=== PATIENT | female | born 1950 | race American Indian/Alaskan Native ===

== ENCOUNTER 2020-03-13 10:04 | Outpatient (CLI) | payer OTHER ==
[2020-03-13] MEDS ORDERED: LIDOCAINE (4%) 40 MG/ML TOPICAL SOLN 50 ML BOTTLE TP ONE (10:05)
== END 2020-03-13 10:05 | disposition home or self-care (01) ==
LOC: WOUND 10:04
PROVIDERS: ATTEND Surgery
DX: I87.313 Chronic venous hypertension (idiopathic) with ulcer of bilateral lower extremity (principal); E11.622 Type 2 diabetes mellitus with other skin ulcer; L97.822 Non-pressure chronic ulcer of other part of left lower leg with fat layer exposed; L97.811 Non-pressure chronic ulcer of other part of right lower leg limited to breakdown of skin; I10 Essential (primary) hypertension; E78.5 Hyperlipidemia, unspecified; Z87.891 Personal history of nicotine dependence

== ENCOUNTER 2021-11-26 15:32 | Outpatient (CLI) | payer MEDICARE ==
[2021-11-26 16:01] LABS: Hematocrit 34.9 % (30.3-42.9); Hemoglobin 11.4 gm/dl (10.1-14.3); Mean Corpuscular HGB Conc 33 % (30-34); Mean Corpuscular Volume 93 fl (79-97); Platelet Count 455 K/mm3 (140-440); Red Blood Count 3.73 M/mm3 (3.65-5.03); Red Cell Distribution Width 16.5 % (13.2-15.2)
[2021-11-26 16:19] LABS: Calcium 9.4 mg/dL (8.4-10.2)
[2021-11-26 16:45] LABS: Anisocytosis 1+; Basophils % (Manual) 0 % (0.0-1.8); Eosinophils % (Manual) 0 % (0.0-4.3); Total Cells Counted 100
[2021-11-26 16:46] LABS: Platelet Estimate Consistent w Auto; Toxic Granulation 2+; Toxic Vacuolation 1+
== END 2021-11-26 15:33 | disposition home or self-care (01) ==
LOC: LAB 15:32
PROVIDERS: ATTEND Surgery
DX: I10 Essential (primary) hypertension (principal); E11.9 Type 2 diabetes mellitus without complications; E78.5 Hyperlipidemia, unspecified
CPT/HCPCS: 36415; 80053; 83036; 85007; 85025

== ENCOUNTER 2021-11-26 17:40 | Observation (INO) | payer MEDICARE ==
[2021-11-26 20:17] LABS: Hematocrit 34.8 % (30.3-42.9); Hemoglobin 11.3 gm/dl (10.1-14.3); Mean Corpuscular HGB Conc 33 % (30-34); Mean Corpuscular Volume 93 fl (79-97); Platelet Count 495 K/mm3 (140-440); Red Blood Count 3.74 M/mm3 (3.65-5.03); Red Cell Distribution Width 16.1 % (13.2-15.2)
[2021-11-26 20:36] LABS: Albumin 2.9 g/dL (3.9-5); Calcium 9.4 mg/dL (8.4-10.2)
[2021-11-26] MEDS ORDERED: CEFEPIME/NS 1 GM/100 ML 1 GM/100 ML BAG IV ONE (20:40)
[2021-11-26] MEDS ORDERED: ONDANSETRON 4 MG/2 ML INJ IV ONE (20:42)
[2021-11-26] MEDS ORDERED: fentaNYL 100 MCG/2 ML INJ IV ONE (20:42)
--- NOTE | 2021-11-26 20:51 | Emergency Department Report ---
HPI - General Chief Complaint: Recheck/Abnormal Lab/Rx Time Seen by Provider: 11/26/21 20:25 - HPI HPI: MSE 5 The patient is a 71-year-old female present with a chief complaint of lower extremity infection/leukocytosis. Patient has a history of chronic lower extremity ulcers secondary to diabetes and is followed by a surgeon Dr. Sterling. The patient had an appointment today for debridement and surgeon was concerned for infection and sent the patient to the hospital for labs. Labs were drawn revealed leukocytosis with a white count of 21.1. Dr. Sterling then called the patient at home and instructed her to come to the hospital. Patient admits to chronic clear drainage from the wound for over a year. Patient denies history of fever. Patient complains of chronic pain to the lower extremities since last year ED Past Medical Hx - Past Medical History Hx Diabetes: Yes Additional medical history: DIABETIC ULCERS/ HIGH CHLOESTROL - Surgical History Hx Breast Surgery: Yes (Lumpectomy) Additional Surgical History: Lower extremity chronic ulcer debridements - Family History Family history: no significant - Social History Smoking Status: Former Smoker (None x >15 years) Substance Use Type: Alcohol (Occasional) ED Review of Systems ROS: Stated complaint: BLOOD RESULTS Other details as noted in HPI Constitutional: denies: fever Eyes: denies: eye pain ENT: denies: throat pain Respiratory: no symptoms reported Cardiovascular: denies: chest pain Endocrine: no symptoms reported Gastrointestinal: denies: abdominal pain Genitourinary: denies: dysuria Musculoskeletal: denies: back pain Skin: lesions Neurological: denies: headache Physical Exam - Physical Exam Vital Signs: Vital Signs 11/26/21 18:50 Temperature 98.2 F Pulse Rate 112 H Respiratory 20 Rate Blood Pressure 147/80 O2 Sat by Pulse 99 Oximetry Physical Exam: GENERAL: The patient is well-developed well-nourished female sitting in wheelchair not appearing to be in acute distress HEENT: Normocephalic. Atraumatic. Extraocular motions are intact. Patient has moist mucous membranes. NECK: Supple. Trachea midline CHEST/LUNGS: Clear to auscultation. There is no respiratory distress noted. HEART/CARDIOVASCULAR: Regular. There is tachycardia. There is no gallop rub or murmur. ABDOMEN: Abdomen is soft, nontender. Patient has normal bowel sounds. There is no abdominal distention. SKIN: . There is no diaphoresis. Left lower extremity with circumferential ulceration status post debridement of healthy-appearing granulation tissue copious serous drainage present on dressing. Right lower extremity with denuded skin circumferentially. NEURO: The patient is awake, alert, and oriented. The patient is cooperative. The patient has no focal neurologic deficits. The patient has normal speech. GCS 15 MUSCULOSKELETAL: There is no evidence of acute injury. ED Course Vital Signs 11/26/21 18:50 Temperature 98.2 F Pulse Rate 112 H Respiratory 20 Rate Blood Pressure 147/80 O2 Sat by Pulse 99 Oximetry ED Medical Decision Making - Lab Data Result diagrams: 11/26/21 19:54 11/26/21 19:54 Laboratory Tests 11/26/21 11/26/21 11/26/21 19:54 19:54 19:54 WBC 21.5 H RBC 3.74 Hgb 11.3 Hct 34.8 MCV 93 MCH 30 MCHC 33 RDW 16.1 H Plt Count 495 H Sodium 130 L Potassium 5.6 H Chloride 92.7 L Carbon Dioxide 20 L Anion Gap 23 BUN 27 H Creatinine 1.8 H Estimated GFR 33 BUN/Creatinine Ratio 15 Glucose 137 H Lactic Acid 1.50 Calcium 9.4 Total Bilirubin 0.40 AST 47 H ALT 31 Alkaline Phosphatase 170 H Total Protein 7.7 Albumin 2.9 L Albumin/Globulin Ratio 0.6 - Differential Diagnosis Diabetic wound infection Critical care attestation.: If time is entered above; I have spent that time in minutes in the direct care of this critically ill patient, excluding procedure time. ED Disposition Clinical Impression: Wound infection, Leukocytosis, Renal insufficiency, Hyperkalemia Disposition: ADMITTED INPATIENT Is pt being admited?: Yes Does the pt Need Aspirin: No Condition: Fair Time of Disposition: 21:15 (Hospitalist called (Dr Aragon))
[2021-11-26] MEDS ORDERED: SODIUM POLYSTYRENE 15 GM/60 ML ORAL LIQD PO ONE (20:57)
[2021-11-26] MEDS ORDERED: CALCIUM GLUCONATE 1,000 MG in SODIUM CHLORIDE 0.9% 100 ML IV ONE (20:59)
[2021-11-26] MEDS ORDERED: ACETAMINOPHEN 325 MG TAB PO PRN (22:32)
[2021-11-26] MEDS ORDERED: ONDANSETRON 4 MG/2 ML INJ IV PRN (22:32)
[2021-11-26] MEDS ORDERED: MAGNESIUM HYDROXIDE (MOM) ORAL LIQD UDC PO PRN (22:32)
[2021-11-26] MEDS ORDERED: DEXTROSE 10% *Hypoglycemia IV PRN (22:41)
--- NOTE | 2021-11-26 22:42 | History and Physical Report ---
History of Present Illness Date of examination: 11/26/21 Date of admission: 11/26/2021 Chief complaint: Wound Infection History of present illness: 71-year-old female with known history of diabetes mellitus and chronic bilateral lower extremity ulcers presents to the emergency room today after being referred by her surgeon Dr. Sterling for further evaluation with concerns for possible infection. Patient was said to have had an appointment for debridement today per surgeon decided to send patient to the emergency room to have labs and to be further evaluated. Labs drawn reveals a leukocytosis of 21.1 Patient denies any fever or chills, no chest pain or shortness of breath, no nausea vomiting and no abdominal pain. She admits that wound has had clear drainage from the wound over the past 1 year. She has also been having chronic bilateral lower extremity pain. Further work-up today reveals hyponatremia 130 and hyperkalemia 5.6. Patient being admitted for possible infected lower extremity wound and hyperkalemia. She has been started on empiric IV antibiotics and has also had a dose of Kayexalate. Past History Past Medical History: diabetes Past Surgical History: Other (Lower extremity chronic ulcer debridements,Lumpectomy) Social history: smoking (Former Smoker (None x >15 years)), alcohol abuse (Alcohol (Occasional)) Family history: no significant family history Medications and Allergies Allergies Allergy/AdvReac Type Severity Reaction Status Date / Time No Known Allergies Allergy Verified 11/26/21 18:42 Active Meds: Active Medications CALC GLUCONATE 1GM/NS 100 ML (Calcium Gluonate/Ns 1,000mg/100ml) 1 gm in 100 mls @ 375 mls/hr IV ONCE ONE Stop: 11/26/21 22:45 Review of Systems Constitutional: no fever, no chills Ears, nose, mouth and throat: no nasal congestion, no sore throat Cardiovascular: no chest pain, no palpitations Respiratory: no cough, no shortness of breath Gastrointestinal: no abdominal pain, no nausea, no vomiting, no diarrhea Genitourinary Female: no pelvic pain, no flank pain, no dysuria, no hematuria Musculoskeletal: no neck pain, no low back pain Integumentary: no rash, no pruritis Neurological: no headaches, no confusion Psychiatric: no anxiety, no depression Endocrine: no polydipsia, no polyuria, no nocturia Exam - Constitutional Vitals: Temp Pulse Resp BP Pulse Ox 98.2 F 112 H 20 147/80 99 11/26/21 18:50 11/26/21 18:50 11/26/21 18:50 11/26/21 18:50 11/26/21 18:50 General appearance: Present: no acute distress, well-nourished - EENT Eyes: Present: PERRL, EOM intact. Absent: scleral icterus ENT: hearing intact, clear oral mucosa, dentition normal - Neck Neck: Present: supple, normal ROM - Respiratory Respiratory effort: normal Respiratory: bilateral: CTA - Cardiovascular Rhythm: regular Heart Sounds: Present: S1 & S2. Absent: gallop, systolic murmur, diastolic murmur, rub, click - Extremities Extremities: no ischemia, pulses intact, pulses symmetrical, No edema, normal temperature, normal color, Full ROM Extremity abnormal: ulceration (Open ulcers on both lower extremities,left leg ulcer more prominent than the right, no obvious bleeding.,tender)), tenderness Peripheral Pulses: within normal limits - Abdominal General gastrointestinal: Present: soft, non-tender, non-distended, normal bowel sounds. Absent: mass - Musculoskeletal Musculoskeletal: strength equal bilaterally - Psychiatric Psychiatric: appropriate mood/affect, intact judgment & insight, memory intact, cooperative - Neurologic Neurologic: CNII-XII intact, no focal deficits, moves all extremities Results - Labs CBC & Chem 7: 11/26/21 19:54 11/26/21 19:54 Labs: Abnormal lab results 11/26/21 11/26/21 Range/Units 19:54 19:54 WBC 21.5 H (4.5-11.0) K/mm3 RDW 16.1 H (13.2-15.2) % Plt Count 495 H (140-440) K/mm3 Sodium 130 L (137-145) mmol/L Potassium 5.6 H (3.6-5.0) mmol/L Chloride 92.7 L (98-107) mmol/L Carbon Dioxide 20 L (22-30) mmol/L BUN 27 H (7-17) mg/dL Creatinine 1.8 H (0.6-1.2) mg/dL Glucose 137 H (65-100) mg/dL AST 47 H (5-40) units/L Alkaline Phosphatase 170 H (35-129) units/L Albumin 2.9 L (3.9-5) g/dL Assessment and Plan - Patient Problems (1) Wound infection Current Visit: Yes Status: Acute Plan to address problem: Patient commenced on empiric IV antibiotics. Patient being followed by surgeon Dr. Sterling. We will also place consult to wound care team for evaluation. (2) Diabetes mellitus Current Visit: Yes Status: Acute Plan to address problem: Patient placed on sliding scale insulin. We will monitor Accu-Cheks closely. (3) Hyperkalemia Current Visit: Yes Status: Acute Plan to address problem: Patient has been given Kayexalate in the emergency room. We will monitor potassium levels. (4) Leukocytosis Current Visit: Yes Status: Acute Plan to address problem: Possibly secondary to underlying infection. We will continue on antibiotics and also monitor CBC. (5) Renal insufficiency Current Visit: Yes Status: Acute Plan to address problem: We will hydrate patient with IV fluid. We will request nephrology evaluation. (6) DVT prophylaxis Current Visit: Yes Status: Acute Plan to address problem: We will place patient on subcutaneous heparin. (7) Full code status Current Visit: Yes Status: Acute Plan to address problem: Patient is full code.
[2021-11-26] MEDS: CALC GLUCONATE 1GM/NS 100 ML 1 GM/100 ML BAG IV ONE (22:50)
[2021-11-26] MEDS: HYDROmorphone 1 MG/1 ML INJ IV PRN (22:55)
[2021-11-26] MEDS: VANCOMYCIN/NS 1 GM/250 ML 1 GM/250 ML BAG IV ONE (22:57)
[2021-11-27 00:41] LABS: Total Cells Counted 100
[2021-11-27 00:42] LABS: Basophils % (Manual) 0 % (0.0-1.8); Eosinophils % (Manual) 0 % (0.0-4.3)
[2021-11-27 00:44] LABS: Anisocytosis 1+; Platelet Estimate Consistent w Auto
[2021-11-27] MEDS ORDERED: VANCOMYCIN PHARMACY TO DOSE IV SCH (01:00)
[2021-11-27] MEDS ORDERED: PIPERACIL/TAZOBACTA 4.5/NS 100 4.5 GM/100 ML VIAL IV SCH (01:00)
[2021-11-27] MEDS: SODIUM CHLORIDE 0.9% 1000 ML 1,000 ML IV SCH ×2 (01:00→12:59)
[2021-11-27] MEDS: HYDROmorphone 1 MG/1 ML INJ IV PRN ×4 (02:32→16:20)
[2021-11-27] MEDS: PIPERACIL-TAZO 2.25 GM/50 ML 2.25 GM/50 ML BAG IV SCH ×2 (05:31→12:59)
[2021-11-27] MEDS: HEPARIN 5,000 UNIT/1 ML VIAL SUB-Q SCH ×3 (05:32→22:02)
[2021-11-27 06:52] LABS: Calcium 8.1 mg/dL (8.4-10.2)
--- NOTE | 2021-11-27 08:05 | Progress Note ---
Assessment and Plan Assessment and plan: #Sepsis #Bilateral chronic venous stasis with ulceration -General Surgery evaluated patient and is okay with discharge and outpatient follow up if clinically improved -continue vancomycin, zosyn discontinued and rocephin started -will be discharged with doxycycline 100mg BID with 7 day total course -patient encouraged to keep legs elevated whenever possible -qday wound dressing changes per Surgeon recommendations -ID following, assistance appreciated #Acute kidney injury -Cr 1.4 -likely secondary to vasomotor nephropathy 2/2 to volume depletion -noted improvement with IVF, will continue #Volume depletion -continue IVFs #Advance care planning -Disease education, care plan, diagnosis, prognosis discussed with next of kin and patient. They understand and acknowledges current plan. -Patient will be discharged with home health services and will follow up with Dr. Sterling outpatient -Time: +30 minutes History Interval history: No acute events overnight. Dressing changes this morning. Patient currently without pain. No complaints at this time. Hospitalist Physical - Physical exam Narrative exam: GENERAL: Well-developed well-nourished. In no acute distress. HEENT: Normocephalic. Atraumatic. NECK: Supple. CHEST/LUNGS: CTAB on room air HEART/CARDIOVASCULAR: RRR. No murmur, rubs or gallops appreciated. ABDOMEN: +BS. NT/ND. NEURO: No focal motor deficit. Follows all commands. MUSCULOSKELETAL: No joint effusion EXTREMITIES: BLE dressing intact PSYCH: Cooperative. - Constitutional Vitals: Temp Pulse Resp BP Pulse Ox 97.8 F 92 H 16 126/70 99 11/27/21 04:20 11/27/21 04:20 11/27/21 04:20 11/27/21 04:20 11/27/21 04:20 General appearance: Present: no acute distress, well-nourished HEART Score - HEART Score Troponin: WBC 21.5 K/mm3 (4.5-11.0) H 11/26/21 19:54 RBC 3.74 M/mm3 (3.65-5.03) 11/26/21 19:54 Hgb 11.3 gm/dl (10.1-14.3) 11/26/21 19:54 Hct 34.8 % (30.3-42.9) 11/26/21 19:54 MCV 93 fl (79-97) 11/26/21 19:54 MCH 30 pg (28-32) 11/26/21 19:54 MCHC 33 % (30-34) 11/26/21 19:54 RDW 16.1 % (13.2-15.2) H 11/26/21 19:54 Plt Count 495 K/mm3 (140-440) H 11/26/21 19:54 Add Manual Diff Complete 11/26/21 19:54 Total Counted 100 11/26/21 19:54 Seg Neuts % (Manual) 87.0 % (40.0-70.0) H 11/26/21 19:54 Band Neutrophils % 0 % 11/26/21 19:54 Lymphocytes % (Manual) 12.0 % (13.4-35.0) L 11/26/21 19:54 Reactive Lymphs % (Man) 0 % 11/26/21 19:54 Monocytes % (Manual) 1.0 % (0.0-7.3) 11/26/21 19:54 Eosinophils % (Manual) 0 % (0.0-4.3) 11/26/21 19:54 Basophils % (Manual) 0 % (0.0-1.8) 11/26/21 19:54 Metamyelocytes % 0 % 11/26/21 19:54 Myelocytes % 0 % 11/26/21 19:54 Promyelocytes % 0 % 11/26/21 19:54 Blast Cells % 0 % 11/26/21 19:54 Nucleated RBC % Not Reportable 11/26/21 19:54 Seg Neutrophils # Man 18.7 K/mm3 (1.8-7.7) H 11/26/21 19:54 Band Neutrophils # 0.0 K/mm3 11/26/21 19:54 Lymphocytes # (Manual) 2.6 K/mm3 (1.2-5.4) 11/26/21 19:54 Abs React Lymphs (Man) 0.0 K/mm3 11/26/21 19:54 Monocytes # (Manual) 0.2 K/mm3 (0.0-0.8) 11/26/21 19:54 Eosinophils # (Manual) 0.0 K/mm3 (0.0-0.4) 11/26/21 19:54 Basophils # (Manual) 0.0 K/mm3 (0.0-0.1) 11/26/21 19:54 Metamyelocytes # 0.0 K/mm3 11/26/21 19:54 Myelocytes # 0.0 K/mm3 11/26/21 19:54 Promyelocytes # 0.0 K/mm3 11/26/21 19:54 Blast Cells # 0.0 K/mm3 11/26/21 19:54 WBC Morphology Not Reportable 11/26/21 19:54 Hypersegmented Neuts Not Reportable 11/26/21 19:54 Hyposegmented Neuts Not Reportable 11/26/21 19:54 Hypogranular Neuts Not Reportable 11/26/21 19:54 Smudge Cells Not Reportable 11/26/21 19:54 Toxic Granulation Not Reportable 11/26/21 19:54 Toxic Vacuolation Not Reportable 11/26/21 19:54 Dohle Bodies Not Reportable 11/26/21 19:54 Pelger-Huet Anomaly Not Reportable 11/26/21 19:54 Gerardo Rods Not Reportable 11/26/21 19:54 Platelet Estimate Consistent w auto 11/26/21 19:54 Clumped Platelets Not Reportable 11/26/21 19:54 Plt Clumps, EDTA Not Reportable 11/26/21 19:54 Large Platelets Not Reportable 11/26/21 19:54 Giant Platelets Not Reportable 11/26/21 19:54 Platelet Satelliting Not Reportable 11/26/21 19:54 Plt Morphology Comment Not Reportable 11/26/21 19:54 RBC Morphology Not Reportable 11/26/21 19:54 Dimorphic RBCs Not Reportable 11/26/21 19:54 Polychromasia Not Reportable 11/26/21 19:54 Hypochromasia Not Reportable 11/26/21 19:54 Poikilocytosis Not Reportable 11/26/21 19:54 Anisocytosis 1+ 11/26/21 19:54 Microcytosis Not Reportable 11/26/21 19:54 Macrocytosis Not Reportable 11/26/21 19:54 Spherocytes Not Reportable 11/26/21 19:54 Pappenheimer Bodies Not Reportable 11/26/21 19:54 Sickle Cells Not Reportable 11/26/21 19:54 Target Cells Not Reportable 11/26/21 19:54 Tear Drop Cells Not Reportable 11/26/21 19:54 Ovalocytes Not Reportable 11/26/21 19:54 Helmet Cells Not Reportable 11/26/21 19:54 Silverio-[place]urnee Bodies Not Reportable 11/26/21 19:54 [place] Rings Not Reportable 11/26/21 19:54 Sweetie Cells Not Reportable 11/26/21 19:54 Bite Cells Not Reportable 11/26/21 19:54 Crenated Cell Not Reportable 11/26/21 19:54 Elliptocytes Not Reportable 11/26/21 19:54 Acanthocytes (Spur) Not Reportable 11/26/21 19:54 Rouleaux Not Reportable 11/26/21 19:54 Hemoglobin C Crystals Not Reportable 11/26/21 19:54 Schistocytes Not Reportable 11/26/21 19:54 Malaria parasites Not Reportable 11/26/21 19:54 Filipe Bodies Not Reportable 11/26/21 19:54 Hem Pathologist Commnt No 11/26/21 19:54 Sodium 132 mmol/L (137-145) L 11/27/21 06:16 Potassium 4.0 mmol/L (3.6-5.0) D 11/27/21 06:16 Chloride 97.4 mmol/L (98-107) L 11/27/21 06:16 Carbon Dioxide 21 mmol/L (22-30) L 11/27/21 06:16 Anion Gap 18 mmol/L 11/27/21 06:16 BUN 24 mg/dL (7-17) H 11/27/21 06:16 Creatinine 1.4 mg/dL (0.6-1.2) H 11/27/21 06:16 Estimated GFR 45 ml/min 11/27/21 06:16 BUN/Creatinine Ratio 17 % 11/27/21 06:16 Glucose 201 mg/dL (65-100) H 11/27/21 06:16 POC Glucose 157 mg/dL (70-105) H 11/27/21 00:33 Lactic Acid 1.50 mmol/L (0.7-2.0) 11/26/21 19:54 Calcium 8.1 mg/dL (8.4-10.2) L 11/27/21 06:16 Total Bilirubin 0.40 mg/dL (0.1-1.2) 11/26/21 19:54 AST 47 units/L (5-40) H 11/26/21 19:54 ALT 31 units/L (7-56) 11/26/21 19:54 Alkaline Phosphatase 170 units/L (35-129) H 11/26/21 19:54 Total Protein 7.7 g/dL (6.3-8.2) 11/26/21 19:54 Albumin 2.9 g/dL (3.9-5) L 11/26/21 19:54 Albumin/Globulin Ratio 0.6 % 11/26/21 19:54 Results - Labs CBC & Chem 7: 11/28/21 04:52 11/28/21 04:52 Labs: Laboratory Last Values WBC 21.5 K/mm3 (4.5-11.0) H 11/26/21 19:54 RBC 3.74 M/mm3 (3.65-5.03) 11/26/21 19:54 Hgb 11.3 gm/dl (10.1-14.3) 11/26/21 19:54 Hct 34.8 % (30.3-42.9) 11/26/21 19:54 MCV 93 fl (79-97) 11/26/21 19:54 MCH 30 pg (28-32) 11/26/21 19:54 MCHC 33 % (30-34) 11/26/21 19:54 RDW 16.1 % (13.2-15.2) H 11/26/21 19:54 Plt Count 495 K/mm3 (140-440) H 11/26/21 19:54 Add Manual Diff Complete 11/26/21 19:54 Total Counted 100 11/26/21 19:54 Seg Neuts % (Manual) 87.0 % (40.0-70.0) H 11/26/21 19:54 Band Neutrophils % 0 % 11/26/21 19:54 Lymphocytes % (Manual) 12.0 % (13.4-35.0) L 11/26/21 19:54 Reactive Lymphs % (Man) 0 % 11/26/21 19:54 Monocytes % (Manual) 1.0 % (0.0-7.3) 11/26/21 19:54 Eosinophils % (Manual) 0 % (0.0-4.3) 11/26/21 19:54 Basophils % (Manual) 0 % (0.0-1.8) 11/26/21 19:54 Metamyelocytes % 0 % 11/26/21 19:54 Myelocytes % 0 % 11/26/21 19:54 Promyelocytes % 0 % 11/26/21 19:54 Blast Cells % 0 % 11/26/21 19:54 Nucleated RBC % Not Reportable 11/26/21 19:54 Seg Neutrophils # Man 18.7 K/mm3 (1.8-7.7) H 11/26/21 19:54 Band Neutrophils # 0.0 K/mm3 11/26/21 19:54 Lymphocytes # (Manual) 2.6 K/mm3 (1.2-5.4) 11/26/21 19:54 Abs React Lymphs (Man) 0.0 K/mm3 11/26/21 19:54 Monocytes # (Manual) 0.2 K/mm3 (0.0-0.8) 11/26/21 19:54 Eosinophils # (Manual) 0.0 K/mm3 (0.0-0.4) 11/26/21 19:54 Basophils # (Manual) 0.0 K/mm3 (0.0-0.1) 11/26/21 19:54 Metamyelocytes # 0.0 K/mm3 11/26/21 19:54 Myelocytes # 0.0 K/mm3 11/26/21 19:54 Promyelocytes # 0.0 K/mm3 11/26/21 19:54 Blast Cells # 0.0 K/mm3 11/26/21 19:54 WBC Morphology Not Reportable 11/26/21 19:54 Hypersegmented Neuts Not Reportable 11/26/21 19:54 Hyposegmented Neuts Not Reportable 11/26/21 19:54 Hypogranular Neuts Not Reportable 11/26/21 19:54 Smudge Cells Not Reportable 11/26/21 19:54 Toxic Granulation Not Reportable 11/26/21 19:54 Toxic Vacuolation Not Reportable 11/26/21 19:54 Dohle Bodies Not Reportable 11/26/21 19:54 Pelger-Huet Anomaly Not Reportable 11/26/21 19:54 Gerardo Rods Not Reportable 11/26/21 19:54 Platelet Estimate Consistent w auto 11/26/21 19:54 Clumped Platelets Not Reportable 11/26/21 19:54 Plt Clumps, EDTA Not Reportable 11/26/21 19:54 Large Platelets Not Reportable 11/26/21 19:54 Giant Platelets Not Reportable 11/26/21 19:54 Platelet Satelliting Not Reportable 11/26/21 19:54 Plt Morphology Comment Not Reportable 11/26/21 19:54 RBC Morphology Not Reportable 11/26/21 19:54 Dimorphic RBCs Not Reportable 11/26/21 19:54 Polychromasia Not Reportable 11/26/21 19:54 Hypochromasia Not Reportable 11/26/21 19:54 Poikilocytosis Not Reportable 11/26/21 19:54 Anisocytosis 1+ 11/26/21 19:54 Microcytosis Not Reportable 11/26/21 19:54 Macrocytosis Not Reportable 11/26/21 19:54 Spherocytes Not Reportable 11/26/21 19:54 Pappenheimer Bodies Not Reportable 11/26/21 19:54 Sickle Cells Not Reportable 11/26/21 19:54 Target Cells Not Reportable 11/26/21 19:54 Tear Drop Cells Not Reportable 11/26/21 19:54 Ovalocytes Not Reportable 11/26/21 19:54 Helmet Cells Not Reportable 11/26/21 19:54 Silverio-Gurnee Bodies Not Reportable 11/26/21 19:54 [place] Rings Not Reportable 11/26/21 19:54 [place] Cells Not Reportable 11/26/21 19:54 Bite Cells Not Reportable 11/26/21 19:54 Crenated Cell Not Reportable 11/26/21 19:54 Elliptocytes Not Reportable 11/26/21 19:54 Acanthocytes (Spur) Not Reportable 11/26/21 19:54 Rouleaux Not Reportable 11/26/21 19:54 Hemoglobin C Crystals Not Reportable 11/26/21 19:54 Schistocytes Not Reportable 11/26/21 19:54 Malaria parasites Not Reportable 11/26/21 19:54 Filipe Bodies Not Reportable 11/26/21 19:54 Hem Pathologist Commnt No 11/26/21 19:54 Sodium 132 mmol/L (137-145) L 11/27/21 06:16 Potassium 4.0 mmol/L (3.6-5.0) D 11/27/21 06:16 Chloride 97.4 mmol/L (98-107) L 11/27/21 06:16 Carbon Dioxide 21 mmol/L (22-30) L 11/27/21 06:16 Anion Gap 18 mmol/L 11/27/21 06:16 BUN 24 mg/dL (7-17) H 11/27/21 06:16 Creatinine 1.4 mg/dL (0.6-1.2) H 11/27/21 06:16 Estimated GFR 45 ml/min 11/27/21 06:16 BUN/Creatinine Ratio 17 % 11/27/21 06:16 Glucose 201 mg/dL (65-100) H 11/27/21 06:16 POC Glucose 157 mg/dL (70-105) H 11/27/21 00:33 Lactic Acid 1.50 mmol/L (0.7-2.0) 11/26/21 19:54 Calcium 8.1 mg/dL (8.4-10.2) L 11/27/21 06:16 Total Bilirubin 0.40 mg/dL (0.1-1.2) 11/26/21 19:54 AST 47 units/L (5-40) H 11/26/21 19:54 ALT 31 units/L (7-56) 11/26/21 19:54 Alkaline Phosphatase 170 units/L (35-129) H 11/26/21 19:54 Total Protein 7.7 g/dL (6.3-8.2) 11/26/21 19:54 Albumin 2.9 g/dL (3.9-5) L 11/26/21 19:54 Albumin/Globulin Ratio 0.6 % 11/26/21 19:54 Microbiology: Microbiology 11/26/21 20:05 Peripheral/Venous Blood Culture - Preliminary Culture in Progress 11/26/21 19:54 Peripheral/Venous Blood Culture - Preliminary Culture in Progress Active Medications - Current Medications Current Medications: Generic Name Dose Route Start Last Admin Trade Name Freq PRN Reason Stop Dose Admin Acetaminophen 650 mg 11/26/21 22:32 Acetaminophen 325 Mg Tab PO Q4H PRN Pain MILD(1-3)/Fever >100.5/GREY Dextrose 0 ml 11/26/21 22:41 Dextrose 10% *Hypoglycemia IV DIRECT PRN Hypoglycemia Protocol Heparin Sodium (Porcine) 5,000 unit 11/27/21 06:00 11/27/21 05:32 Heparin 5,000 Unit/1 Ml Vial SUB-Q 5,000 unit Q8HR OLIVIA Administration Hydromorphone HCl 1 mg 11/26/21 22:32 11/26/21 22:55 Hydromorphone 1 Mg/1 Ml Inj IV 1 mg Q3H PRN Administration Pain, Moderate (4-6) Hydromorphone HCl 2 mg 11/26/21 22:32 11/27/21 02:32 Hydromorphone 1 Mg/1 Ml Inj IV 2 mg Q3H PRN Administration Pain , Severe (7-10) Sodium Chloride 1,000 mls @ 125 mls/hr 11/26/21 22:45 11/27/21 01:00 Nacl 0.9% 1000 Ml IV 125 mls/hr DIRECT OLIVIA Administration Piperacillin Sod/Tazobactam Sod 2.25 gm in 50 mls @ 100 mls/hr 11/27/21 06:00 11/27/21 05:31 Zosyn/Ns 2.25 Gm/50ml IV 100 mls/hr Q6HR OLIVIA Administration Vancomycin HCl 1 gm in 250 mls @ 250 mls/hr 11/27/21 23:00 Vancomycin/Ns 1 Gm/250 Ml IV Q24H [facility] Insulin Human Lispro 0 unit 11/27/21 07:30 Insulin Lispro 100 Unit/Ml SUB-Q ACHS [facility] Protocol Magnesium Hydroxide 30 ml 11/26/21 22:32 Magnesium Hydroxide (Mom) Oral Liqd Udc PO Q4H PRN Constipation Ondansetron HCl 4 mg 11/26/21 22:32 Ondansetron 4 Mg/2 Ml Inj IV Q8H PRN Nausea And Vomiting Sodium Chloride 10 ml 11/27/21 10:00 Sodium Chloride 0.9% 10 Ml Flush Syringe IV BID OLIVIA Sodium Chloride 10 ml 11/26/21 22:32 Sodium Chloride 0.9% 10 Ml Flush Syringe IV PRN PRN LINE FLUSH
[2021-11-27] MEDS: INSULIN LISPRO 100 UNIT/ML SUB-Q SCH ×4 (09:44→21:42)
--- NOTE | 2021-11-27 10:42 | Consultation ---
History of Present Illness Consult date: 11/27/21 - History of present illness History of present illness: 71 yo diabetic female with chronic, infected venous stasis ulcerations of her left leg. She has been managed in my office. She presented to my office yesterday for wound debridement and c/o new cramps in her hands which precluded her from doing her daily wound care. She had not changed her leg dressings in a week prior to yesterday. She admits that she needs help at home. She is not willing to consider NHP at the present. Past History Past Medical History: diabetes, hypertension, hyperlipidemia Past Surgical History: Other (Lower extremity chronic ulcer debridements,Lumpectomy) Social history: smoking (Former Smoker (None x >15 years)), alcohol abuse (Alcohol (Occasional)) Family history: no significant family history Medications and Allergies Allergies Allergy/AdvReac Type Severity Reaction Status Date / Time No Known Allergies Allergy Verified 11/26/21 18:42 Active Meds: Active Medications Acetaminophen (Acetaminophen 325 Mg Tab) 650 mg PO Q4H PRN PRN Reason: Pain MILD(1-3)/Fever >100.5/GREY Dextrose (Dextrose 10% *Hypoglycemia) 0 ml IV DIRECT PRN; Protocol PRN Reason: Hypoglycemia Heparin Sodium (Porcine) (Heparin 5,000 Unit/1 Ml Vial) 5,000 unit SUB-Q Q8HR [facility] Last Admin: 11/27/21 05:32 Dose: 5,000 unit Hydromorphone HCl (Hydromorphone 1 Mg/1 Ml Inj) 1 mg IV Q3H PRN PRN Reason: Pain, Moderate (4-6) Last Admin: 11/26/21 22:55 Dose: 1 mg Hydromorphone HCl (Hydromorphone 1 Mg/1 Ml Inj) 2 mg IV Q3H PRN PRN Reason: Pain , Severe (7-10) Last Admin: 11/27/21 09:44 Dose: 2 mg Sodium Chloride (Nacl 0.9% 1000 Ml) 1,000 mls @ 125 mls/hr IV DIRECT [facility] Last Admin: 11/27/21 01:00 Dose: 125 mls/hr Piperacillin Sod/Tazobactam Sod (Zosyn/Ns 2.25 Gm/50ml) 2.25 gm in 50 mls @ 100 mls/hr IV Q6HR [facility] Last Admin: 11/27/21 05:31 Dose: 100 mls/hr Vancomycin HCl (Vancomycin/Ns 1 Gm/250 Ml) 1 gm in 250 mls @ 250 mls/hr IV Q24H [facility] Insulin Human Lispro (Insulin Lispro 100 Unit/Ml) 0 unit SUB-Q ACHS [facility]; Protocol Last Admin: 11/27/21 09:44 Dose: 3 unit Magnesium Hydroxide (Magnesium Hydroxide (Mom) Oral Liqd Udc) 30 ml PO Q4H PRN PRN Reason: Constipation Ondansetron HCl (Ondansetron 4 Mg/2 Ml Inj) 4 mg IV Q8H PRN PRN Reason: Nausea And Vomiting Sodium Chloride (Sodium Chloride 0.9% 10 Ml Flush Syringe) 10 ml IV BID [facility] Last Admin: 11/27/21 09:46 Dose: 10 ml Sodium Chloride (Sodium Chloride 0.9% 10 Ml Flush Syringe) 10 ml IV PRN PRN PRN Reason: LINE FLUSH Sodium Hypochlorite (Sodium Hypochlorite, Dakin's Full Strength (0.5%) 473 Ml Topical Soln) 1 applic TP Q12H PRN PRN Reason: Wound Care Review of Systems All systems: negative (none.) Exam Vital Signs Temp Pulse Resp BP Pulse Ox 98.2 F 112 H 20 147/80 99 11/26/21 18:50 11/26/21 18:50 11/26/21 18:50 11/26/21 18:50 11/26/21 18:50 - General physical appearance Positive: well developed, well nourished, no distress - Eyes Positive: PERRL, normal occular movement - ENT Positive: normal pinna, normal nares, normal mucosa, no hearing loss, no congestion - Neck Positive: no masses, no bruits, trachea midline, no venous distension - Respiratory Positive: normal expansion, normal respiratory effort, clear to auscultation - Cardiovascular Rhythm: regular Heart Sounds: Present: S1 & S2. Absent: rub, click - Extremities Extremities: no ischemia, pulses symmetrical Extremity abnormal: other (3+ edema of the LLE. 1+ edema of the RLE.) - Breasts Breasts: normal, no mass, no skin changes - Abdomen Abdomen: Present: soft, bowel sounds normal. Absent: tender, distended Hernia: none - Genitourinary Male Genitourinary: normal Female Genitourinary: normal - Integumentary no rash, no growths, no abnormal pigmentation, other (Partial thickness wounds of the lateral right leg and deep SQ circumferential wounds of the left leg. See photos. BLE wounds were debrided yesterday in my office.) - Neurologic Neurologic: alert and oriented to time, place and person, motor strength and sensation are grossly intact - Musculoskeletal normal gait, normal posture - Psychiatric Psychiatric: appropriate mood/affect, intact judgment & insight Results - Labs 11/26/21 19:54 11/27/21 06:16 Abnormal lab results 11/26/21 11/26/21 11/27/21 Range/Units 19:54 19:54 00:33 WBC 21.5 H (4.5-11.0) K/mm3 RDW 16.1 H (13.2-15.2) % Plt Count 495 H (140-440) K/mm3 Seg Neuts % (Manual) 87.0 H (40.0-70.0) % Lymphocytes % (Manual) 12.0 L (13.4-35.0) % Seg Neutrophils # Man 18.7 H (1.8-7.7) K/mm3 Sodium 130 L (137-145) mmol/L Potassium 5.6 H (3.6-5.0) mmol/L Chloride 92.7 L (98-107) mmol/L Carbon Dioxide 20 L (22-30) mmol/L BUN 27 H (7-17) mg/dL Creatinine 1.8 H (0.6-1.2) mg/dL Glucose 137 H (65-100) mg/dL POC Glucose 157 H (70-105) mg/dL Calcium (8.4-10.2) mg/dL AST 47 H (5-40) units/L Alkaline Phosphatase 170 H (35-129) units/L Albumin 2.9 L (3.9-5) g/dL 11/27/21 11/27/21 Range/Units 06:16 09:04 WBC (4.5-11.0) K/mm3 RDW (13.2-15.2) % Plt Count (140-440) K/mm3 Seg Neuts % (Manual) (40.0-70.0) % Lymphocytes % (Manual) (13.4-35.0) % Seg Neutrophils # Man (1.8-7.7) K/mm3 Sodium 132 L (137-145) mmol/L Potassium (3.6-5.0) mmol/L Chloride 97.4 L (98-107) mmol/L Carbon Dioxide 21 L (22-30) mmol/L BUN 24 H (7-17) mg/dL Creatinine 1.4 H (0.6-1.2) mg/dL Glucose 201 H (65-100) mg/dL POC Glucose 213 H (70-105) mg/dL Calcium 8.1 L (8.4-10.2) mg/dL AST (5-40) units/L Alkaline Phosphatase (35-129) units/L Albumin (3.9-5) g/dL Diabetes panel 11/26/21 11/27/21 Range/Units 19:54 06:16 Sodium 130 L 132 L (137-145) mmol/L Potassium 5.6 H 4.0 D (3.6-5.0) mmol/L Chloride 92.7 L 97.4 L (98-107) mmol/L Carbon Dioxide 20 L 21 L (22-30) mmol/L BUN 27 H 24 H (7-17) mg/dL Creatinine 1.8 H 1.4 H (0.6-1.2) mg/dL Glucose 137 H 201 H (65-100) mg/dL Calcium 9.4 8.1 L (8.4-10.2) mg/dL AST 47 H (5-40) units/L ALT 31 (7-56) units/L Alkaline Phosphatase 170 H (35-129) units/L Total Protein 7.7 (6.3-8.2) g/dL Albumin 2.9 L (3.9-5) g/dL Calcium panel 11/26/21 11/27/21 Range/Units 19:54 06:16 Calcium 9.4 8.1 L (8.4-10.2) mg/dL Albumin 2.9 L (3.9-5) g/dL Pituitary panel 11/26/21 11/27/21 Range/Units 19:54 06:16 Sodium 130 L 132 L (137-145) mmol/L Potassium 5.6 H 4.0 D (3.6-5.0) mmol/L Chloride 92.7 L 97.4 L (98-107) mmol/L Carbon Dioxide 20 L 21 L (22-30) mmol/L BUN 27 H 24 H (7-17) mg/dL Creatinine 1.8 H 1.4 H (0.6-1.2) mg/dL Glucose 137 H 201 H (65-100) mg/dL Calcium 9.4 8.1 L (8.4-10.2) mg/dL Adrenal panel 11/26/21 11/27/21 Range/Units 19:54 06:16 Sodium 130 L 132 L (137-145) mmol/L Potassium 5.6 H 4.0 D (3.6-5.0) mmol/L Chloride 92.7 L 97.4 L (98-107) mmol/L Carbon Dioxide 20 L 21 L (22-30) mmol/L BUN 27 H 24 H (7-17) mg/dL Creatinine 1.8 H 1.4 H (0.6-1.2) mg/dL Glucose 137 H 201 H (65-100) mg/dL Calcium 9.4 8.1 L (8.4-10.2) mg/dL Total Bilirubin 0.40 (0.1-1.2) mg/dL AST 47 H (5-40) units/L ALT 31 (7-56) units/L Alkaline Phosphatase 170 H (35-129) units/L Total Protein 7.7 (6.3-8.2) g/dL Albumin 2.9 L (3.9-5) g/dL Assessment and Plan - Patient Problems (1) Wound infection Current Visit: Yes Status: Acute Plan to address problem: 1) Consider CXR, UA & CT abdomen and pelvis if leukocytosis does not respond appropriately to Zosyn/Vancocin. 2) Pt to keep her legs elevated at all times. 3) I have ordered wound care, in house and home health nursing wound care after discharge. 4) Repeat CBC 5) Pt can f/u in my office after discharge. [facility] does not participate in her insurance.
[2021-11-27] MEDS ORDERED: SODIUM HYPOCHLORITE, DAKIN'S FULL STRENGTH (0.5%) 473 ML TOPICAL SOLN TP PRN (11:00)
[2021-11-27 11:33] LABS: Basophils # (Auto) 0.1 K/mm3 (0.0-0.1); Basophils % (Auto) 0.6 % (0.0-1.8); Hemoglobin 9.2 gm/dl (10.1-14.3); Lymphocytes # (Auto) 1.2 K/mm3 (1.2-5.4); Lymphocytes % (Auto) 8.3 % (13.4-35.0); Mean Corpuscular HGB Conc 32 % (30-34); Mean Corpuscular Volume 95 fl (79-97); Monocytes # (Auto) 1.3 K/mm3 (0.0-0.8); Monocytes % (Auto) 8.6 % (0.0-7.3); Platelet Count 369 K/mm3 (140-440); Red Blood Count 3.06 M/mm3 (3.65-5.03); Red Cell Distribution Width 16.4 % (13.2-15.2)
[2021-11-27] MEDS ORDERED: ALPRAZolam 0.25 MG TAB PO PRN (11:55)
[2021-11-27] MEDS ORDERED: traMADol 50 MG TAB PO PRN (11:55)
[2021-11-27] MEDS ORDERED: FUROSEMIDE 20 MG TAB PO SCH (12:00)
[2021-11-27] MEDS: METOPROLOL SUCCINATE XL 50 MG TAB PO SCH (12:59)
--- NOTE | 2021-11-27 13:44 | Consultation ---
History of Present Illness - Reason for Consult Consult date: 11/27/21 - History of Present Illness 71-year-old female past medical history diabetes, chronic bilateral lower extremity ulcers presented to hospital due to concerns of possible infection. She has been seen by Dr. Sterling as an outpatient who recommended she present to the hospital. She was supposed to have a debridement as an outpatient. She is found to have leukocytosis and outpatient to 21. She otherwise denies any compl aints. Afebrile since admission with a white count 21.5 which is improved to 14.7. Currently on vancomycin and Zosyn. Blood cultures no growth so far. Review of Systems: Bold if positive, otherwise negative General: fevers, chills, rigors HEENT: visual disturbance, diplopia, eye pain Respiratory: cough, sputum, hemoptysis, shortness of breath Cardiovascular: chest pain, syncope Gastrointestinal: nausea, vomiting, diarrhea, abdominal pain Genitourinary: dysuria, hematuria, flank pain Musculoskeletal: neck pain, back pain, joint pain, edema Neurologic: headaches, seizures Hematologic: easy bruising or bleeding Endocrine: night sweats, acute weight loss Skin: rash, jaundice, redness Psychiatric: suicidal, homicidal ideation Past History Past Medical History: diabetes, hypertension, hyperlipidemia Past Surgical History: Other (Lower extremity chronic ulcer debridements,Lumpectomy) Social history: smoking (Former Smoker (None x >15 years)), alcohol abuse (Alcohol (Occasional)) Family history: no significant family history Medications and Allergies Allergies Allergy/AdvReac Type Severity Reaction Status Date / Time No Known Allergies Allergy Verified 11/26/21 18:42 Home Medications Medication Instructions Recorded Confirmed Last Taken Type ALPRAZolam [Xanax TAB] 0.25 mg PO Q6H PRN 11/27/21 11/27/21 Unknown History AtorvaSTATin [Lipitor] 40 mg PO QHS 11/27/21 11/27/21 Unknown History Furosemide [Lasix] 20 mg PO QDAY 11/27/21 11/27/21 Unknown History Losartan [Cozaar] 100 mg PO QDAY 11/27/21 11/27/21 Unknown History Metformin HCl [metFORMIN] 1,000 mg PO BID 11/27/21 11/27/21 Unknown History Metoprolol Xl [Metoprolol 50 mg PO QDAY 11/27/21 11/27/21 Unknown History SUCCINATE ER TAB] Pentoxifylline 400 mg PO TID 11/27/21 11/27/21 Unknown History Potassium Chloride [K-Dur] 20 meq PO QDAY 11/27/21 11/27/21 Unknown History traMADoL [Ultram] 50 mg PO TID PRN 11/27/21 11/27/21 Unknown History Active Meds: Active Medications Acetaminophen (Acetaminophen 325 Mg Tab) 650 mg PO Q4H PRN PRN Reason: Pain MILD(1-3)/Fever >100.5/GREY Alprazolam (Alprazolam 0.25 Mg Tab) 0.25 mg PO Q6H PRN PRN Reason: Anxiety Dextrose (Dextrose 10% *Hypoglycemia) 0 ml IV DIRECT PRN; Protocol PRN Reason: Hypoglycemia Furosemide (Furosemide 20 Mg Tab) 20 mg PO QDAY [facility] Last Admin: 11/27/21 12:59 Dose: 20 mg Heparin Sodium (Porcine) (Heparin 5,000 Unit/1 Ml Vial) 5,000 unit SUB-Q Q8HR [facility] Last Admin: 11/27/21 12:59 Dose: 5,000 unit Hydromorphone HCl (Hydromorphone 1 Mg/1 Ml Inj) 1 mg IV Q3H PRN PRN Reason: Pain, Moderate (4-6) Last Admin: 11/27/21 12:59 Dose: 1 mg Hydromorphone HCl (Hydromorphone 1 Mg/1 Ml Inj) 2 mg IV Q3H PRN PRN Reason: Pain , Severe (7-10) Last Admin: 11/27/21 09:44 Dose: 2 mg Sodium Chloride (Nacl 0.9% 1000 Ml) 1,000 mls @ 125 mls/hr IV DIRECT [facility] Last Admin: 11/27/21 12:59 Dose: 125 mls/hr Piperacillin Sod/Tazobactam Sod (Zosyn/Ns 2.25 Gm/50ml) 2.25 gm in 50 mls @ 100 mls/hr IV Q6HR [facility] Last Admin: 11/27/21 12:59 Dose: 100 mls/hr Vancomycin HCl (Vancomycin/Ns 1 Gm/250 Ml) 1 gm in 250 mls @ 250 mls/hr IV Q24H [facility] Insulin Human Lispro (Insulin Lispro 100 Unit/Ml) 0 unit SUB-Q ACHS [facility]; Protocol Last Admin: 11/27/21 12:59 Dose: 3 unit Losartan Potassium (Losartan 50 Mg Tab) 100 mg PO QDAY [facility] Magnesium Hydroxide (Magnesium Hydroxide (Mom) Oral Liqd Udc) 30 ml PO Q4H PRN PRN Reason: Constipation Metoprolol Succinate (Metoprolol Succinate Xl 50 Mg Tab) 50 mg PO QDAY [facility] Last Admin: 11/27/21 12:59 Dose: 50 mg Ondansetron HCl (Ondansetron 4 Mg/2 Ml Inj) 4 mg IV Q8H PRN PRN Reason: Nausea And Vomiting Pentoxifylline (Pentoxifylline Er 400 Mg Tab) 400 mg PO TID [facility] Sodium Chloride (Sodium Chloride 0.9% 10 Ml Flush Syringe) 10 ml IV BID [facility] Last Admin: 11/27/21 09:46 Dose: 10 ml Sodium Chloride (Sodium Chloride 0.9% 10 Ml Flush Syringe) 10 ml IV PRN PRN PRN Reason: LINE FLUSH Sodium Hypochlorite (Sodium Hypochlorite, Dakin's Full Strength (0.5%) 473 Ml Topical Soln) 1 applic TP Q12H PRN PRN Reason: Wound Care Tramadol HCl (Tramadol 50 Mg Tab) 50 mg PO TID PRN PRN Reason: pain Physical Examination - Physical Exam Narrative exam: Physical Exam: Constitutional: Alert, cooperative. No acute distress Head, Ears, Nose: Normocephalic, atraumatic. External ears, nose normal Eyes: Conjunctivae/corneas clear. No icterus. No ptosis. Neck: Supple, no meningeal signs Oral: dentition fair, no thrush Cardiovascular: S1, S2 normal. Respiratory: Good air entry, clear to auscultation bilaterally GI: Soft, non-tender; bowel sounds normal. No peritoneal signs. Musculoskeletal: Bilateral lower extremity wounds, left greater than right, circumferential Skin: No rash or abscess Hem/Lymphatic: No palpable cervical or supraclavicular nodes. No lymphangitis Psych: Mood ok. Affect normal Neurological: Awake, alert, oriented. No gross abnormality - Constitutional Vitals: Vital Signs Temp Pulse Resp BP Pulse Ox 97.8 F 92 H 16 126/70 98 11/27/21 04:20 11/27/21 04:20 11/27/21 04:20 11/27/21 04:20 11/27/21 08:54 Temperature -Last 24 Hours Temperature 97.8 F Temperature 97.5 F Temperature 98.2 F Results - Labs CBC & Chem 7: 11/27/21 10:43 11/27/21 06:16 Labs: Abnormal lab results 11/26/21 11/26/21 11/27/21 Range/Units 19:54 19:54 00:33 WBC 21.5 H (4.5-11.0) K/mm3 RBC (3.65-5.03) M/mm3 Hgb (10.1-14.3) gm/dl Hct (30.3-42.9) % RDW 16.1 H (13.2-15.2) % Plt Count 495 H (140-440) K/mm3 Lymph % (Auto) (13.4-35.0) % Hood % (Auto) (0.0-7.3) % Hood # (Auto) (0.0-0.8) K/mm3 Seg Neutrophils % (40.0-70.0) % Seg Neuts % (Manual) 87.0 H (40.0-70.0) % Lymphocytes % (Manual) 12.0 L (13.4-35.0) % Seg Neutrophils # (1.8-7.7) K/mm3 Seg Neutrophils # Man 18.7 H (1.8-7.7) K/mm3 Sodium 130 L (137-145) mmol/L Potassium 5.6 H (3.6-5.0) mmol/L Chloride 92.7 L (98-107) mmol/L Carbon Dioxide 20 L (22-30) mmol/L BUN 27 H (7-17) mg/dL Creatinine 1.8 H (0.6-1.2) mg/dL Glucose 137 H (65-100) mg/dL POC Glucose 157 H (70-105) mg/dL Calcium (8.4-10.2) mg/dL AST 47 H (5-40) units/L Alkaline Phosphatase 170 H (35-129) units/L Albumin 2.9 L (3.9-5) g/dL 11/27/21 11/27/21 11/27/21 Range/Units 06:16 09:04 10:43 WBC 14.7 H (4.5-11.0) K/mm3 RBC 3.06 L (3.65-5.03) M/mm3 Hgb 9.2 L (10.1-14.3) gm/dl Hct 29.0 L (30.3-42.9) % RDW 16.4 H (13.2-15.2) % Plt Count (140-440) K/mm3 Lymph % (Auto) 8.3 L (13.4-35.0) % Hood % (Auto) 8.6 H (0.0-7.3) % Hood # (Auto) 1.3 H (0.0-0.8) K/mm3 Seg Neutrophils % 82.5 H (40.0-70.0) % Seg Neuts % (Manual) (40.0-70.0) % Lymphocytes % (Manual) (13.4-35.0) % Seg Neutrophils # 12.2 H (1.8-7.7) K/mm3 Seg Neutrophils # Man (1.8-7.7) K/mm3 Sodium 132 L (137-145) mmol/L Potassium (3.6-5.0) mmol/L Chloride 97.4 L (98-107) mmol/L Carbon Dioxide 21 L (22-30) mmol/L BUN 24 H (7-17) mg/dL Creatinine 1.4 H (0.6-1.2) mg/dL Glucose 201 H (65-100) mg/dL POC Glucose 213 H (70-105) mg/dL Calcium 8.1 L (8.4-10.2) mg/dL AST (5-40) units/L Alkaline Phosphatase (35-129) units/L Albumin (3.9-5) g/dL /01/15 Range/Units 11:18 WBC (4.5-11.0) K/mm3 RBC (3.65-5.03) M/mm3 Hgb (10.1-14.3) gm/dl Hct (30.3-42.9) % RDW (13.2-15.2) % Plt Count (140-440) K/mm3 Lymph % (Auto) (13.4-35.0) % Hood % (Auto) (0.0-7.3) % Hood # (Auto) (0.0-0.8) K/mm3 Seg Neutrophils % (40.0-70.0) % Seg Neuts % (Manual) (40.0-70.0) % Lymphocytes % (Manual) (13.4-35.0) % Seg Neutrophils # (1.8-7.7) K/mm3 Seg Neutrophils # Man (1.8-7.7) K/mm3 Sodium (137-145) mmol/L Potassium (3.6-5.0) mmol/L Chloride (98-107) mmol/L Carbon Dioxide (22-30) mmol/L BUN (7-17) mg/dL Creatinine (0.6-1.2) mg/dL Glucose (65-100) mg/dL POC Glucose 214 H (70-105) mg/dL Calcium (8.4-10.2) mg/dL AST (5-40) units/L Alkaline Phosphatase (35-129) units/L Albumin (3.9-5) g/dL Assessment and Plan Cultures: Blood culture no growth so far A/P: 71-year-old female past medical history diabetes, hypertension, hyperlipidemia now with: #SIRS versus sepsis: With tachycardia and leukocytosis. She appears to have some level of hemoconcentration given drops in white count, hemoglobin, platelets after being rehydrated. Given deep level of ulceration and venous stasis dermatitis, difficult to tell if infection is present or not. She remains afebrile. #Left lower extremity venous stasis dermatitis, ulceration with possible super added cellulitis. #SYLVIA: Renally dose medications #Volume depletion: Has had relative drops in all blood markers since admission, has hyponatremia. Recs: -Stop Zosyn -Start ceftriaxone -Continue vancomycin -If continued improvement over the weekend, okay to discharge with doxycycline 100 mg every 12 hours to complete 7 days. Thank you for the consult, we will continue to follow. Ganesh Zepeda MD [facility] O: [phone] F: [phone]
[2021-11-27] MEDS ORDERED: cefTRIAXone/NS 2 GM/100 ML 2 GM/100 ML BAG IV SCH (14:00)
--- NOTE | 2021-11-27 17:17 | Consultation ---
History of Present Illness - Reason for Consult Consult date: 11/27/21 acute renal failure, hyponatremia Requesting physician: FLORES MOREL - History of Present Illness 71-year-old female with known history of diabetes mellitus and chronic bilateral lower extremity ulcers presents to the emergency room today after being referred by her surgeon Dr. Sterling for further evaluation with concerns for possible infection. Patient was said to have had an appointment for debridement today per surgeon decided to send patient to the emergency room to have labs and to be further evaluated. Labs drawn reveals a leukocytosis of 21.1 Patient denies any fever or chills, no chest pain or shortness of breath, no nausea vomiting and no abdominal pain. She admits that wound has had clear drainage from the wound over the past 1 year. She has also been having chronic bilateral lower extremity pain. Further work-up today reveals hyponatremia 130 and hyperkalemia 5.6. Patient being admitted for possible infected lower extremity wound and hyperkalemia. She has been started on empiric IV antibiotics and has also had a dose of Kayexalate. Past History Past Medical History: diabetes Past Surgical History: Other (Lower extremity chronic ulcer debridements,Lumpectomy) Social history: smoking (Former Smoker (None x >15 years)), alcohol abuse (Alcohol (Occasional)) Family history: no significant family history Review of Systems Constitutional: no fever, no chills Ears, nose, mouth and throat: no nasal congestion, no sore throat Cardiovascular: no chest pain, no palpitations Respiratory: no cough, no shortness of breath Gastrointestinal: no abdominal pain, no nausea, no vomiting, no diarrhea Genitourinary Female: no pelvic pain, no flank pain, no dysuria, no hematuria Musculoskeletal: no neck pain, no low back pain Integumentary: no rash, no pruritis Neurological: no headaches, no confusion Psychiatric: no anxiety, no depression Endocrine: no polydipsia, no polyuria, no nocturia Past History Past Medical History: diabetes, hypertension, hyperlipidemia Past Surgical History: Other (Lower extremity chronic ulcer debridements,Lumpectomy) Social history: smoking (Former Smoker (None x >15 years)), alcohol abuse (Alcohol (Occasional)) Family history: no significant family history Medications and Allergies Allergies Allergy/AdvReac Type Severity Reaction Status Date / Time No Known Allergies Allergy Verified 11/26/21 18:42 Home Medications Medication Instructions Recorded Confirmed Last Taken Type ALPRAZolam [Xanax TAB] 0.25 mg PO Q6H PRN 11/27/21 11/27/21 Unknown History AtorvaSTATin [Lipitor] 40 mg PO QHS 11/27/21 11/27/21 Unknown History Furosemide [Lasix] 20 mg PO QDAY 11/27/21 11/27/21 Unknown History Losartan [Cozaar] 100 mg PO QDAY 11/27/21 11/27/21 Unknown History Metformin HCl [metFORMIN] 1,000 mg PO BID 11/27/21 11/27/21 Unknown History Metoprolol Xl [Metoprolol 50 mg PO QDAY 11/27/21 11/27/21 Unknown History SUCCINATE ER TAB] Pentoxifylline 400 mg PO TID 11/27/21 11/27/21 Unknown History Potassium Chloride [K-Dur] 20 meq PO QDAY 11/27/21 11/27/21 Unknown History traMADoL [Ultram] 50 mg PO TID PRN 11/27/21 11/27/21 Unknown History Active Meds: Active Medications Acetaminophen (Acetaminophen 325 Mg Tab) 650 mg PO Q4H PRN PRN Reason: Pain MILD(1-3)/Fever >100.5/GREY Alprazolam (Alprazolam 0.25 Mg Tab) 0.25 mg PO Q6H PRN PRN Reason: Anxiety Dextrose (Dextrose 10% *Hypoglycemia) 0 ml IV DIRECT PRN; Protocol PRN Reason: Hypoglycemia Furosemide (Furosemide 20 Mg Tab) 20 mg PO QDAY [facility] Last Admin: 11/27/21 12:59 Dose: 20 mg Heparin Sodium (Porcine) (Heparin 5,000 Unit/1 Ml Vial) 5,000 unit SUB-Q Q8HR [facility] Last Admin: 11/27/21 12:59 Dose: 5,000 unit Hydromorphone HCl (Hydromorphone 1 Mg/1 Ml Inj) 1 mg IV Q3H PRN PRN Reason: Pain, Moderate (4-6) Last Admin: 11/27/21 12:59 Dose: 1 mg Hydromorphone HCl (Hydromorphone 1 Mg/1 Ml Inj) 2 mg IV Q3H PRN PRN Reason: Pain , Severe (7-10) Last Admin: 11/27/21 16:20 Dose: 2 mg Sodium Chloride (Nacl 0.9% 1000 Ml) 1,000 mls @ 125 mls/hr IV DIRECT [facility] Last Admin: 11/27/21 12:59 Dose: 125 mls/hr Vancomycin HCl (Vancomycin/Ns 1 Gm/250 Ml) 1 gm in 250 mls @ 250 mls/hr IV Q24H OLIVIA Ceftriaxone Sodium (Rocephin/Ns 2 Gm/100 Ml) 2 gm in 100 mls @ 200 mls/hr IV Q24H [facility]; Protocol Last Admin: 11/27/21 16:20 Dose: 200 mls/hr Insulin Human Lispro (Insulin Lispro 100 Unit/Ml) 0 unit SUB-Q ACHS [facility]; Protocol Last Admin: 11/27/21 12:59 Dose: 3 unit Losartan Potassium (Losartan 50 Mg Tab) 100 mg PO QDAY [facility] Magnesium Hydroxide (Magnesium Hydroxide (Mom) Oral Liqd Udc) 30 ml PO Q4H PRN PRN Reason: Constipation Metoprolol Succinate (Metoprolol Succinate Xl 50 Mg Tab) 50 mg PO QDAY [facility] Last Admin: 11/27/21 12:59 Dose: 50 mg Ondansetron HCl (Ondansetron 4 Mg/2 Ml Inj) 4 mg IV Q8H PRN PRN Reason: Nausea And Vomiting Pentoxifylline (Pentoxifylline Er 400 Mg Tab) 400 mg PO TID [facility] Sodium Chloride (Sodium Chloride 0.9% 10 Ml Flush Syringe) 10 ml IV BID [facility] Last Admin: 11/27/21 09:46 Dose: 10 ml Sodium Chloride (Sodium Chloride 0.9% 10 Ml Flush Syringe) 10 ml IV PRN PRN PRN Reason: LINE FLUSH Sodium Hypochlorite (Sodium Hypochlorite, Dakin's Full Strength (0.5%) 473 Ml Topical Soln) 1 applic TP Q12H PRN PRN Reason: Wound Care Last Admin: 11/27/21 16:24 Dose: 1 applicatio Tramadol HCl (Tramadol 50 Mg Tab) 50 mg PO TID PRN PRN Reason: pain Exam - Vital Signs Vital signs: Vital Signs Temp Pulse Resp BP Pulse Ox 98.2 F 112 H 20 147/80 99 11/26/21 18:50 11/26/21 18:50 11/26/21 18:50 11/26/21 18:50 11/26/21 18:50 - Physical Exam Narrative exam: General appearance: Present: no acute distress, well-nourished - EENT Eyes: Present: PERRL, EOM intact. Absent: scleral icterus ENT: hearing intact, clear oral mucosa, dentition normal - Neck Neck: Present: supple, normal ROM - Respiratory Respiratory effort: normal Respiratory: bilateral: CTA - Cardiovascular Rhythm: regular Heart Sounds: Present: S1 & S2. Absent: gallop, systolic murmur, diastolic murmur, rub, click - Extremities Extremities: no ischemia, pulses intact, pulses symmetrical, No edema, normal temperature, normal color, Full ROM Extremity abnormal: ulceration (Open ulcers on both lower extremities,left leg ulcer more prominent than the right, no obvious bleeding.,tender)), tenderness Peripheral Pulses: within normal limits - Abdominal General gastrointestinal: Present: soft, non-tender, non-distended, normal bowel sounds. Absent: mass - Musculoskeletal Musculoskeletal: strength equal bilaterally - Psychiatric Psychiatric: appropriate mood/affect, intact judgment & insight, memory intact, cooperative - Neurologic Neurologic: CNII-XII intact, no focal deficits, moves all extremities Results - Lab Results 11/27/21 10:43 11/27/21 06:16 Most recent lab results Calcium 8.1 mg/dL (8.4-10.2) L 11/27/21 06:16 Assessment and Plan Impression: * SYLVIA * hyponatremia * cellulitis * type 2 DM * Hyperkalemia * volume depletion * wound infection Plan: * gentle ivfs * k and Na better today * hold lasix * iv abx per primary team * surgery input noted * rec hold arb if k becomes refractory, s/p kayexalate * daily lytes and strict i/os
[2021-11-27] MEDS: amLODIPine 10 MG TAB PO SCH (18:06)
[2021-11-27] MEDS: PENTOXIFYLLINE ER 400 MG TAB PO SCH ×2 (18:07→22:01)
[2021-11-27] MEDS: VANCOMYCIN/NS 1 GM/250 ML 1 GM/250 ML BAG IV ONE (19:55)
[2021-11-27] MEDS: CALC GLUCONATE 1GM/NS 100 ML 1 GM/100 ML BAG IV ONE (19:56)
[2021-11-27] MEDS ORDERED: VANCOMYCIN/NS 1 GM/250 ML 1 GM/250 ML BAG IV SCH (23:00)
[2021-11-28 05:34] LABS: Basophils % (Auto) 0.2 % (0.0-1.8); Eosinophils % (Auto) 0.2 % (0.0-4.3); Hematocrit 28.2 % (30.3-42.9); Hemoglobin 9.4 gm/dl (10.1-14.3); Lymphocytes % (Auto) 15.8 % (13.4-35.0); Mean Corpuscular HGB Conc 33 % (30-34); Mean Corpuscular Volume 93 fl (79-97); Monocytes # (Auto) 0.8 K/mm3 (0.0-0.8); Platelet Count 373 K/mm3 (140-440); Red Blood Count 3.03 M/mm3 (3.65-5.03)
[2021-11-28 05:52] LABS: BUN/Creatinine Ratio 17; Blood Urea Nitrogen 15 mg/dL (7-17); Calcium 8.4 mg/dL (8.4-10.2); Hemolysis Index 0
[2021-11-28] MEDS: HEPARIN 5,000 UNIT/1 ML VIAL SUB-Q SCH (06:07)
[2021-11-28] MEDS: INSULIN LISPRO 100 UNIT/ML SUB-Q SCH (07:48)
[2021-11-28] MEDS: SODIUM CHLORIDE 0.9% 1000 ML 1,000 ML IV SCH (07:51)
[2021-11-28] MEDS: PENTOXIFYLLINE ER 400 MG TAB PO SCH (07:52)
[2021-11-28] MEDS ORDERED: POTASSIUM CHLORIDE ER 20 MEQ TAB PO ONE (08:06)
--- NOTE | 2021-11-28 08:17 | Discharge Summary ---
Providers - Providers Date of Admission: 11/26/21 22:32 Attending physician: JASON DIAZ MD 11/26/21 22:32 Consult to Dietitian/Nutrition [CONS] Routine Physician Instructions: Reason For Exam: Reason for Consult: Diet education 11/27/21 01:08 Consult to Physician [CONS] Routine Comment: Consulting Provider: EDDI BARRAGAN Physician Instructions: Reason For Exam: Renal insufficiency 11/27/21 08:04 Consult to Physician [CONS] Routine Comment: Consulting Provider: SHIN STERLING Physician Instructions: Reason For Exam: debridement 11/27/21 10:32 Consult to Physician [CONS] Routine Comment: Consulting Provider: SYDNEY TREADWELL Physician Instructions: Reason For Exam: ID abx recommendations 11/27/21 10:33 Consult to Case Management [CONS] Routine Services Needed at Discharge: Home Health Services Notified:: cm Additional Physician Instructions: Consult home health to continue dressing changes at home after discharge. 11/27/21 13:21 Physical Therapy Evaluation and Treat [CONS] Stat Comment: Reason For Exam: eval and treat Primary care physician: KALYANI SPARKS Hospitalization Condition: Fair Exam - Constitutional Vitals: Temp Pulse Resp BP Pulse Ox 98.1 F 85 18 130/59 99 11/28/21 04:50 11/28/21 04:50 11/28/21 04:50 11/28/21 04:50 11/28/21 04:50 Plan Care Plan Goals: Please follow up with your primary care provider. Resume home medications. We have prescribed an antibiotic for you called doxycycline, please take as instructed. We have arranged for home health to help you with wound care. Your dressings are supposed to be changed daily. Continue to dress your wounds as you have been in the past. Keep your legs elevated whenever you are able to. Please follow-up with Dr. Sterling in clinic next week. Follow up with: KALYANI SPARKS MD [Primary Care Provider] - 7 Days Prescriptions: Sodium Hypochlorite [Dakin's Full Strength] 1 applic TP Q12H PRN 30 Days #2 bottle PRN Reason: Wound Care Doxycycline Hyclate [Doxycycline Hyclate TAB] 100 mg PO Q12HR 6 Days #12 tab
[2021-11-28] MEDS: METOPROLOL SUCCINATE XL 50 MG TAB PO SCH (09:35)
[2021-11-28] MEDS: amLODIPine 10 MG TAB PO SCH (09:36)
[2021-11-28] MEDS ORDERED: LOSARTAN 50 MG TAB PO SCH (10:00)
--- NOTE | 2021-11-28 11:13 | Progress Note ---
Assessment and Plan Impression: * SYLVIA * hyponatremia * cellulitis * type 2 DM * Hyperkalemia * volume depletion * wound infection * hypokalemia Plan: * gentle ivfs * replete k and mag prn * hold lasix * abx per primary team * surgery input noted * continue arb at discharge * daily lytes and strict i/os * ok to dc after k and mag given Subjective Date of service: 11/28/21 Principal diagnosis: sylvia Interval history: labs and chart reviewed Objective - Exam Narrative Exam: General appearance: Present: no acute distress, well-nourished - EENT Eyes: Present: PERRL, EOM intact. Absent: scleral icterus ENT: hearing intact, clear oral mucosa, dentition normal - Neck Neck: Present: supple, normal ROM - Respiratory Respiratory effort: normal Respiratory: bilateral: CTA - Cardiovascular Rhythm: regular Heart Sounds: Present: S1 & S2. Absent: gallop, systolic murmur, diastolic murmur, rub, click - Extremities Extremities: no ischemia, pulses intact, pulses symmetrical, No edema, normal temperature, normal color, Full ROM Extremity abnormal: ulceration (Open ulcers on both lower extremities,left leg ulcer more prominent than the right, no obvious bleeding.,tender)), tenderness Peripheral Pulses: within normal limits - Abdominal General gastrointestinal: Present: soft, non-tender, non-distended, normal bowel sounds. Absent: mass - Musculoskeletal Musculoskeletal: strength equal bilaterally - Psychiatric Psychiatric: appropriate mood/affect, intact judgment & insight, memory intact, cooperative - Neurologic Neurologic: CNII-XII intact, no focal deficits, moves all extremities - Vital Signs Vital signs: Vital Signs - 12hr 11/28/21 11/28/21 11/28/21 04:50 09:35 10:10 Temperature 98.1 F Pulse Rate 85 85 Respiratory 18 20 20 Rate Blood Pressure 130/59 129/58 O2 Sat by Pulse 99 98 99 Oximetry - Lab 11/28/21 04:52 11/28/21 04:52 Most recent lab results Calcium 8.4 mg/dL (8.4-10.2) 11/28/21 04:52 Medications & Allergies - Medications Allergies/Adverse Reactions: Allergies No Known Allergies Allergy (Verified 11/26/21 18:42) Home Medications: Home Medications Medication Instructions Recorded Confirmed Last Taken Type ALPRAZolam [Xanax TAB] 0.25 mg PO Q6H PRN 11/27/21 11/27/21 Unknown History AtorvaSTATin [Lipitor] 40 mg PO QHS 11/27/21 11/27/21 Unknown History Furosemide [Lasix TAB] 20 mg PO QDAY 11/27/21 11/27/21 Unknown History Losartan [Cozaar] 100 mg PO QDAY 11/27/21 11/27/21 Unknown History Metformin HCl [metFORMIN] 1,000 mg PO BID 11/27/21 11/27/21 Unknown History Metoprolol Xl [Metoprolol 50 mg PO QDAY 11/27/21 11/27/21 Unknown History SUCCINATE ER TAB] Pentoxifylline 400 mg PO TID 11/27/21 11/27/21 Unknown History Potassium Chloride [K-Dur] 20 meq PO QDAY 11/27/21 11/27/21 Unknown History traMADoL [Ultram 50 MG tab] 50 mg PO TID PRN 11/27/21 11/27/21 Unknown History Doxycycline Hyclate [Doxycycline 100 mg PO Q12HR 6 Days #12 tab 11/28/21 Unknown Rx Hyclate TAB] Sodium Hypochlorite [Dakin's Full 1 applic TP Q12H PRN 30 Days #2 11/28/21 Unknown Rx Strength] bottle Active Medications: Generic Name Dose Route Start Last Admin Trade Name Freq PRN Reason Stop Dose Admin Acetaminophen 650 mg 11/26/21 22:32 Acetaminophen 325 Mg Tab PO Q4H PRN Pain MILD(1-3)/Fever >100.5/GREY Alprazolam 0.25 mg 11/27/21 11:55 Alprazolam 0.25 Mg Tab PO Q6H PRN Anxiety Amlodipine Besylate 10 mg 11/27/21 18:00 11/28/21 09:36 Amlodipine 10 Mg Tab PO 10 mg QDAY OLIVIA Administration Dextrose 0 ml 11/26/21 22:41 Dextrose 10% *Hypoglycemia IV DIRECT PRN Hypoglycemia Protocol Heparin Sodium (Porcine) 5,000 unit 11/27/21 06:00 11/28/21 06:07 Heparin 5,000 Unit/1 Ml Vial SUB-Q 5,000 unit Q8HR OLIVIA Administration Hydromorphone HCl 1 mg 11/26/21 22:32 11/27/21 12:59 Hydromorphone 1 Mg/1 Ml Inj IV 1 mg Q3H PRN Administration Pain, Moderate (4-6) Hydromorphone HCl 2 mg 11/26/21 22:32 11/27/21 16:20 Hydromorphone 1 Mg/1 Ml Inj IV 2 mg Q3H PRN Administration Pain , Severe (7-10) Sodium Chloride 1,000 mls @ 125 mls/hr 11/26/21 22:45 11/28/21 07:51 Nacl 0.9% 1000 Ml IV 125 mls/hr DIRECT OLIVIA Administration Vancomycin HCl 1 gm in 250 mls @ 250 mls/hr 11/27/21 23:00 11/27/21 22:01 Vancomycin/Ns 1 Gm/250 Ml IV 250 mls/hr Q24H OLIVIA Administration Ceftriaxone Sodium 2 gm in 100 mls @ 200 mls/hr 11/27/21 14:00 11/27/21 16:20 Rocephin/Ns 2 Gm/100 Ml IV 200 mls/hr Q24H OLIVIA Administration Protocol Insulin Human Lispro 0 unit 11/27/21 07:30 11/28/21 07:48 Insulin Lispro 100 Unit/Ml SUB-Q Not Given ACHS OLIVIA Protocol Metoprolol Succinate 50 mg 11/27/21 12:00 11/28/21 09:35 Metoprolol Succinate Xl 50 Mg Tab PO 50 mg QDAY OLIVIA Administration Ondansetron HCl 4 mg 11/26/21 22:32 Ondansetron 4 Mg/2 Ml Inj IV Q8H PRN Nausea And Vomiting Pentoxifylline 400 mg 11/27/21 14:00 11/28/21 07:52 Pentoxifylline Er 400 Mg Tab PO 400 mg TID OLIVIA Administration Sodium Chloride 10 ml 11/27/21 10:00 11/28/21 09:36 Sodium Chloride 0.9% 10 Ml Flush Syringe IV 10 ml BID OLIVIA Administration Sodium Chloride 10 ml 11/26/21 22:32 Sodium Chloride 0.9% 10 Ml Flush Syringe IV PRN PRN LINE FLUSH Sodium Hypochlorite 1 applic 11/27/21 11:00 11/27/21 16:24 Sodium Hypochlorite, Dakin's Full Strength (0.5%) 473 Ml Topical Soln TP 1 applicatio Q12H PRN Administration Wound Care Tramadol HCl 50 mg 03/04/22 11:55 Tramadol 50 Mg Tab PO TID PRN pain
[2021-11-28] MEDS ORDERED: MAGNESIUM SULFATE 2 GM/50 ML BAG IV ONE (11:15)
[2021-11-28 12:04] VITALS: BP 124/55
== END 2021-11-28 12:47 | disposition home or self-care (01) ==
LOC: ED 17:40 → 3A 22:32 → INTOOBSV 22:32
PROVIDERS: ADMIT Internal Medicine Geriatric Medicine; ATTEND Student in an Organized Health Care Education/Training Program
DX: I83.009 Varicose veins of unspecified lower extremity with ulcer of unspecified site (principal); A41.9 Sepsis, unspecified organism; L97.929 Non-pressure chronic ulcer of unspecified part of left lower leg with unspecified severity; E86.9 Volume depletion, unspecified; E11.9 Type 2 diabetes mellitus without complications; E87.5 Hyperkalemia; E87.1 Hypo-osmolality and hyponatremia; D72.829 Elevated white blood cell count, unspecified; T81.49XA Infection following a procedure, other surgical site, initial encounter; N17.9 Acute kidney failure, unspecified; E78.5 Hyperlipidemia, unspecified; N28.9 Disorder of kidney and ureter, unspecified; Z87.891 Personal history of nicotine dependence; Z79.899 Other long term (current) drug therapy; Z98.890 Other specified postprocedural states
CPT/HCPCS: 36415; 80048; 80053; 82140; 82962; 83735; 85025; 85027; 87040; 96361; 96365; 96366; 96367; 96368; 96372; 96375; 96376; 99284; G0378; J0610; J0692; J0696; J1170; J1644; J2405; J2543; J3010; J3370; J7030; 85007; Q0162; Q9967; J1815

== ENCOUNTER 2022-06-18 16:16 | Inpatient (IN) | payer MEDICARE ==
--- NOTE | 2022-06-18 17:43 | Emergency Department Report ---
ED Altered Mental Status HPI - General Chief Complaint: Hypoglycemia Stated Complaint: HYPOGLYCEMIA Time Seen by Provider: 06/18/22 17:22 Source: patient, EMS Mode of arrival: Stretcher Limitations: No Limitations - History of Present Illness Initial Comments: 72-year-old female with history of diabetes and hypertension presents to the ED (via EMS) for hypoglycemia prior to arrival. Patient was found altered by her family, who called EMS. Patient was given D50 and juice, and her mental status improved. Second blood glucose by EMS was 115. Patient is alert and oriented x4, and states that she just passed out, but denies any prodromal symptoms. Patient states that she has had the same episode before secondary to hypoglycemia. Patient cannot remember the last time she ate, but did take her diabetes medications this morning. Patient states that she takes insulin and oral medications for diabetes. Patient denies illness in the last few days. Denies pain, cough, fever, chills or any other symptoms. Aggravating factors does report feeling better after she drank juice. Patient does not want to eat anymore, now. Patient was recently admitted to an outside hospital and was discharged home 2 weeks ago for diabetic leg wounds. Patient is complaining of moderate bilateral lower extremity pain. - Related Data Home Medications Medication Instructions Recorded Confirmed Last Taken ALPRAZolam [Xanax TAB] 0.25 mg PO Q6H PRN 11/27/21 11/27/21 Unknown AtorvaSTATin [Lipitor] 40 mg PO QHS 11/27/21 11/27/21 Unknown Furosemide [Lasix TAB] 20 mg PO QDAY 11/27/21 11/27/21 Unknown Losartan [Cozaar] 100 mg PO QDAY 11/27/21 11/27/21 Unknown Metformin HCl [metFORMIN] 1,000 mg PO BID 11/27/21 11/27/21 Unknown Metoprolol Xl [Metoprolol 50 mg PO QDAY 11/27/21 11/27/21 Unknown SUCCINATE ER TAB] Pentoxifylline 400 mg PO TID 11/27/21 11/27/21 Unknown Potassium Chloride [K-Dur] 20 meq PO QDAY 11/27/21 11/27/21 Unknown traMADoL [Ultram 50 MG tab] 50 mg PO TID PRN 11/27/21 11/27/21 Unknown Previous Rx's Medication Instructions Recorded Last Taken Type Doxycycline Hyclate [Doxycycline 100 mg PO Q12HR 6 Days #12 tab 11/28/21 Unknown Rx Hyclate TAB] Sodium Hypochlorite [Dakin's Full 1 applic TP Q12H PRN 30 Days #2 11/28/21 Unknown Rx Strength] bottle Allergies Allergy/AdvReac Type Severity Reaction Status Date / Time No Known Allergies Allergy Verified 11/26/21 18:42 ED Review of Systems ROS: Stated complaint: HYPOGLYCEMIA Other details as noted in HPI Comment: All other systems reviewed and negative Constitutional: denies: chills, fever, weakness Eyes: denies: eye pain, eye discharge, vision change ENT: denies: ear pain, throat pain Respiratory: denies: cough, shortness of breath, wheezing Cardiovascular: denies: chest pain, palpitations Endocrine: no symptoms reported Gastrointestinal: denies: abdominal pain, nausea, diarrhea Genitourinary: denies: urgency, dysuria, discharge Musculoskeletal: denies: back pain, joint swelling, arthralgia Skin: denies: rash, lesions Neurological: other (altered mental status). denies: headache, weakness, pa resthesias Psychiatric: denies: anxiety, depression Hematological/Lymphatic: denies: easy bleeding, easy bruising ED Past Medical Hx - Past Medical History Hx Diabetes: Yes Hx HIV: Yes Additional medical history: DIABETIC ULCERS/ HIGH CHLOESTROL - Surgical History Hx Breast Surgery: Yes (Lumpectomy) Additional Surgical History: Lower extremity chronic ulcer debridements - Social History Smoking Status: Former Smoker - Medications Home Medications: Home Medications Medication Instructions Recorded Confirmed Last Taken Type ALPRAZolam [Xanax TAB] 0.25 mg PO Q6H PRN 11/27/21 11/27/21 Unknown History AtorvaSTATin [Lipitor] 40 mg PO QHS 11/27/21 11/27/21 Unknown History Furosemide [Lasix TAB] 20 mg PO QDAY 11/27/21 11/27/21 Unknown History Losartan [Cozaar] 100 mg PO QDAY 11/27/21 11/27/21 Unknown History Metformin HCl [metFORMIN] 1,000 mg PO BID 11/27/21 11/27/21 Unknown History Metoprolol Xl [Metoprolol 50 mg PO QDAY 11/27/21 11/27/21 Unknown History SUCCINATE ER TAB] Pentoxifylline 400 mg PO TID 11/27/21 11/27/21 Unknown History Potassium Chloride [K-Dur] 20 meq PO QDAY 11/27/21 11/27/21 Unknown History traMADoL [Ultram 50 MG tab] 50 mg PO TID PRN 11/27/21 11/27/21 Unknown History Doxycycline Hyclate [Doxycycline 100 mg PO Q12HR 6 Days #12 tab 11/28/21 Unknown Rx Hyclate TAB] Sodium Hypochlorite [Dakin's Full 1 applic TP Q12H PRN 30 Days #2 11/28/21 Unknown Rx Strength] bottle ED Physical Exam - General Limitations: No Limitations General appearance: alert, in no apparent distress - Head Head exam: Present: atraumatic, normocephalic - Eye Eye exam: Present: normal appearance, PERRL, EOMI - ENT ENT exam: Present: mucous membranes moist - Neck Neck exam: Present: normal inspection - Respiratory Respiratory exam: Present: normal lung sounds bilaterally. Absent: respiratory distress, wheezes - Cardiovascular Cardiovascular Exam: Present: regular rate, normal rhythm. Absent: systolic murmur, diastolic murmur, rubs, gallop - GI/Abdominal GI/Abdominal exam: Present: soft, normal bowel sounds. Absent: distended, tenderness - Extremities Exam Extremities exam: Present: normal inspection, tenderness (Bilateral lower extremity tenderness) - Back Exam Back exam: Present: normal inspection - Neurological Exam Neurological exam: Present: alert, oriented X3 - Psychiatric Psychiatric exam: Present: normal affect, normal mood - Skin Skin exam: Present: warm, dry, intact, normal color. Absent: rash ED Course Vital Signs 06/18/22 06/18/22 16:53 18:11 Temperature 98.4 F 97.8 F Pulse Rate 86 68 Respiratory 18 20 Rate Blood Pressure 120/52 Blood Pressure 154/86 135/55 [Left] O2 Sat by Pulse 98 95 Oximetry - Lab Data Result diagrams: 06/18/22 18:58 06/18/22 18:58 Lab Results 06/18/22 06/18/22 Range/Units 18:58 18:58 WBC 12.5 H (4.5-11.0) K/mm3 RBC 4.20 (3.65-5.03) M/mm3 Hgb 11.2 (10.1-14.3) gm/dl Hct 35.9 (30.3-42.9) % MCV 85 (79-97) fl MCH 27 L (28-32) pg MCHC 31 (30-34) % RDW 14.3 (13.2-15.2) % Plt Count 272 (140-440) K/mm3 Lymph % (Auto) 11.3 L (13.4-35.0) % [place] % (Auto) 3.9 (0.0-7.3) % Eos % (Auto) 0.0 (0.0-4.3) % Baso % (Auto) 0.2 (0.0-1.8) % Lymph # (Auto) 1.4 (1.2-5.4) K/mm3 [place] # (Auto) 0.5 (0.0-0.8) K/mm3 Eos # (Auto) 0.0 (0.0-0.4) K/mm3 Baso # (Auto) 0.0 (0.0-0.1) K/mm3 Seg Neutrophils % 84.6 H (40.0-70.0) % Seg Neutrophils # 10.6 H (1.8-7.7) K/mm3 Sodium 142 (137-145) mmol/L Chloride 109.4 H (98-107) mmol/L Carbon Dioxide 12 L (22-30) mmol/L Anion Gap 24 mmol/L BUN 42 H (7-17) mg/dL Creatinine 2.8 H (0.6-1.2) mg/dL Estimated GFR 20 ml/min BUN/Creatinine Ratio 15 % Glucose 86 (65-100) mg/dL Calcium 8.7 (8.4-10.2) mg/dL Total Bilirubin < 0.20 (0.1-1.2) mg/dL AST 29 (5-40) units/L ALT 9 (7-56) units/L Alkaline Phosphatase 92 (35-129) units/L Troponin T 0.070 H (0.00-0.029) ng/mL Total Protein 6.5 (6.3-8.2) g/dL Albumin 3.8 L (3.9-5) g/dL Albumin/Globulin Ratio 1.4 % Triglycerides 80 (2-149) mg/dL Cholesterol 151 (50-199) mg/dL LDL Cholesterol Direct 66 (50-130) mg/dL HDL Cholesterol 73 H (40-59) mg/dL Cholesterol/HDL Ratio 2.06 % - Medical Decision Making 72-year-old female brought in by EMS for hypoglycemia and altered mental status. Initial vital signs are unremarkable. Physical exam remarkable. Patient is alert and fully oriented, upon initial evaluation. Blood work was concerning for renal insufficiency (BUN 42, creatinine 2.8) and a troponin that is elevated at 0.070. BUN and creatinine were within normal limits in November 2021. With that, and the elevated troponin, patient will be admitted to the hospital. Patient verbalizes understanding diagnosis and disposition, and is amenable to it. - Differential Diagnosis Infection, noncompliance with medication, myocardial infarction Critical care attestation.: If time is entered above; I have spent that time in minutes in the direct care of this critically ill patient, excluding procedure time. ED Disposition Clinical Impression: Hypoglycemia, Acute renal insufficiency, Elevated troponin Disposition: ADMITTED INPATIENT Is pt being admited?: Yes Does the pt Need Aspirin: No Condition: Stable Instructions: Hypoglycemia
[2022-06-18 19:51] LABS: Basophils % (Auto) 0.2 % (0.0-1.8); Hematocrit 35.9 % (30.3-42.9); Hemoglobin 11.2 gm/dl (10.1-14.3); Lymphocytes # (Auto) 1.4 K/mm3 (1.2-5.4); Lymphocytes % (Auto) 11.3 % (13.4-35.0); Mean Corpuscular HGB Conc 31 % (30-34); Mean Corpuscular Volume 85 fl (79-97); Monocytes # (Auto) 0.5 K/mm3 (0.0-0.8); Monocytes % (Auto) 3.9 % (0.0-7.3); Platelet Count 272 K/mm3 (140-440); Red Cell Distribution Width 14.3 % (13.2-15.2)
[2022-06-18 20:06] LABS: Alanine Aminotransferase 9 units/L (7-56); Albumin 3.8 g/dL (3.9-5); BUN/Creatinine Ratio 15; Blood Urea Nitrogen 42 mg/dL (7-17); Calcium 8.7 mg/dL (8.4-10.2); Hemolysis Index 10
[2022-06-18] MEDS ORDERED: traMADol 50 MG TAB PO ONE (20:10)
[2022-06-18 20:24] LABS: Chol/HDL Ratio 2.06 %; HDL Cholesterol 73 mg/dL (40-59); LDL Cholesterol,Direct 66 mg/dL (50-130)
--- NOTE | 2022-06-18 20:53 | XRay Report ---
CHEST 1 VIEW INDICATION: elevated troponin. COMPARISON: None FINDINGS: SUPPORT DEVICES: None. HEART: Within normal limits. LUNGS/PLEURA: No acute air space or interstitial disease. ADDITIONAL FINDINGS: None. IMPRESSION: 1. No acute findings. Signer Name: Peewee Castañeda MD Signed: 06/18/2022 8:49 PM Workstation Name: [id number]
[2022-06-18] MEDS ORDERED: SODIUM BICARB 8.4% 50 MEQ/50 ML SYRINGE IV ONE (21:00)
[2022-06-18 22:00] LABS: Calcium 8.5 mg/dL (8.4-10.2)
[2022-06-18] MEDS ORDERED: ACETAMINOPHEN 325 MG TAB PO PRN (22:34)
[2022-06-18] MEDS ORDERED: MORPHINE 4 MG/1 ML INJ IV PRN (22:34)
[2022-06-18] MEDS ORDERED: NITROGLYCERIN 0.4 MG TAB SUBL SL PRN (22:34)
[2022-06-18] MEDS ORDERED: ALPRAZolam 0.25 MG TAB PO PRN (22:38)
--- NOTE | 2022-06-18 22:47 | History and Physical Report ---
History of Present Illness Date of examination: 06/18/22 Date of admission: 06/18/22 Chief complaint: Hypoglycemia History of present illness: 72-year-old female with history of diabetes and hypertension presents to the ED (via EMS) for hypoglycemia prior to arrival. Patient was found altered by her family, who called EMS. Patient was given D50 and juice, and her mental status improved. Second blood glucose by EMS was 115. Patient is alert and oriented x4, and states that she just passed out, but denies any prodromal symptoms. Patient states that she has had the same episode before secondary to hypoglycemia. Patient cannot remember the last time she ate, but did take her diabetes medications this morning. Patient states that she takes insulin and oral medications for diabetes. Patient denies illness in the last few days. Denies pain, cough, fever, chills or any other symptoms. Aggravating factors does report feeling better after she drank juice. Patient does not want to eat anymore, now. Patient was recently admitted to an outside hospital and was discharged home 2 weeks ago for diabetic leg wounds. Patient is complaining of moderate bilateral lower extremity pain. In the ER patient is found to have potassium of 6.2, glucose of 86, BUN of 42 and creatinine 2.8 also troponin is 0.070. So we will put the patient on IV fluid hypoglycemia protocol, will give patient sodium bicarb. Will consult cardiology and nephrology for evaluation Past History Past Medical History: diabetes, HIV/AIDS, other (DIABETIC ULCERS/ HIGH CHLOESTROL) Past Surgical History: Other (Lower extremity chronic ulcer debridements. Lumpectomy) Social history: other (Former smoker) Family history: hypertension Medications and Allergies Allergies Allergy/AdvReac Type Severity Reaction Status Date / Time No Known Allergies Allergy Verified 11/26/21 18:42 Home Medications Medication Instructions Recorded Confirmed Last Taken Type ALPRAZolam [Xanax TAB] 0.25 mg PO Q6H PRN 11/27/21 11/27/21 Unknown History AtorvaSTATin [Lipitor] 40 mg PO QHS 11/27/21 11/27/21 Unknown History Furosemide [Lasix TAB] 20 mg PO QDAY 11/27/21 11/27/21 Unknown History Losartan [Cozaar] 100 mg PO QDAY 11/27/21 11/27/21 Unknown History Metformin HCl [metFORMIN] 1,000 mg PO BID 11/27/21 11/27/21 Unknown History Metoprolol Xl [Metoprolol 50 mg PO QDAY 11/27/21 11/27/21 Unknown History SUCCINATE ER TAB] Pentoxifylline 400 mg PO TID 11/27/21 11/27/21 Unknown History Potassium Chloride [K-Dur] 20 meq PO QDAY 11/27/21 11/27/21 Unknown History traMADoL [Ultram 50 MG tab] 50 mg PO TID PRN 11/27/21 11/27/21 Unknown History Doxycycline Hyclate [Doxycycline 100 mg PO Q12HR 6 Days #12 tab 11/28/21 Unknown Rx Hyclate TAB] Sodium Hypochlorite [Dakin's Full 1 applic TP Q12H PRN 30 Days #2 11/28/21 Unknown Rx Strength] bottle Active Meds: Active Medications Acetaminophen (Acetaminophen 325 Mg Tab) 650 mg PO Q6H PRN PRN Reason: Pain, Mild (1-3) Alprazolam (Alprazolam 0.25 Mg Tab) 0.25 mg PO Q6H PRN PRN Reason: Anxiety Aspirin (Aspirin Ec 325 Mg Tab) 325 mg PO QDAY [facility] Atorvastatin Calcium (Atorvastatin 40 Mg Tab) 40 mg PO QHS [facility] Dextrose (Dextrose 50% In Water (25gm) 50 Ml Syringe) 50 ml IV Q30MIN PRN; Protocol PRN Reason: Hypoglycemia Furosemide (Furosemide 20 Mg Tab) 20 mg PO QDAY [facility] Heparin Sodium (Porcine) (Heparin 5,000 Unit/1 Ml Vial) 5,000 unit SUB-Q Q8HR [facility] Insulin Human Lispro (Insulin Lispro 100 Unit/Ml) 0 unit SUB-Q Q6HR [facility]; Protocol Metoprolol Succinate (Metoprolol Succinate Xl 50 Mg Tab) 50 mg PO QDAY [facility] Morphine Sulfate (Morphine 4 Mg/1 Ml Inj) 2 mg IV Q5MIN PRN PRN Reason: Chest Pain unrelieved by NTG Nitroglycerin (Nitroglycerin 0.4 Mg Tab Subl) 0.4 mg SL Q5M PRN PRN Reason: Chest Pain Pantoprazole Sodium (Pantoprazole 40 Mg Tab) 40 mg PO QDAY [facility] Pentoxifylline (Pentoxifylline Er 400 Mg Tab) 400 mg PO TID [facility] Sodium Chloride (Sodium Chloride 0.9% 10 Ml Flush Syringe) 10 ml IV PRN PRN PRN Reason: LINE FLUSH Tramadol HCl (Tramadol 50 Mg Tab) 50 mg PO Q6H PRN PRN Reason: Pain, Moderate (4-6) Review of Systems All systems: negative Constitutional: fatigue, weakness, other (Hypoglycemia) Exam - Constitutional Vitals: Temp Pulse Resp BP Pulse Ox 98.8 F 74 18 120/41 100 06/18/22 20:35 06/18/22 20:35 06/18/22 20:38 06/18/22 20:35 06/18/22 20:35 General appearance: Present: no acute distress, well-nourished - EENT Eyes: Present: PERRL ENT: hearing intact, clear oral mucosa - Neck Neck: Present: supple, normal ROM - Respiratory Respiratory effort: normal Respiratory: bilateral: CTA - Cardiovascular Heart Sounds: Present: S1 & S2. Absent: rub, click - Extremities Extremities: pulses symmetrical, No edema Peripheral Pulses: within normal limits - Abdominal General gastrointestinal: Present: soft, non-tender, non-distended, normal bowel sounds Female genitourinary: Present: normal - Integumentary Integumentary: Present: clear, warm, dry - Musculoskeletal Musculoskeletal: gait normal, strength equal bilaterally - Psychiatric Psychiatric: appropriate mood/affect, intact judgment & insight - Neurologic Neurologic: CNII-XII intact, moves all extremities HEART Score - HEART Score Troponin: Troponin T 0.070 ng/mL (0.00-0.029) H 06/18/22 18:58 Results - Labs CBC & Chem 7: 06/18/22 18:58 06/18/22 21:06 Labs: Laboratory Last Values WBC 12.5 K/mm3 (4.5-11.0) H 06/18/22 18:58 RBC 4.20 M/mm3 (3.65-5.03) 06/18/22 18:58 Hgb 11.2 gm/dl (10.1-14.3) 06/18/22 18:58 Hct 35.9 % (30.3-42.9) 06/18/22 18:58 MCV 85 fl (79-97) 06/18/22 18:58 MCH 27 pg (28-32) L 06/18/22 18:58 MCHC 31 % (30-34) 06/18/22 18:58 RDW 14.3 % (13.2-15.2) 06/18/22 18:58 Plt Count 272 K/mm3 (140-440) 06/18/22 18:58 Lymph % (Auto) 11.3 % (13.4-35.0) L 06/18/22 18:58 [place] % (Auto) 3.9 % (0.0-7.3) 06/18/22 18:58 Eos % (Auto) 0.0 % (0.0-4.3) 06/18/22 18:58 Baso % (Auto) 0.2 % (0.0-1.8) 06/18/22 18:58 Lymph # (Auto) 1.4 K/mm3 (1.2-5.4) 06/18/22 18:58 [place] # (Auto) 0.5 K/mm3 (0.0-0.8) 06/18/22 18:58 Eos # (Auto) 0.0 K/mm3 (0.0-0.4) 06/18/22 18:58 Baso # (Auto) 0.0 K/mm3 (0.0-0.1) 06/18/22 18:58 Seg Neutrophils % 84.6 % (40.0-70.0) H 06/18/22 18:58 Seg Neutrophils # 10.6 K/mm3 (1.8-7.7) H 06/18/22 18:58 Sodium 138 mmol/L (137-145) 06/18/22 21:06 Potassium 5.7 mmol/L (3.6-5.0) H 06/18/22 21:06 Chloride 108.3 mmol/L (98-107) H 06/18/22 21:06 Carbon Dioxide 15 mmol/L (22-30) L 06/18/22 21:06 Anion Gap 20 mmol/L 06/18/22 21:06 BUN 39 mg/dL (7-17) H 06/18/22 21:06 Creatinine 2.5 mg/dL (0.6-1.2) H 06/18/22 21:06 Estimated GFR 23 ml/min 06/18/22 21:06 BUN/Creatinine Ratio 16 % 06/18/22 21:06 Glucose 54 mg/dL (65-100) L 06/18/22 21:06 POC Glucose 84 mg/dL (70-105) 06/18/22 18:04 Calcium 8.5 mg/dL (8.4-10.2) 06/18/22 21:06 Total Bilirubin < 0.20 mg/dL (0.1-1.2) 06/18/22 18:58 AST 29 units/L (5-40) 06/18/22 18:58 ALT 9 units/L (7-56) 06/18/22 18:58 Alkaline Phosphatase 92 units/L (35-129) 06/18/22 18:58 Troponin T 0.070 ng/mL (0.00-0.029) H 06/18/22 18:58 Total Protein 6.5 g/dL (6.3-8.2) 06/18/22 18:58 Albumin 3.8 g/dL (3.9-5) L 06/18/22 18:58 Albumin/Globulin Ratio 1.4 % 06/18/22 18:58 Triglycerides 80 mg/dL (2-149) 06/18/22 18:58 Cholesterol 151 mg/dL (50-199) 06/18/22 18:58 LDL Cholesterol Direct 66 mg/dL (50-130) 06/18/22 18:58 HDL Cholesterol 73 mg/dL (40-59) H 06/18/22 18:58 Cholesterol/HDL Ratio 2.06 % 06/18/22 18:58 - Imaging and Cardiology Chest x-ray: report reviewed Assessment and Plan VTE prophylaxis?: Chemical Plan of care discussed with patient/family: Yes - Patient Problems (1) SYLVIA (acute kidney injury) Status: Acute Plan to address problem: Admit the patient to the medical telemetry. D5 half-normal saline at the rate of 100 cc/h. Avoid nephrotoxic drug. Renally dose medication. Nephrology evaluation. Recheck BMP in the morning (2) Elevated troponin Status: Acute Plan to address problem: Aspirin 325 mg p.o. daily. Lipitor 40 mg p.o. daily. Serial cardiac enzymes. Echocardiogram. Cardiology evaluation (3) Hyperkalemia Status: Acute Plan to address problem: Patient already get D50, sodium bicarb and calcium gluconate. Repeat potassium is 5.7. Kayexalate 30 g p.o. x1 dose. We will monitor the patient closely. Recheck BMP in the morning. Nephrology evaluation (4) Hypoglycemia Status: Acute Plan to address problem: D5 half-normal saline at the rate of 100 cc/h. We will monitor the glucose closely. Recheck BMP in the morning. Diabetic education (5) Wound infection Status: Acute Plan to address problem: Stable. Continue wound care and home medication (6) DVT prophylaxis Status: Acute Plan to address problem: Heparin 5000 units subcu every 8 hours for DVT prophylaxis. Pepcid 20 mg IV every 12 hours for GI prophylaxis. Patient is a full code
[2022-06-18] MEDS ORDERED: SODIUM POLYSTYRENE 15 GM/60 ML ORAL LIQD PO ONE (22:49)
[2022-06-19] MEDS ORDERED: DEXTROSE 50% IN WATER (25GM) 50 ML SYRINGE IV ONE (01:45)
[2022-06-19] MEDS: D5W/0.45% NACL 1,000 ML IV SCH ×2 (01:50→15:43)
[2022-06-19] MEDS: INSULIN LISPRO 100 UNIT/ML SUB-Q SCH ×3 (01:56→12:35)
[2022-06-19 05:01] LABS: Hematocrit 33.9 % (30.3-42.9); Hemoglobin 10.9 gm/dl (10.1-14.3); Mean Corpuscular HGB Conc 32 % (30-34); Mean Corpuscular Volume 84 fl (79-97); Platelet Count 289 K/mm3 (140-440); Red Blood Count 4.03 M/mm3 (3.65-5.03); Red Cell Distribution Width 14.4 % (13.2-15.2)
[2022-06-19 05:07] LABS: Basophils % (Auto) 0.2 % (0.0-1.8); Eosinophils % (Auto) 0.1 % (0.0-4.3); Lymphocytes # (Auto) 1.7 K/mm3 (1.2-5.4); Lymphocytes % (Auto) 16.1 % (13.4-35.0); Monocytes # (Auto) 0.7 K/mm3 (0.0-0.8); Monocytes % (Auto) 6.2 % (0.0-7.3)
[2022-06-19 05:12] LABS: Calcium 8.9 mg/dL (8.4-10.2)
[2022-06-19] MEDS ORDERED: HEPARIN 5,000 UNIT/1 ML VIAL SUB-Q SCH (06:00)
--- NOTE | 2022-06-19 08:17 | Consultation ---
History of Present Illness Consult date: 06/19/22 Requesting physician: LARRY SCHMITT History of present illness: Pt is a 72-year-old female who presented with complaints of generalized weakness after falling at home. She states she stood up out of bed and subsequently fell. She claims she could not get up off the floor because she was too weak. Her brother found her and brought her to [facility] for further evaluation. She was hypoglycemic prior to arrival per ER documentation. Pt denies syncope or LOC. No dizziness, lightheadedness, or palpitations. Of note, pt reports decreased PO intake at home for 3 weeks or more. She has a documented hx of major depressive disorder and some concern for failure to thrive per outpatient Psych records. Cardiology has been consulted for elevated troponins (0.070 -> 0.080). Pt denies chest pain or SOB. She is previously unknown to our practice and states she has never been seen by a [facility]. Past History Past Medical History: diabetes, hypertension, other (PAD, chronic BLE ulcers, RLE DVT) Past Surgical History: Other (BLE wound debridements). denies: valve replacement, CABG, PTCA Social history: smoking (former ~ 15 yrs ago). denies: alcohol abuse Family history: cancer Medications and Allergies Allergies Allergy/AdvReac Type Severity Reaction Status Date / Time No Known Allergies Allergy Verified 11/26/21 18:42 Home Medications Medication Instructions Recorded Confirmed Last Taken Type ALPRAZolam [Xanax TAB] 0.25 mg PO Q6H PRN 11/27/21 11/27/21 Unknown History AtorvaSTATin [Lipitor] 40 mg PO QHS 11/27/21 11/27/21 Unknown History Furosemide [Lasix TAB] 20 mg PO QDAY 11/27/21 11/27/21 Unknown History Losartan [Cozaar] 100 mg PO QDAY 11/27/21 11/27/21 Unknown History Metformin HCl [metFORMIN] 1,000 mg PO BID 11/27/21 11/27/21 Unknown History Metoprolol Xl [Metoprolol 50 mg PO QDAY 11/27/21 11/27/21 Unknown History SUCCINATE ER TAB] Pentoxifylline 400 mg PO TID 11/27/21 11/27/21 Unknown History Potassium Chloride [K-Dur] 20 meq PO QDAY 11/27/21 11/27/21 Unknown History traMADoL [Ultram 50 MG tab] 50 mg PO TID PRN 11/27/21 11/27/21 Unknown History Doxycycline Hyclate [Doxycycline 100 mg PO Q12HR 6 Days #12 tab 11/28/21 Unknown Rx Hyclate TAB] Sodium Hypochlorite [Dakin's Full 1 applic TP Q12H PRN 30 Days #2 11/28/21 Unknown Rx Strength] bottle Active Meds: Active Medications Acetaminophen (Acetaminophen 325 Mg Tab) 650 mg PO Q6H PRN PRN Reason: Pain, Mild (1-3) Alprazolam (Alprazolam 0.25 Mg Tab) 0.25 mg PO Q6H PRN PRN Reason: Anxiety Aspirin (Aspirin Ec 325 Mg Tab) 325 mg PO QDAY [facility] Atorvastatin Calcium (Atorvastatin 40 Mg Tab) 40 mg PO QHS [facility] Dextrose (Dextrose 50% In Water (25gm) 50 Ml Syringe) 50 ml IV Q30MIN PRN; Protocol PRN Reason: Hypoglycemia Furosemide (Furosemide 20 Mg Tab) 20 mg PO QDAY [facility] Heparin Sodium (Porcine) (Heparin 5,000 Unit/1 Ml Vial) 5,000 unit SUB-Q Q8HR [facility] Dextrose/Sodium Chloride (D5/0.45ns) 1,000 mls @ 100 mls/hr IV DIRECT [facility] Last Admin: 06/19/22 01:50 Dose: 100 mls/hr Insulin Human Lispro (Insulin Lispro 100 Unit/Ml) 0 unit SUB-Q Q6HR [facility]; Protocol Last Admin: 06/19/22 01:56 Dose: Not Given Metoprolol Succinate (Metoprolol Succinate Xl 50 Mg Tab) 50 mg PO QDAY [facility] Morphine Sulfate (Morphine 4 Mg/1 Ml Inj) 2 mg IV Q5MIN PRN PRN Reason: Chest Pain unrelieved by NTG Nitroglycerin (Nitroglycerin 0.4 Mg Tab Subl) 0.4 mg SL Q5M PRN PRN Reason: Chest Pain Pantoprazole Sodium (Pantoprazole 40 Mg Tab) 40 mg PO QDAY [facility] Pentoxifylline (Pentoxifylline Er 400 Mg Tab) 400 mg PO TID [facility] Sodium Chloride (Sodium Chloride 0.9% 10 Ml Flush Syringe) 10 ml IV PRN PRN PRN Reason: LINE FLUSH Tramadol HCl (Tramadol 50 Mg Tab) 50 mg PO Q6H PRN PRN Reason: Pain, Moderate (4-6) Review of Systems Constitutional: no fever, no chills Ears, nose, mouth and throat: no nasal congestion, no sore throat Cardiovascular: no chest pain, no palpitations, no edema, no syncope, no lightheadedness, no shortness of breath Respiratory: no cough, no shortness of breath Gastrointestinal: no abdominal pain, no nausea, no vomiting Genitourinary Female: no dysuria Musculoskeletal: other (BLE pain) Integumentary: wounds (chronic BLE), no rash Neurological: weakness, no numbness, no tingling, no seizures, no syncope, no vertigo, no headaches Endocrine: no cold intolerance, no heat intolerance Hematologic/Lymphatic: no easy bruising, no easy bleeding Allergic/Immunologic: no anaphylaxis Physical Examination Vital Signs Temp Pulse Resp BP Pulse Ox 98.4 F 86 18 154/86 98 06/18/22 16:53 06/18/22 16:53 06/18/22 16:53 06/18/22 16:53 06/18/22 16:53 General appearance: no acute distress HEENT: Positive: EOMI, Normocephaly Neck: Negative: JVD/HJR Cardiac: Positive: Reg Rate and Rhythm, S1/S2. Negative: Audible Murmur Lungs: Positive: clear to auscultation Neuro: Positive: Grossly Intact Abdomen: Positive: Soft. Negative: Tender Skin: Positive: Wound (chronic BLE (dressings in situ)). Negative: Rash Extremities: Present: upper extr. pulses, warm Results 06/19/22 04:20 06/19/22 04:20 Cardiac Enzymes 06/18/22 Range/Units 18:58 AST 29 (5-40) units/L Lipids 06/18/22 Range/Units 18:58 Triglycerides 80 (2-149) mg/dL Cholesterol 151 (50-199) mg/dL HDL Cholesterol 73 H (40-59) mg/dL Cholesterol/HDL Ratio 2.06 % CBC 06/18/22 06/19/22 Range/Units 18:58 04:20 WBC 12.5 H 11.0 (4.5-11.0) K/mm3 RBC 4.20 4.03 (3.65-5.03) M/mm3 Hgb 11.2 10.9 (10.1-14.3) gm/dl Hct 35.9 33.9 (30.3-42.9) % Plt Count 272 289 (140-440) K/mm3 Lymph # (Auto) 1.4 1.7 (1.2-5.4) K/mm3 [place] # (Auto) 0.5 0.7 (0.0-0.8) K/mm3 Eos # (Auto) 0.0 0.0 (0.0-0.4) K/mm3 Baso # (Auto) 0.0 0.0 (0.0-0.1) K/mm3 Comprehensive Metabolic Panel 06/18/22 06/18/22 06/19/22 Range/Units 18:58 21:06 04:20 Sodium 142 138 143 (137-145) mmol/L Potassium 6.2 H* 5.7 H 5.3 H (3.6-5.0) mmol/L Chloride 109.4 H 108.3 H 108.8 H (98-107) mmol/L Carbon Dioxide 12 L 15 L 15 L (22-30) mmol/L BUN 42 H 39 H 34 H (7-17) mg/dL Creatinine 2.8 H 2.5 H 2.3 H (0.6-1.2) mg/dL Glucose 86 54 L 109 H (65-100) mg/dL Calcium 8.7 8.5 8.9 (8.4-10.2) mg/dL AST 29 (5-40) units/L ALT 9 (7-56) units/L Alkaline Phosphatase 92 (35-129) units/L Total Protein 6.5 (6.3-8.2) g/dL Albumin 3.8 L (3.9-5) g/dL - Imaging and Cardiology Echo: pending EKG: report reviewed, image reviewed EKG interpretations - Telemetry EKG Rhythm: Sinus Rhythm - EKG Sinus rhythms and dysrhythmias: sinus rhythm AV and intraventricular conduction: left anterior fascicular Assessment and Plan Mild tn elevation noted in the setting of SYLVIA. Pt denies chest pain. No acute ischemic changes on ECG. Echo pending. Agree with IV fluids. Hold Lasix and Losartan in light of SYLVIA. Pt seen in conjunction with Dr. Macias, who agrees with the assessment and plan of care. - Patient Problems (1) Elevated troponin Current Visit: Yes Status: Acute (2) Status post fall Current Visit: Yes Status: Acute (3) SYLVIA (acute kidney injury) Current Visit: Yes Status: Acute (4) Hyperkalemia Current Visit: Yes Status: Acute (5) HTN (hypertension) Current Visit: Yes Status: Chronic Qualifiers: Hypertension type: primary hypertension Qualified Code(s): I10 - Essential (primary) hypertension (6) DM2 (diabetes mellitus, type 2) Current Visit: Yes Status: Chronic (7) PAD (peripheral artery disease) Current Visit: Yes Status: Chronic (8) Chronic ulcer of lower extremity Current Visit: Yes Status: Chronic (9) Hx of deep venous thrombosis Current Visit: Yes Status: Chronic (10) Depression Current Visit: Yes Status: Chronic Qualifiers: Depression Type: major depressive disorder
--- NOTE | 2022-06-19 08:54 | Progress Note ---
Assessment and Plan Assessment and plan: -- SYLVIA (acute kidney injury) vasomotor nephropathy/POA Gentle hydration , monitor renal function , avoid nephrotoxin Nephrology consulted .renal ultrasound if needed -- Elevated troponin Aspirin 325 mg p.o. daily. Lipitor 40 mg p.o. daily. Serial cardiac enzymes. Echocardiogram. Cardiology evaluation --Hyperkalemia Significantly improved potassium today 5.3 Closely monitor electrolytes, low-dose Kayexalatex 1 --Hypoglycemia D5 half-normal saline at the rate of 100 cc/h. We will monitor the glucose closely. Recheck BMP in the morning. Diabetic education -- Type 2 diabetes mellitus Patient is on metformin, will hold Closely monitor blood sugars, check A1c Avoid hypoglycemic -- Chronic venous stasis ulcers Wound care, antibiotics if needed Patient follows with surgeon Dr. Sterling in the wound clinic Consult if needed -- DVT prophylaxis- Heparin 5000 units subcu every 12 hours[renal dose] for DVT prophylaxis. Pepcid 20 mg IV every 12 hours for GI prophylaxis. Patient is a full code -full CODE STATUS We will closely monitor the patient and adjust the management as needed Follow consultants evaluation and recommendation Plan of care reviewed with the patient and her nurse History Interval history: I Have seen and examined the patient at the bedside Patient's chart and medications reviewed Patient feels better, no new complaints Vital signs noted Hospitalist Physical - Constitutional Vitals: Temp Pulse Resp BP Pulse Ox 98.8 F 92 H 17 121/67 100 06/18/22 20:35 06/19/22 06:16 06/19/22 06:16 06/19/22 06:16 06/19/22 06:16 General appearance: Present: no acute distress, well-nourished - EENT Eyes: Present: PERRL, EOM intact - Neck Neck: Present: supple, normal ROM - Respiratory Respiratory effort: normal Respiratory: bilateral: diminished, negative: rales, rhonchi, wheezing - Cardiovascular Heart Sounds: Present: S1 & S2. Absent: gallop - Extremities Extremities: no ischemia, No edema - Abdominal General gastrointestinal: soft, non-tender, non-distended, normal bowel sounds - Integumentary Integumentary: Present: clear, warm - Psychiatric Psychiatric: appropriate mood/affect, cooperative - Neurologic Neurologic: moves all extremities HEART Score - HEART Score Troponin: Troponin T 0.080 ng/mL (0.00-0.029) H 06/19/22 04:20 Results - Labs CBC & Chem 7: 06/21/22 23:53 06/22/22 09:48 Labs: Laboratory Last Values WBC 11.0 K/mm3 (4.5-11.0) 06/19/22 04:20 RBC 4.03 M/mm3 (3.65-5.03) 06/19/22 04:20 Hgb 10.9 gm/dl (10.1-14.3) 06/19/22 04:20 Hct 33.9 % (30.3-42.9) 06/19/22 04:20 MCV 84 fl (79-97) 06/19/22 04:20 MCH 27 pg (28-32) L 06/19/22 04:20 MCHC 32 % (30-34) 06/19/22 04:20 RDW 14.4 % (13.2-15.2) 06/19/22 04:20 Plt Count 289 K/mm3 (140-440) 06/19/22 04:20 Lymph % (Auto) 16.1 % (13.4-35.0) 06/19/22 04:20 [place] % (Auto) 6.2 % (0.0-7.3) 06/19/22 04:20 Eos % (Auto) 0.1 % (0.0-4.3) 06/19/22 04:20 Baso % (Auto) 0.2 % (0.0-1.8) 06/19/22 04:20 Lymph # (Auto) 1.7 K/mm3 (1.2-5.4) 06/19/22 04:20 [place] # (Auto) 0.7 K/mm3 (0.0-0.8) 06/19/22 04:20 Eos # (Auto) 0.0 K/mm3 (0.0-0.4) 06/19/22 04:20 Baso # (Auto) 0.0 K/mm3 (0.0-0.1) 06/19/22 04:20 Seg Neutrophils % 77.4 % (40.0-70.0) H 06/19/22 04:20 Seg Neutrophils # 8.4 K/mm3 (1.8-7.7) H 06/19/22 04:20 Sodium 143 mmol/L (137-145) 06/19/22 04:20 Potassium 5.3 mmol/L (3.6-5.0) H 06/19/22 04:20 Chloride 108.8 mmol/L (98-107) H 06/19/22 04:20 Carbon Dioxide 15 mmol/L (22-30) L 06/19/22 04:20 Anion Gap 25 mmol/L 06/19/22 04:20 BUN 34 mg/dL (7-17) H 06/19/22 04:20 Creatinine 2.3 mg/dL (0.6-1.2) H 06/19/22 04:20 Estimated GFR 25 ml/min 06/19/22 04:20 BUN/Creatinine Ratio 15 % 06/19/22 04:20 Glucose 109 mg/dL (65-100) H 06/19/22 04:20 POC Glucose 192 mg/dL (70-105) H 06/19/22 03:05 Calcium 8.9 mg/dL (8.4-10.2) 06/19/22 04:20 Total Bilirubin < 0.20 mg/dL (0.1-1.2) 06/18/22 18:58 AST 29 units/L (5-40) 06/18/22 18:58 ALT 9 units/L (7-56) 06/18/22 18:58 Alkaline Phosphatase 92 units/L (35-129) 06/18/22 18:58 Troponin T 0.080 ng/mL (0.00-0.029) H 06/19/22 04:20 Total Protein 6.5 g/dL (6.3-8.2) 06/18/22 18:58 Albumin 3.8 g/dL (3.9-5) L 06/18/22 18:58 Albumin/Globulin Ratio 1.4 % 06/18/22 18:58 Triglycerides 80 mg/dL (2-149) 06/18/22 18:58 Cholesterol 151 mg/dL (50-199) 06/18/22 18:58 LDL Cholesterol Direct 66 mg/dL (50-130) 06/18/22 18:58 HDL Cholesterol 73 mg/dL (40-59) H 06/18/22 18:58 Cholesterol/HDL Ratio 2.06 % 06/18/22 18:58 Active Medications - Current Medications Current Medications: Generic Name Dose Route Start Last Admin Trade Name Freq PRN Reason Stop Dose Admin Acetaminophen 650 mg 06/18/22 22:34 Acetaminophen 325 Mg Tab PO Q6H PRN Pain, Mild (1-3) Alprazolam 0.25 mg 06/18/22 22:38 Alprazolam 0.25 Mg Tab PO Q6H PRN Anxiety Aspirin 325 mg 06/19/22 10:00 Aspirin Ec 325 Mg Tab PO QDAY [facility] Atorvastatin Calcium 40 mg 06/19/22 22:00 Atorvastatin 40 Mg Tab PO QHS [facility] Dextrose 50 ml 06/18/22 22:34 Dextrose 50% In Water (25gm) 50 Ml Syringe IV Q30MIN PRN Hypoglycemia Protocol Furosemide 20 mg 06/19/22 10:00 Furosemide 20 Mg Tab PO QDAY [facility] Heparin Sodium (Porcine) 5,000 unit 06/19/22 06:00 Heparin 5,000 Unit/1 Ml Vial SUB-Q Q8HR [facility] Dextrose/Sodium Chloride 1,000 mls @ 100 mls/hr 06/18/22 23:00 06/19/22 01:50 D5/0.45ns IV 100 mls/hr DIRECT [facility] Administration Insulin Human Lispro 0 unit 06/19/22 00:00 06/19/22 01:56 Insulin Lispro 100 Unit/Ml SUB-Q Not Given Q6HR [facility] Protocol Metoprolol Succinate 50 mg 06/19/22 10:00 Metoprolol Succinate Xl 50 Mg Tab PO QDAY [facility] Morphine Sulfate 2 mg 06/18/22 22:34 Morphine 4 Mg/1 Ml Inj IV Q5MIN PRN Chest Pain unrelieved by NTG Nitroglycerin 0.4 mg 06/18/22 22:34 Nitroglycerin 0.4 Mg Tab Subl SL Q5M PRN Chest Pain Pantoprazole Sodium 40 mg 06/19/22 10:00 Pantoprazole 40 Mg Tab PO QDAY [facility] Pentoxifylline 400 mg 06/19/22 08:00 Pentoxifylline Er 400 Mg Tab PO TID [facility] Sodium Chloride 10 ml 06/18/22 22:34 Sodium Chloride 0.9% 10 Ml Flush Syringe IV PRN PRN LINE FLUSH Tramadol HCl 50 mg 06/18/22 22:34 Tramadol 50 Mg Tab PO Q6H PRN Pain, Moderate (4-6)
[2022-06-19] MEDS ORDERED: FUROSEMIDE 20 MG TAB PO SCH (10:00)
[2022-06-19] MEDS ORDERED: SODIUM POLYSTYRENE 15 GM/60 ML ORAL LIQD PO SCH (10:00)
[2022-06-19] MEDS: PENTOXIFYLLINE ER 400 MG TAB PO SCH ×3 (10:53→20:30)
[2022-06-19] MEDS: ASPIRIN EC 325 MG TAB PO SCH (10:53)
[2022-06-19] MEDS: HEPARIN 5,000 UNIT/1 ML VIAL SUB-Q SCH ×2 (10:53→22:18)
[2022-06-19] MEDS: METOPROLOL SUCCINATE XL 50 MG TAB PO SCH (10:54)
[2022-06-19] MEDS: PANTOPRAZOLE 40 MG TAB PO SCH (10:54)
[2022-06-19] MEDS: traMADol 50 MG TAB PO PRN ×2 (11:05→23:33)
--- NOTE | 2022-06-19 11:52 | Electrocardiograph Report ---
[facility] Test Date: 2022-06-18 Test Time: 20:53:14 Pat Name: SAMIA FINCH Department: Room: A483 1 Gender: F Workshop Manager: ILENE : 1950 Requested By: MCKAYLA DEE Order Number: [id number] Reading MD: David Macias Measurements Intervals [place] Rate: 57 P: 59 IA: 133 QRS: -50 QRSD: 76 T: 35 QT: 412 QTc: 400 Interpretive Statements Sinus bradycardia Left anterior fascicular block No previous ECG available for comparison Electronically Signed On 06-19-2022 11:52:40 EDT by David Macias
[2022-06-19] MEDS ORDERED: ONDANSETRON 4 MG/2 ML INJ ONE (12:38)
--- NOTE | 2022-06-19 15:04 | Consultation ---
History of Present Illness - Reason for Consult Consult date: 06/19/22 acute renal failure - History of Present Illness 72-year-old woman with history of diabetes and hypertension presents to the ED (via EMS) for hypoglycemia. Patient states that her appetite has been poor for some time, and is on medication to help with appetite. Per patient, she passed out due to poor sugar and appetite, was on ground for few minutes and called for her brother to help. Patient denies known history of kidney disease, but states she was supposed to see a custom home installer after last hospitalization. Of note, Dr. Sanchez saw patient on consult in November 2021 for similar presentation. Patient denies any other issues, just states that she cannot eat. Numerous family members present with patient. Past History Past Medical History: diabetes, hypertension, other (PAD, chronic BLE ulcers, RLE DVT) Past Surgical History: Other (BLE wound debridements). denies: valve replacement, CABG, PTCA Social history: smoking (former ~ 15 yrs ago). denies: alcohol abuse Family history: cancer Medications and Allergies Allergies Allergy/AdvReac Type Severity Reaction Status Date / Time No Known Allergies Allergy Verified 11/26/21 18:42 Home Medications Medication Instructions Recorded Confirmed Last Taken Type ALPRAZolam [Xanax TAB] 0.25 mg PO Q6H PRN 11/27/21 06/19/22 Unknown History AtorvaSTATin [Lipitor] 40 mg PO QHS 11/27/21 06/19/22 Unknown History Furosemide [Lasix TAB] 20 mg PO QDAY 11/27/21 06/19/22 Unknown History Losartan [Cozaar] 100 mg PO QDAY 11/27/21 06/19/22 Unknown History Metformin HCl [metFORMIN] 1,000 mg PO BID 11/27/21 06/19/22 Unknown History Metoprolol Xl [Metoprolol 50 mg PO QDAY 11/27/21 06/19/22 Unknown History SUCCINATE ER TAB] Pentoxifylline 400 mg PO TID 11/27/21 06/19/22 Unknown History Potassium Chloride [K-Dur] 20 meq PO QDAY 11/27/21 06/19/22 Unknown History traMADoL [Ultram 50 MG tab] 50 mg PO TID PRN 11/27/21 06/19/22 Unknown History Doxycycline Hyclate [Doxycycline 100 mg PO Q12HR 6 Days #12 tab 11/28/21 06/19/22 Unknown Rx Hyclate TAB] Sodium Hypochlorite [Dakin's Full 1 applic TP Q12H PRN 30 Days #2 11/28/21 06/19/22 Unknown Rx Strength] bottle Active Meds: Active Medications Acetaminophen (Acetaminophen 325 Mg Tab) 650 mg PO Q6H PRN PRN Reason: Pain, Mild (1-3) Alprazolam (Alprazolam 0.25 Mg Tab) 0.25 mg PO Q6H PRN PRN Reason: Anxiety Last Admin: 06/19/22 12:39 Dose: 0.25 mg Aspirin (Aspirin Ec 325 Mg Tab) 325 mg PO QDAY [facility] Last Admin: 06/19/22 10:53 Dose: 325 mg Atorvastatin Calcium (Atorvastatin 40 Mg Tab) 40 mg PO QHS [facility] Dextrose (Dextrose 50% In Water (25gm) 50 Ml Syringe) 50 ml IV Q30MIN PRN; Protocol PRN Reason: Hypoglycemia Heparin Sodium (Porcine) (Heparin 5,000 Unit/1 Ml Vial) 5,000 unit SUB-Q Q12H [facility] Last Admin: 06/19/22 10:53 Dose: 5,000 unit Dextrose/Sodium Chloride (D5/0.45ns) 1,000 mls @ 100 mls/hr IV DIRECT [facility] Last Admin: 06/19/22 01:50 Dose: 100 mls/hr Insulin Human Lispro (Insulin Lispro 100 Unit/Ml) 0 unit SUB-Q Q6HR [facility]; Protocol Last Admin: 06/19/22 12:35 Dose: Not Given Metoprolol Succinate (Metoprolol Succinate Xl 50 Mg Tab) 50 mg PO QDAY [facility] Last Admin: 06/19/22 10:54 Dose: 50 mg Morphine Sulfate (Morphine 4 Mg/1 Ml Inj) 2 mg IV Q5MIN PRN PRN Reason: Chest Pain unrelieved by NTG Nitroglycerin (Nitroglycerin 0.4 Mg Tab Subl) 0.4 mg SL Q5M PRN PRN Reason: Chest Pain Pantoprazole Sodium (Pantoprazole 40 Mg Tab) 40 mg PO QDAY [facility] Last Admin: 06/19/22 10:54 Dose: 40 mg Pentoxifylline (Pentoxifylline Er 400 Mg Tab) 400 mg PO TID [facility] Last Admin: 06/19/22 10:53 Dose: 400 mg Sodium Chloride (Sodium Chloride 0.9% 10 Ml Flush Syringe) 10 ml IV PRN PRN PRN Reason: LINE FLUSH Sodium Polystyrene Sulfonate (Sodium Polystyrene 15 Gm/60 Ml Oral Liqd) 15 gm PO QDAY OLIVIA Last Admin: 06/19/22 10:52 Dose: 15 gm Tramadol HCl (Tramadol 50 Mg Tab) 50 mg PO Q6H PRN PRN Reason: Pain, Moderate (4-6) Last Admin: 06/19/22 11:05 Dose: 50 mg Review of Systems All systems: negative (as per HPI) Exam - Vital Signs Vital signs: Vital Signs Temp Pulse Resp BP Pulse Ox 98.4 F 86 18 154/86 98 06/18/22 16:53 06/18/22 16:53 06/18/22 16:53 06/18/22 16:53 06/18/22 16:53 - General Appearance General appearance: well-developed, well-nourished EENT: ATNC Neck: Present: neck supple Respiratory: Clear to Ascultation Heart: normal heart rate, S1S2 Gastrointestinal: Present: normoactive bowel sounds Integumentary: no rash, warm and dry Neurologic: no focal deficit, no asterixis, alert and oriented x3 Psychiatric: mood/affect appropriate Results - Lab Results 06/19/22 04:20 06/19/22 04:20 Most recent lab results Calcium 8.9 mg/dL (8.4-10.2) 06/19/22 04:20 Assessment and Plan # GERA: suspect Gera in setting of pre-renal injury given history of poor nutrition and on diuretic/ACEI for BP. - defer GERA workup given history and prior presentation- will check imaging, urine, etc if not improving - agree with holding Lasix, lisinopril - check CK as may have mild rhabdo given history of fall - continue IVF as tolerated - avoid nephrotoxins - renally dose medications - no indication for kidney biopsy, dialysis # Tropinemia: appreciate cardiology # Hyperkalemia: note mild K 5.3, hold JORDON-I # HTN: note BP soft # Hypoglycemia: per primary, note history of DM, A1c pending # Malnutrition: may benefit from appetite stimulant, agricultural technical officer?
[2022-06-19] MEDS: DEXTROSE 50% IN WATER (25GM) 50 ML SYRINGE IV PRN (17:00)
[2022-06-19] MEDS: SODIUM BICARBONATE 650 MG TAB PO SCH (22:18)
[2022-06-20] MEDS: INSULIN LISPRO 100 UNIT/ML SUB-Q SCH ×5 (00:05→17:13)
[2022-06-20] MEDS: D5W/0.45% NACL 1,000 ML IV SCH ×2 (05:14→17:59)
[2022-06-20] MEDS: PENTOXIFYLLINE ER 400 MG TAB PO SCH ×3 (08:19→20:45)
[2022-06-20] MEDS: ASPIRIN EC 325 MG TAB PO SCH (09:42)
[2022-06-20] MEDS: METOPROLOL SUCCINATE XL 50 MG TAB PO SCH (09:42)
[2022-06-20] MEDS: SODIUM BICARBONATE 650 MG TAB PO SCH ×2 (09:42→22:12)
[2022-06-20] MEDS: PANTOPRAZOLE 40 MG TAB PO SCH (09:42)
[2022-06-20] MEDS: HEPARIN 5,000 UNIT/1 ML VIAL SUB-Q SCH ×2 (09:47→22:12)
[2022-06-20] MEDS: traMADol 50 MG TAB PO PRN ×3 (09:55→23:30)
--- NOTE | 2022-06-20 10:36 | Progress Note ---
Assessment and Plan Echo reviewed - LVEF 65-70%, mild diastolic dysfxn, normal RVSF, trace TR, mild AR. Plan for Lexiscan stress MPI in AM. Continue Toprol XL 50mg daily. Lasix and Losartan held in light of SYLVIA. Continue IV fluids. Nephro following. Records in Care Everywhere reveal pt was apparently on Eliquis for a chronic RLE DVT (as of 03/18/2022). Doppler results below. Consider resuming Eliquis as such if no contraindications. Pt follows with Wound Care regularly for venous stasis ulcers. BLE Doppers 02/17/2022 - 1. No evidence of acute deep vein thrombosis in either lower extremity. 2. Chronic appearing thrombus noted within the proximal right femoral vein, which is nonocclusive. 3. Superficial venous thrombosis noted within the left greater and lesser saphenous veins. Pt seen in conjunction with Dr. Macias, who agrees with the assessment and plan of care. - Patient Problems (1) Chest pain Current Visit: Yes Status: Acute (2) Elevated troponin Current Visit: Yes Status: Acute (3) Status post fall Current Visit: Yes Status: Acute (4) SYLVIA (acute kidney injury) Current Visit: Yes Status: Acute (5) Hyperkalemia Current Visit: Yes Status: Acute (6) HTN (hypertension) Current Visit: Yes Status: Chronic Qualifiers: Hypertension type: primary hypertension Qualified Code(s): I10 - Essential (primary) hypertension (7) DM2 (diabetes mellitus, type 2) Current Visit: Yes Status: Chronic (8) PAD (peripheral artery disease) Current Visit: Yes Status: Chronic (9) Chronic ulcer of lower extremity Current Visit: Yes Status: Chronic (10) Hx of deep venous thrombosis Current Visit: Yes Status: Chronic (11) Depression Current Visit: Yes Status: Chronic Qualifiers: Depression Type: major depressive disorder (12) Failure to thrive Current Visit: Yes Status: Suspected Subjective Date of service: 06/20/22 Principal diagnosis: Elevated Troponin Interval history: C/o pain in her legs. Also reports an episode of chest pain "chest thump" this AM. Unable to characterize. Objective Vital Signs Temp Pulse Pulse Resp BP Pulse Ox 06/20/22 08:27 97.5 F L 64 18 127/51 99 06/20/22 06:00 80 09/25/22 04:33 98.1 F 71 18 139/79 100 06/20/22 03:25 97 06/19/22 22:00 80 06/19/22 21:12 98.8 F 75 18 118/62 100 06/19/22 16:30 75 20 98 06/19/22 16:00 98.3 F 78 120/64 99 06/19/22 14:59 68 06/19/22 13:34 102/52 06/19/22 11:00 75 20 98 06/19/22 10:54 128/70 06/19/22 10:40 98.3 F 66 123/52 100 - Physical Examination General: No Apparent Distress HEENT: Positive: EOMI, Normocephaly Neck: Positive: neck supple. Negative: JVD/HJR Cardiac: Positive: Reg Rate and Rhythm, S1/S2 Lungs: Positive: clear to auscultation Neuro: Positive: Grossly Intact Abdomen: Positive: Soft. Negative: Tender Skin: Positive: Wound (chronic BLE). Negative: Rash Musculoskeletal: Normal Range of Motion Extremities: Present: upper extr. pulses, edema (non-pitting), warm, Other (BLE dressings in situ) - Imaging and Cardiology EKG: report reviewed, image reviewed Pharmacologic stress test: pending Echo: report reviewed - Telemetry EKG Rhythm: Sinus Rhythm - EKG Sinus rhythms and dysrhythmias: sinus rhythm AV and intraventricular conduction: left anterior fascicular
--- NOTE | 2022-06-20 11:00 | Electrocardiograph Report ---
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
--- NOTE | 2022-06-20 12:17 | Progress Note ---
Assessment and Plan Assessment and plan: -- SYLVIA (acute kidney injury) vasomotor nephropathy/POA Gentle hydration , monitor renal function , avoid nephrotoxin Nephrology consulted .renal ultrasound if needed -- Elevated troponin Aspirin 325 mg p.o. daily. Lipitor 40 mg p.o. daily. Serial cardiac enzymes. Echocardiogram. Cardiology evaluation --Hyperkalemia Significantly improved potassium today 5.3 Closely monitor electrolytes, low-dose Kayexalatex 1 --Hypoglycemia D5 half-normal saline at the rate of 100 cc/h. We will monitor the glucose closely. Recheck BMP in the morning. Diabetic education -- Type 2 diabetes mellitus Patient is on metformin, will hold Closely monitor blood sugars, check A1c Avoid hypoglycemic -- Chronic venous stasis ulcers Wound care, antibiotics if needed Patient follows with surgeon Dr. Sterling in the wound clinic Consult if needed -- DVT prophylaxis- Heparin 5000 units subcu every 12 hours[renal dose] for DVT prophylaxis. Pepcid 20 mg IV every 12 hours for GI prophylaxis. Patient is a full code -full CODE STATUS We will closely monitor the patient and adjust the management as needed Follow consultants evaluation and recommendation History Interval history: I have seen and examined the patient at the bedside Patient's chart and medications reviewed No new events reported peripheral Vital signs noted Hospitalist Physical - Constitutional Vitals: Temp Pulse Resp BP Pulse Ox 97.5 F L 64 18 127/51 99 06/20/22 08:27 06/20/22 08:27 06/20/22 08:27 06/20/22 08:27 06/20/22 08:27 General appearance: Present: no acute distress, well-nourished - EENT Eyes: Present: PERRL, EOM intact - Neck Neck: Present: supple, normal ROM - Respiratory Respiratory effort: normal Respiratory: bilateral: diminished, negative: rales, rhonchi, wheezing - Cardiovascular Rhythm: regular Heart Sounds: Present: S1 & S2 - Extremities Extremities: no ischemia, No edema - Abdominal General gastrointestinal: soft, non-tender, non-distended, normal bowel sounds - Integumentary Integumentary: Present: clear, warm - Psychiatric Psychiatric: appropriate mood/affect, cooperative - Neurologic Neurologic: moves all extremities HEART Score - HEART Score Troponin: Troponin T 0.080 ng/mL (0.00-0.029) H 06/19/22 04:20 Results - Labs CBC & Chem 7: 06/19/22 04:20 06/19/22 04:20 Labs: Laboratory Last Values WBC 11.0 K/mm3 (4.5-11.0) 06/19/22 04:20 RBC 4.03 M/mm3 (3.65-5.03) 06/19/22 04:20 Hgb 10.9 gm/dl (10.1-14.3) 06/19/22 04:20 Hct 33.9 % (30.3-42.9) 06/19/22 04:20 MCV 84 fl (79-97) 06/19/22 04:20 MCH 27 pg (28-32) L 06/19/22 04:20 MCHC 32 % (30-34) 06/19/22 04:20 RDW 14.4 % (13.2-15.2) 06/19/22 04:20 Plt Count 289 K/mm3 (140-440) 06/19/22 04:20 Lymph % (Auto) 16.1 % (13.4-35.0) 06/19/22 04:20 [place] % (Auto) 6.2 % (0.0-7.3) 06/19/22 04:20 Eos % (Auto) 0.1 % (0.0-4.3) 06/19/22 04:20 Baso % (Auto) 0.2 % (0.0-1.8) 06/19/22 04:20 Lymph # (Auto) 1.7 K/mm3 (1.2-5.4) 06/19/22 04:20 [place] # (Auto) 0.7 K/mm3 (0.0-0.8) 06/19/22 04:20 Eos # (Auto) 0.0 K/mm3 (0.0-0.4) 06/19/22 04:20 Baso # (Auto) 0.0 K/mm3 (0.0-0.1) 06/19/22 04:20 Seg Neutrophils % 77.4 % (40.0-70.0) H 06/19/22 04:20 Seg Neutrophils # 8.4 K/mm3 (1.8-7.7) H 06/19/22 04:20 Sodium 143 mmol/L (137-145) 06/19/22 04:20 Potassium 5.3 mmol/L (3.6-5.0) H 06/19/22 04:20 Chloride 108.8 mmol/L (98-107) H 06/19/22 04:20 Carbon Dioxide 15 mmol/L (22-30) L 06/19/22 04:20 Anion Gap 25 mmol/L 06/19/22 04:20 BUN 34 mg/dL (7-17) H 06/19/22 04:20 Creatinine 2.3 mg/dL (0.6-1.2) H 06/19/22 04:20 Estimated GFR 25 ml/min 06/19/22 04:20 BUN/Creatinine Ratio 15 % 06/19/22 04:20 Glucose 109 mg/dL (65-100) H 06/19/22 04:20 POC Glucose 145 mg/dL (70-105) H 06/19/22 20:40 Calcium 8.9 mg/dL (8.4-10.2) 06/19/22 04:20 Total Bilirubin < 0.20 mg/dL (0.1-1.2) 06/18/22 18:58 AST 29 units/L (5-40) 06/18/22 18:58 ALT 9 units/L (7-56) 06/18/22 18:58 Alkaline Phosphatase 92 units/L (35-129) 06/18/22 18:58 Troponin T 0.080 ng/mL (0.00-0.029) H 06/19/22 04:20 Total Protein 6.5 g/dL (6.3-8.2) 06/18/22 18:58 Albumin 3.8 g/dL (3.9-5) L 06/18/22 18:58 Albumin/Globulin Ratio 1.4 % 06/18/22 18:58 Triglycerides 80 mg/dL (2-149) 06/18/22 18:58 Cholesterol 151 mg/dL (50-199) 06/18/22 18:58 LDL Cholesterol Direct 66 mg/dL (50-130) 06/18/22 18:58 HDL Cholesterol 73 mg/dL (40-59) H 06/18/22 18:58 Cholesterol/HDL Ratio 2.06 % 06/18/22 18:58 Andrews/IV: Voiding Method External Female Catheter Active Medications - Current Medications Current Medications: Generic Name Dose Route Start Last Admin Trade Name Freq PRN Reason Stop Dose Admin Acetaminophen 650 mg 06/18/22 22:34 Acetaminophen 325 Mg Tab PO Q6H PRN Pain, Mild (1-3) Alprazolam 0.25 mg 06/18/22 22:38 06/19/22 12:39 Alprazolam 0.25 Mg Tab PO 0.25 mg Q6H PRN Administration Anxiety Aspirin 325 mg 06/19/22 10:00 06/20/22 09:42 Aspirin Ec 325 Mg Tab PO 325 mg QDAY OLIVIA Administration Atorvastatin Calcium 40 mg 06/19/22 22:00 06/19/22 22:18 Atorvastatin 40 Mg Tab PO 40 mg QHS OLIVIA Administration Dextrose 50 ml 06/18/22 22:34 06/19/22 17:00 Dextrose 50% In Water (25gm) 50 Ml Syringe IV 15 ml Q30MIN PRN Administration Hypoglycemia Protocol Heparin Sodium (Porcine) 5,000 unit 06/19/22 10:00 06/20/22 09:47 Heparin 5,000 Unit/1 Ml Vial SUB-Q 5,000 unit Q12H OLIVIA Administration Dextrose/Sodium Chloride 1,000 mls @ 100 mls/hr 06/18/22 23:00 06/20/22 05:14 D5/0.45ns IV 100 mls/hr DIRECT OLIVIA Administration Insulin Human Lispro 0 unit 06/19/22 00:00 06/20/22 05:56 Insulin Lispro 100 Unit/Ml SUB-Q Not Given Q6HR OLIVIA Protocol Metoprolol Succinate 50 mg 06/19/22 10:00 06/20/22 09:42 Metoprolol Succinate Xl 50 Mg Tab PO 50 mg QDAY OLIVIA Administration Morphine Sulfate 2 mg 06/18/22 22:34 Morphine 4 Mg/1 Ml Inj IV Q5MIN PRN Chest Pain unrelieved by NTG Nitroglycerin 0.4 mg 06/18/22 22:34 Nitroglycerin 0.4 Mg Tab Subl SL Q5M PRN Chest Pain Pantoprazole Sodium 40 mg 06/19/22 10:00 06/20/22 09:42 Pantoprazole 40 Mg Tab PO 40 mg QDAY OLIVIA Administration Pentoxifylline 400 mg 06/19/22 08:00 06/20/22 08:19 Pentoxifylline Er 400 Mg Tab PO 400 mg TID OLIVIA Administration Sodium Bicarbonate 650 mg 06/19/22 22:00 06/20/22 09:42 Sodium Bicarbonate 650 Mg Tab PO 650 mg BID OLIVIA Administration Sodium Chloride 10 ml 06/18/22 22:34 Sodium Chloride 0.9% 10 Ml Flush Syringe IV PRN PRN LINE FLUSH Tramadol HCl 50 mg 06/18/22 22:34 06/20/22 09:55 Tramadol 50 Mg Tab PO 50 mg Q6H PRN Administration Pain, Moderate (4-6) Nutrition/Malnutrition Assess - Dietary Evaluation Nutrition/Malnutrition Findings: Nutrition Notes Start: 06/19/22 14:42 Freq: Status: Active Protocol: Document 06/19/22 14:42 LUANN (Rec: 06/19/22 14:55 LUANN [id number]) Nutrition Notes Need for Assessment generated from: MD Order,Education Initial or Follow up Brief Note Current Diagnosis Acute Kidney Injury,Diabetes, Hypertension,Hyperlipidemia Other Pertinent Diagnosis Hyperkalemia, Wound Infection, Elevated Troponin, HIV/AIDS, s/p Hypoglycemi Current Diet Cardiac Diet Height 5 ft 5 in Weight 53.52 kg [place] Body Weight (kg) 56.81 BMI 19.6 Intake Prior to Admission Good Weight change and time frame 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 Weight Status Appropriate Subjective/Other Information RD consult for nutrition education assessment. No reports available on Pt's PO intake of meals at the time , will assess at F/U. Pt is on Room Air, O2 saturation @ 98%, according to Physical Assessment History notes. Pt has missing teeth, according to Physical Assessment History notes. Pt presents incontinence and diarrhea, according to Physical Assessment History notes. Pt shows Bilateral-Calfs vascular infected wounds as signs of concern for skin risk at the time, according to Physical Assessment History notes. Pt still in critical condition , not a candidate for Nutrition Education at the time, will assess feasibility on F/U. Percent of energy/protein needs met: Prescribed Cardiac Diet provides for energy/protein needs (2,230 Kcal/85 g) during LOS. Skin Integrity/Comment Bilateral-Calfs vascular wounds Nutrition Intervention Follow-Up By: 06/25/22 Additional Comments Nutrition education will be provided at F/U, if feasible. Continue monitoring food tolerance, %PO intake of meals , and BM.
--- NOTE | 2022-06-20 15:41 | Event Note ---
Not seen on renal rounds, no labs reviewed
[2022-06-20] MEDS: DEXTROSE 50% IN WATER (25GM) 50 ML SYRINGE IV PRN (17:13)
[2022-06-21] MEDS: INSULIN LISPRO 100 UNIT/ML SUB-Q SCH ×4 (06:37→17:00)
[2022-06-21] MEDS: PENTOXIFYLLINE ER 400 MG TAB PO SCH ×3 (08:00→22:39)
[2022-06-21 08:43] LABS: Basophils # (Auto) 0.1 K/mm3 (0.0-0.1); Basophils % (Auto) 0.9 % (0.0-1.8); Eosinophils % (Auto) 0.7 % (0.0-4.3); Hematocrit 31.9 % (30.3-42.9); Hemoglobin 9.9 gm/dl (10.1-14.3); Lymphocytes # (Auto) 2.7 K/mm3 (1.2-5.4); Mean Corpuscular HGB Conc 31 % (30-34); Mean Corpuscular Volume 85 fl (79-97); Monocytes # (Auto) 0.4 K/mm3 (0.0-0.8); Monocytes % (Auto) 5.8 % (0.0-7.3); Platelet Count 253 K/mm3 (140-440); Red Blood Count 3.74 M/mm3 (3.65-5.03); Red Cell Distribution Width 14.1 % (13.2-15.2)
[2022-06-21 08:55] LABS: Calcium 6.8 mg/dL (8.4-10.2)
[2022-06-21] MEDS ORDERED: DOBUTamine 100 MG in DEXTROSE 5% IN WATER 92 ML IV ONE (10:00)
--- NOTE | 2022-06-21 10:12 | Progress Note ---
Assessment and Plan Impression * Acute kidney injury secondary to prerenal azotemia due to volume depletion in setting of ACEi and diuretic * Hypoglycemia * Hyperkalemia * Hypetension Plan: * SYLVIA resolved with conservative management, IVF * Continue to hold diuretics, ACEi for now * Note plans for MPI this AM * Dose medications for renal function * Avoid potential nephrotoxins * Glycemic control per primary team Subjective Date of service: 06/21/22 Principal diagnosis: Elevated Troponin Interval history: Patient is off the floor at time of visit Chart, vitals, labs reviewed. Objective - Exam Narrative Exam: Physical exam deferred as patient is off the floor at time of visit - Vital Signs Vital signs: Vital Signs - 12hr 06/20/22 06/21/22 06/21/22 23:48 04:00 06:00 Temperature 97.6 F Pulse Rate 55 L 55 L Pulse Rate [ 55 L From Monitor] Respiratory 20 18 Rate Blood Pressure 127/56 O2 Sat by Pulse 100 97 Oximetry - Lab 06/21/22 07:56 06/21/22 06:00 Most recent lab results Calcium 6.8 mg/dL (8.4-10.2) L D 06/21/22 06:00 Medications & Allergies - Medications Allergies/Adverse Reactions: Allergies No Known Allergies Allergy (Verified 11/26/21 18:42) Home Medications: Home Medications Medication Instructions Recorded Confirmed Last Taken Type ALPRAZolam [Xanax TAB] 0.25 mg PO Q6H PRN 11/27/21 06/19/22 Unknown History AtorvaSTATin [Lipitor] 40 mg PO QHS 11/27/21 06/19/22 Unknown History Furosemide [Lasix TAB] 20 mg PO QDAY 11/27/21 06/19/22 Unknown History Losartan [Cozaar] 100 mg PO QDAY 11/27/21 06/19/22 Unknown History Metformin HCl [metFORMIN] 1,000 mg PO BID 11/27/21 06/19/22 Unknown History Metoprolol Xl [Metoprolol 50 mg PO QDAY 11/27/21 06/19/22 Unknown History SUCCINATE ER TAB] Pentoxifylline 400 mg PO TID 11/27/21 06/19/22 Unknown History Potassium Chloride [K-Dur] 20 meq PO QDAY 11/27/21 06/19/22 Unknown History traMADoL [Ultram 50 MG tab] 50 mg PO TID PRN 11/27/21 06/19/22 Unknown History Doxycycline Hyclate [Doxycycline 100 mg PO Q12HR 6 Days #12 tab 11/28/21 06/19/22 Unknown Rx Hyclate TAB] Sodium Hypochlorite [Cristopherin's Full 1 applic TP Q12H PRN 30 Days #2 11/28/21 06/19/22 Unknown Rx Strength] bottle Active Medications: Generic Name Dose Route Start Last Admin Trade Name Freq PRN Reason Stop Dose Admin Acetaminophen 650 mg 06/18/22 22:34 Acetaminophen 325 Mg Tab PO Q6H PRN Pain, Mild (1-3) Alprazolam 0.25 mg 06/18/22 22:38 06/19/22 12:39 Alprazolam 0.25 Mg Tab PO 0.25 mg Q6H PRN Administration Anxiety Aspirin 325 mg 06/19/22 10:00 06/20/22 09:42 Aspirin Ec 325 Mg Tab PO 325 mg QDAY OLIVIA Administration Atorvastatin Calcium 40 mg 06/19/22 22:00 06/20/22 22:12 Atorvastatin 40 Mg Tab PO 40 mg QHS OLIVIA Administration Dextrose 50 ml 06/18/22 22:34 06/20/22 17:13 Dextrose 50% In Water (25gm) 50 Ml Syringe IV 10 ml Q30MIN PRN Administration Hypoglycemia Protocol Heparin Sodium (Porcine) 5,000 unit 06/19/22 10:00 06/20/22 22:12 Heparin 5,000 Unit/1 Ml Vial SUB-Q 5,000 unit Q12H OLIVIA Administration Dextrose/Sodium Chloride 1,000 mls @ 100 mls/hr 06/18/22 23:00 06/20/22 17:59 D5/0.45ns IV 100 mls/hr DIRECT OLIVIA Administration Dobutamine HCl 100 mg/ 100 mls @ 16.056 mls/hr 06/21/22 10:00 Dextrose IV 06/21/22 16:13 ONCE ONE Protocol 5 MCG/KG/MIN Insulin Human Lispro 0 unit 06/19/22 00:00 06/21/22 06:37 Insulin Lispro 100 Unit/Ml SUB-Q Not Given Q6HR OLIVIA Protocol Metoprolol Succinate 50 mg 06/19/22 10:00 06/20/22 09:42 Metoprolol Succinate Xl 50 Mg Tab PO 50 mg QDAY OLIVIA Administration Morphine Sulfate 2 mg 06/18/22 22:34 Morphine 4 Mg/1 Ml Inj IV Q5MIN PRN Chest Pain unrelieved by NTG Nitroglycerin 0.4 mg 06/18/22 22:34 Nitroglycerin 0.4 Mg Tab Subl SL Q5M PRN Chest Pain Pantoprazole Sodium 40 mg 06/19/22 10:00 06/20/22 09:42 Pantoprazole 40 Mg Tab PO 40 mg QDAY OLIVIA Administration Pentoxifylline 400 mg 06/19/22 08:00 06/20/22 20:45 Pentoxifylline Er 400 Mg Tab PO 400 mg TID OLIVIA Administration Sodium Bicarbonate 650 mg 06/19/22 22:00 06/20/22 22:12 Sodium Bicarbonate 650 Mg Tab PO 650 mg BID OLIVIA Administration Sodium Chloride 10 ml 06/18/22 22:34 06/20/22 22:12 Sodium Chloride 0.9% 10 Ml Flush Syringe IV 10 ml PRN PRN Administration LINE FLUSH Tramadol HCl 50 mg 06/18/22 22:34 06/20/22 23:30 Tramadol 50 Mg Tab PO 50 mg Q6H PRN Administration Pain, Moderate (4-6)
--- NOTE | 2022-06-21 10:18 | Electrocardiograph Report ---
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
[2022-06-21] MEDS ORDERED: ATROPINE 1 MG/ML VIAL IV ONE (10:39)
[2022-06-21] MEDS: ATROPINE 1 MG/ML VIAL IV ONE ×2 (10:43→12:45)
[2022-06-21] MEDS: ASPIRIN EC 325 MG TAB PO SCH (12:28)
[2022-06-21] MEDS: METOPROLOL SUCCINATE XL 50 MG TAB PO SCH (12:29)
[2022-06-21] MEDS: SODIUM BICARBONATE 650 MG TAB PO SCH ×2 (12:29→22:38)
[2022-06-21] MEDS: PANTOPRAZOLE 40 MG TAB PO SCH (12:30)
[2022-06-21] MEDS: APIXABAN 5 MG TAB PO SCH ×2 (12:57→22:38)
[2022-06-21] MEDS ORDERED: SODIUM POLYSTYRENE 15 GM/60 ML ORAL LIQD PO SCH (14:00)
--- NOTE | 2022-06-21 14:29 | Progress Note ---
Assessment and Plan Pt is a 72-year-old female who presented with complaints of generalized weakness after falling at home. Elevated troponins Chest pain S/p fall History of DVT Peripheral arterial disease Hypertension BLE Doppers 02/17/2022 - 1. No evidence of acute deep vein thrombosis in either lower extremity. 2. Chronic appearing thrombus noted within the proximal right femoral vein, which is nonocclusive. 3. Superficial venous thrombosis noted within the left greater and lesser saphenous veins. Echo 06/18/2022-EF 65 to 70%. Mild diastolic dysfunction present. Impaired relaxation pattern. Trace tricuspid regurgitation. Mild aortic regurgitation. Right ventricle systolic function is normal Plan: Patient discharged this a.m. patient had normal stress test with no signs of reversible ischemia. See report for full detail Continue Toprol XL 50mg daily. Losartan held in light of SYLVIA. Will defer volume management to nephrology due to renal function Records in Care Everywhere reveal pt was apparently on Eliquis for a chronic RLE DVT (as of 03/18/2022). Doppler results below. Consider resuming Eliquis as such if no contraindications. Pt follows with Wound Care regularly for venous stasis ulcers. Will resume anticoagulation with Eliquis Cardiac status otherwise stable we will see as needed Patient to follow-up with their PCP 1 to 2 weeks after discharge. Patient may also follow-up with our group, [facility] heart specialists, in 1 to 2-week after discharge. Phone #[phone] Pt seen in conjunction with Dr. Jacobsen, who agrees with the assessment and plan of care. - Patient Problems (1) SYLVIA (acute kidney injury) Current Visit: Yes Status: Acute (2) Elevated troponin Current Visit: Yes Status: Acute (3) Status post fall Current Visit: Yes Status: Acute (4) Chronic ulcer of lower extremity Current Visit: Yes Status: Chronic (5) DM2 (diabetes mellitus, type 2) Current Visit: Yes Status: Chronic (6) Elevated troponin Current Visit: Yes Status: Acute (7) Hyperkalemia Current Visit: Yes Status: Acute (8) Hx of deep venous thrombosis Current Visit: Yes Status: Chronic (9) PAD (peripheral artery disease) Current Visit: Yes Status: Chronic Subjective Date of service: 06/21/22 Principal diagnosis: Elevated Troponin Interval history: Patient for stress test this a.m. Sinus 60s on monitor Objective Vital Signs Temp Pulse Pulse Resp BP Pulse Ox 09/26/22 12:29 87 06/21/22 07:37 97.8 F 54 L 18 135/57 100 06/21/22 06:00 55 L 06/21/22 04:00 55 L 18 97 06/20/22 23:48 97.6 F 55 L 20 127/56 100 06/20/22 19:38 56 L 100 06/20/22 19:37 97.7 F 55 L 18 141/74 100 06/20/22 15:09 98.0 F 62 18 115/59 100 - Physical Examination General: No Apparent Distress HEENT: Positive: EOMI, Normocephaly Neck: Positive: neck supple. Negative: JVD/HJR Cardiac: Positive: Reg Rate and Rhythm Lungs: Positive: Normal Breath Sounds Neuro: Positive: Grossly Intact Abdomen: Positive: Soft. Negative: Tender Skin: Positive: Wound (chronic BLE). Negative: Rash Musculoskeletal: Normal Range of Motion Extremities: Present: upper extr. pulses, edema (non-pitting), warm, Other (BLE dressings in situ) - Labs and Meds CBC 06/21/22 Range/Units 07:56 WBC 6.4 (4.5-11.0) K/mm3 RBC 3.74 (3.65-5.03) M/mm3 Hgb 9.9 L (10.1-14.3) gm/dl Hct 31.9 (30.3-42.9) % Plt Count 253 (140-440) K/mm3 Lymph # (Auto) 2.7 (1.2-5.4) K/mm3 [place] # (Auto) 0.4 (0.0-0.8) K/mm3 Eos # (Auto) 0.0 (0.0-0.4) K/mm3 Baso # (Auto) 0.1 (0.0-0.1) K/mm3 Comprehensive Metabolic Panel 06/21/22 Range/Units 06:00 Sodium 138 (137-145) mmol/L Potassium 5.4 H (3.6-5.0) mmol/L Chloride 106.3 (98-107) mmol/L Carbon Dioxide 18 L (22-30) mmol/L BUN 12 (7-17) mg/dL Creatinine 1.1 D (0.6-1.2) mg/dL Glucose 82 (65-100) mg/dL Calcium 6.8 L D (8.4-10.2) mg/dL - Imaging and Cardiology EKG: report reviewed, image reviewed Echo: report reviewed - Telemetry EKG Rhythm: Sinus Rhythm - EKG Sinus rhythms and dysrhythmias: sinus rhythm AV and intraventricular conduction: left anterior fascicular
[2022-06-21] MEDS ORDERED: ONDANSETRON 4 MG/2 ML INJ IV PRN (16:59)
--- NOTE | 2022-06-21 17:02 | Discharge Summary ---
Providers - Providers Date of Admission: 06/18/22 22:34 Date of discharge: 06/21/22 Attending physician: VERNA COLLAZO 06/18/22 Consult to Cardiac Rehabilitation [CONS] Routine Reason For Exam: Phase I 06/18/22 22:34 Consult to Cardiology [CONS] Routine Consulting Provider: BORIS DEE Reason For Exam: Elevated troponin Consult to Dietitian/Nutrition [CONS] Routine Physician Instructions: Reason For Exam: Reason for Consult: Diet education 06/18/22 22:41 Consult to Physician [CONS] Routine Comment: Consulting Provider: JULY CLARK Physician Instructions: Reason For Exam: sylvia Primary care physician: [employer] WORKER Hospitalization Condition: Stable Hospital course: -- SYLVIA (acute kidney injury) vasomotor nephropathy/POA Gentle hydration , monitor renal function , avoid nephrotoxin Nephrology consulted .renal ultrasound if needed -- Elevated troponin Aspirin 325 mg p.o. daily. Lipitor 40 mg p.o. daily. Serial cardiac enzymes. Echocardiogram. Cardiology evaluation --Hyperkalemia Significantly improved potassium today 5.3 Closely monitor electrolytes, low-dose Kayexalatex 1 --Hypoglycemia D5 half-normal saline at the rate of 100 cc/h. We will monitor the glucose closely. Recheck BMP in the morning. Diabetic education -- Type 2 diabetes mellitus Patient is on metformin, will hold Closely monitor blood sugars, check A1c Avoid hypoglycemic -- Chronic venous stasis ulcers Wound care, antibiotics if needed Patient follows with surgeon Dr. Sterling in the wound clinic Consult if needed Disposition: 30 STILL A PATIENT Final Discharge Diagnosis (Prints w/discharge instructions): Acute kidney injury/vasomotor nephropathy/resolved. Elevated troponin; stress test is negative for reversible ischemia. Hyperkalemia; resolved. Hypoglycemia/poor oral intake improved. Type 2 diabetes mellitus; low blood sugars continue to monitor. Chronic venous stasis ulcers; outpatient wound care Time spent for discharge: 35 minutes Core Measure Documentation - Palliative Care Palliative Care/ Comfort Measures: Not Applicable - Core Measures Any of the following diagnoses?: none Exam - Constitutional Vitals: Temp Pulse Resp BP Pulse Ox 97.8 F 87 18 135/57 100 06/21/22 07:37 06/21/22 12:29 06/21/22 07:37 06/21/22 07:37 06/21/22 07:37 General appearance: Present: no acute distress, well-nourished - EENT Eyes: Present: PERRL, EOM intact - Neck Neck: Present: supple, normal ROM - Respiratory Respiratory effort: normal (Babies growing up) Respiratory: bilateral: diminished, negative: rales, rhonchi, wheezing - Cardiovascular Rhythm: regular Heart Sounds: Present: S1 & S2 - Extremities Extremities: no ischemia, No edema (She is saving millions of dollars for education 1 reviewed education you have) - Abdominal General gastrointestinal: Present: soft ( shell out many years), non-tender, non-distended, normal bowel sounds - Integumentary Integumentary: Present: clear, warm - Musculoskeletal Musculoskeletal: strength equal bilaterally, generalized weakness - Psychiatric Psychiatric: appropriate mood/affect, cooperative - Neurologic Neurologic: moves all extremities Plan Activity: advance as tolerated, fall precautions Diet: other (Cardiac diet) Additional Instructions: For worsening symptoms contact MD or go to the nearest emergency room as needed. Advised to increase oral intake, take Megace to improve your appetite. See betting agency manager for further evaluation management if no improvement. Follow [facility] heart specialists, Dr. Montse Graham in 1 to 2-week after discharge. Phone #[phone] Follow up with: PRIMARY CARE, [Primary Care Provider] - 7 Days STEPHON OCAMPO MD [Staff Physician] - 7 Days ROGER GRAHAM MD [Staff Physician] - 14 Days Prescriptions: Apixaban [Eliquis] 5 mg PO Q12HR #60 tablet megestroL [Megestrol] 40 mg PO QID #30 tablet Pantoprazole [Protonix TAB] 40 mg PO QDAY #30 tablet
[2022-06-21] MEDS: MEGESTROL 40 MG TAB PO SCH ×2 (18:00→22:53)
[2022-06-21] MEDS ORDERED: LOPERAMIDE 2 MG CAP PO PRN (22:33)
--- NOTE | 2022-06-21 22:39 | Progress Note ---
Assessment and Plan Assessment and plan: -- SYLVIA (acute kidney injury) vasomotor nephropathy/POA Gentle hydration , monitor renal function , avoid nephrotoxin Nephrology consulted .renal ultrasound if needed Improved -- Elevated troponin/stress test negative Aspirin 325 mg p.o. daily. Lipitor 40 mg p.o. daily. Serial cardiac enzymes. Echocardiogram. Cardiology evaluation --Hyperkalemia/resolved Significantly improved potassium today 5.3 Closely monitor electrolytes, low-dose Kayexalatex 1 --Hypoglycemia/resolved D5 half-normal saline at the rate of 100 cc/h. We will monitor the glucose closely. Recheck BMP in the morning. Diabetic education -- Type 2 diabetes mellitus Patient is on metformin, will hold Closely monitor blood sugars, check A1c Avoid hypoglycemic -- Chronic venous stasis ulcers Wound care, antibiotics if needed Patient follows with surgeon Dr. Sterling in the wound clinic Continue wound care Closely monitor the patient and adjust management as needed Patient is hemodynamically and clinically stable for discharge However nurse reports that she refused to go Continue current management DC planning per case management Patient may be discharged home tomorrow if stable Plan of care reviewed with the patient and family member at the bedside Also discussed with the patient's nurse Disposition; patient may be discharged home tomorrow if stable History Interval history: I have seen and examined the patient at the bedside Patient's chart and medications reviewed No new events reported by the nursing Patient is initially discharged this evening however she refused to go saying she is not well Vital signs noted Hospitalist Physical - Constitutional Vitals: Temp Pulse Resp BP Pulse Ox 97.8 F 64 18 134/62 99 06/21/22 21:06 06/21/22 21:06 06/21/22 21:06 06/21/22 21:06 06/21/22 21:06 General appearance: Present: no acute distress, well-nourished - EENT Eyes: Present: PERRL, EOM intact - Neck Neck: Present: supple, normal ROM - Respiratory Respiratory effort: normal Respiratory: bilateral: diminished, negative: rales, rhonchi, wheezing - Cardiovascular Rhythm: regular Heart Sounds: Present: S1 & S2 - Extremities Extremities: no ischemia, No edema - Abdominal General gastrointestinal: soft, non-tender, normal bowel sounds - Integumentary Integumentary: Present: clear, warm - Psychiatric Psychiatric: appropriate mood/affect, cooperative - Neurologic Neurologic: CNII-XII intact, moves all extremities HEART Score - HEART Score Troponin: Troponin T 0.080 ng/mL (0.00-0.029) H 06/19/22 04:20 Results - Labs CBC & Chem 7: 06/21/22 07:56 06/21/22 06:00 Labs: Laboratory Last Values WBC 6.4 K/mm3 (4.5-11.0) 06/21/22 07:56 RBC 3.74 M/mm3 (3.65-5.03) 06/21/22 07:56 Hgb 9.9 gm/dl (10.1-14.3) L 06/21/22 07:56 Hct 31.9 % (30.3-42.9) 06/21/22 07:56 MCV 85 fl (79-97) 06/21/22 07:56 MCH 27 pg (28-32) L 06/21/22 07:56 MCHC 31 % (30-34) 06/21/22 07:56 RDW 14.1 % (13.2-15.2) 06/21/22 07:56 Plt Count 253 K/mm3 (140-440) 06/21/22 07:56 Lymph % (Auto) 43.0 % (13.4-35.0) H 06/21/22 07:56 [place] % (Auto) 5.8 % (0.0-7.3) 06/21/22 07:56 Eos % (Auto) 0.7 % (0.0-4.3) 06/21/22 07:56 Baso % (Auto) 0.9 % (0.0-1.8) 06/21/22 07:56 Lymph # (Auto) 2.7 K/mm3 (1.2-5.4) 06/21/22 07:56 [place] # (Auto) 0.4 K/mm3 (0.0-0.8) 06/21/22 07:56 Eos # (Auto) 0.0 K/mm3 (0.0-0.4) 06/21/22 07:56 Baso # (Auto) 0.1 K/mm3 (0.0-0.1) 06/21/22 07:56 Seg Neutrophils % 49.6 % (40.0-70.0) 06/21/22 07:56 Seg Neutrophils # 3.2 K/mm3 (1.8-7.7) 06/21/22 07:56 Sodium 138 mmol/L (137-145) 06/21/22 06:00 Potassium 5.4 mmol/L (3.6-5.0) H 06/21/22 06:00 Chloride 106.3 mmol/L (98-107) 06/21/22 06:00 Carbon Dioxide 18 mmol/L (22-30) L 06/21/22 06:00 Anion Gap 19 mmol/L 06/21/22 06:00 BUN 12 mg/dL (7-17) 06/21/22 06:00 Creatinine 1.1 mg/dL (0.6-1.2) D 06/21/22 06:00 Estimated GFR 59 ml/min 06/21/22 06:00 BUN/Creatinine Ratio 11 % 06/21/22 06:00 Glucose 82 mg/dL (65-100) 06/21/22 06:00 POC Glucose 183 mg/dL (70-105) H 06/21/22 21:08 Calcium 6.8 mg/dL (8.4-10.2) L D 06/21/22 06:00 Total Bilirubin < 0.20 mg/dL (0.1-1.2) 06/18/22 18:58 AST 29 units/L (5-40) 06/18/22 18:58 ALT 9 units/L (7-56) 06/18/22 18:58 Alkaline Phosphatase 92 units/L (35-129) 06/18/22 18:58 Troponin T 0.080 ng/mL (0.00-0.029) H 06/19/22 04:20 Total Protein 6.5 g/dL (6.3-8.2) 06/18/22 18:58 Albumin 3.8 g/dL (3.9-5) L 06/18/22 18:58 Albumin/Globulin Ratio 1.4 % 06/18/22 18:58 Triglycerides 80 mg/dL (2-149) 06/18/22 18:58 Cholesterol 151 mg/dL (50-199) 06/18/22 18:58 LDL Cholesterol Direct 66 mg/dL (50-130) 06/18/22 18:58 HDL Cholesterol 73 mg/dL (40-59) H 06/18/22 18:58 Cholesterol/HDL Ratio 2.06 % 06/18/22 18:58 Andrews/IV: Voiding Method External Female Catheter Active Medications - Current Medications Current Medications: Generic Name Dose Route Start Last Admin Trade Name Freq PRN Reason Stop Dose Admin Acetaminophen 650 mg 06/18/22 22:34 Acetaminophen 325 Mg Tab PO Q6H PRN Pain, Mild (1-3) Alprazolam 0.25 mg 06/18/22 22:38 06/19/22 12:39 Alprazolam 0.25 Mg Tab PO 0.25 mg Q6H PRN Administration Anxiety Apixaban 5 mg 06/21/22 12:00 06/21/22 12:57 Apixaban 5 Mg Tab PO 5 mg Q12HR OLIVIA Administration Protocol Aspirin 325 mg 06/19/22 10:00 06/21/22 12:28 Aspirin Ec 325 Mg Tab PO 325 mg QDAY OLIVIA Administration Atorvastatin Calcium 40 mg 06/19/22 22:00 06/20/22 22:12 Atorvastatin 40 Mg Tab PO 40 mg QHS OLIVIA Administration Dextrose 50 ml 06/18/22 22:34 06/20/22 17:13 Dextrose 50% In Water (25gm) 50 Ml Syringe IV 10 ml Q30MIN PRN Administration Hypoglycemia Protocol Dextrose/Sodium Chloride 1,000 mls @ 100 mls/hr 06/18/22 23:00 06/21/22 21:13 D5/0.45ns IV Infused DIRECT OLIVIA Infusion Insulin Human Lispro 0 unit 06/19/22 00:00 06/21/22 17:00 Insulin Lispro 100 Unit/Ml SUB-Q Not Given Q6HR [facility] Protocol Loperamide HCl 2 mg 06/21/22 22:33 Loperamide 2 Mg Cap PO Q2H PRN Diarrhea Megestrol Acetate 40 mg 06/21/22 18:00 06/21/22 18:00 Megestrol 40 Mg Tab PO Not Given QID OLIVIA Metoprolol Succinate 50 mg 06/19/22 10:00 06/21/22 12:29 Metoprolol Succinate Xl 50 Mg Tab PO 50 mg QDAY OLIVIA Administration Morphine Sulfate 2 mg 06/18/22 22:34 Morphine 4 Mg/1 Ml Inj IV Q5MIN PRN Chest Pain unrelieved by NTG Nitroglycerin 0.4 mg 06/18/22 22:34 Nitroglycerin 0.4 Mg Tab Subl SL Q5M PRN Chest Pain Ondansetron HCl 4 mg 06/21/22 16:59 06/21/22 17:12 Ondansetron 4 Mg/2 Ml Inj IV 4 mg Q4H PRN Administration Nausea And Vomiting Pantoprazole Sodium 40 mg 06/19/22 10:00 06/21/22 12:30 Pantoprazole 40 Mg Tab PO 40 mg QDAY OLIVIA Administration Pentoxifylline 400 mg 06/19/22 08:00 06/21/22 13:01 Pentoxifylline Er 400 Mg Tab PO 400 mg TID OLIVIA Administration Sodium Bicarbonate 650 mg 06/19/22 22:00 06/21/22 12:29 Sodium Bicarbonate 650 Mg Tab PO 650 mg BID OLIVIA Administration Sodium Chloride 10 ml 06/18/22 22:34 06/20/22 22:12 Sodium Chloride 0.9% 10 Ml Flush Syringe IV 10 ml PRN PRN Administration LINE FLUSH Tramadol HCl 50 mg 06/18/22 22:34 06/20/22 23:30 Tramadol 50 Mg Tab PO 50 mg Q6H PRN Administration Pain, Moderate (4-6) Nutrition/Malnutrition Assess - Dietary Evaluation Nutrition/Malnutrition Findings: Nutrition Notes Start: 06/19/22 14:42 Freq: Status: Active Protocol: Document 06/19/22 14:42 LUANN (Rec: 06/19/22 14:55 LUANN [id number]) Nutrition Notes Need for Assessment generated from: MD Order,Education Initial or Follow up Brief Note Current Diagnosis Acute Kidney Injury,Diabetes, Hypertension,Hyperlipidemia Other Pertinent Diagnosis Hyperkalemia, Wound Infection, Elevated Troponin, HIV/AIDS, s/p Hypoglycemi Current Diet Cardiac Diet Height 5 ft 5 in Weight 53.52 kg [place] Body Weight (kg) 56.81 BMI 19.6 Intake Prior to Admission Good Weight change and time frame 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 Weight Status Appropriate Subjective/Other Information RD consult for nutrition education assessment. No reports available on Pt's PO intake of meals at the time , will assess at F/U. Pt is on Room Air, O2 saturation @ 98%, according to Physical Assessment History notes. Pt has missing teeth, according to Physical Assessment History notes. Pt presents incontinence and diarrhea, according to Physical Assessment History notes. Pt shows Bilateral-Calfs vascular infected wounds as signs of concern for skin risk at the time, according to Physical Assessment History notes. Pt still in critical condition , not a candidate for Nutrition Education at the time, will assess feasibility on F/U. Percent of energy/protein needs met: Prescribed Cardiac Diet provides for energy/protein needs (2,230 Kcal/85 g) during LOS. Skin Integrity/Comment Bilateral-Calfs vascular wounds Nutrition Intervention Follow-Up By: 06/25/22 Additional Comments Nutrition education will be provided at F/U, if feasible. Continue monitoring food tolerance, %PO intake of meals , and BM.
[2022-06-22 00:12] LABS: Hematocrit 31.8 % (30.3-42.9); Hemoglobin 10.6 gm/dl (10.1-14.3); Mean Corpuscular HGB Conc 33 % (30-34); Mean Corpuscular Volume 83 fl (79-97); Platelet Count 251 K/mm3 (140-440); Red Blood Count 3.82 M/mm3 (3.65-5.03); Red Cell Distribution Width 14.1 % (13.2-15.2)
[2022-06-22] MEDS: INSULIN LISPRO 100 UNIT/ML SUB-Q SCH ×2 (00:21→09:20)
[2022-06-22 00:26] LABS: INR 1.2 (0.87-1.13)
[2022-06-22 00:27] LABS: Partial Thromboplastin Time 34.4 Sec. (24.2-36.6)
--- NOTE | 2022-06-22 00:57 | Treadmill Report ---
DATE OF SERVICE: 06/21/2022 DOBUTAMINE NUCLEAR STRESS TEST REFERRING PHYSICIAN: Hospitalist Service. INDICATION FOR PROCEDURE: The patient is a pleasant 72-year-old female who presented with abnormal troponin and mild chest pain, now chest pain free. She also has CKD. She is referred for stress test. She is on Pentoxifylline and thus dobutamine nuclear stress test was performed. PROCEDURE IN DETAIL: The patient was brought to the stress lab in a postabsorptive state. Her baseline EKG is noted to be sinus rhythm without acute ST segment shift. She was given dobutamine stress test per standard protocol. The patient reached a peak of 10 mcg a kilogram per minute of dobutamine to reach a peak heart rate of 125 beats per minute and target heart rate is 124. No ST changes, arrhythmias, or chest pain during stress or recovery. At peak, stress nuclear image dose is given. The patient is recovered appropriately and subsequently stress nuclear imaging is performed. The patient tolerated the procedure well. INTERPRETATION: There were no diagnostic ST changes, arrhythmias, or chest pain during stress or recovery. Nuclear imaging was examined carefully in horizontal long axis, vertical long axis, short axis views, mild GI artifact, no significant motion artifact. SPECT imaging examined carefully in horizontal long axis, vertical long axis views. There was normal homogeneous uptake of radioisotope in all port segments. No evidence of significant fixed or reversible perfusion defect suggestive of prior infarction or ischemia. Gated wall motion reveals normal systolic thickening. Calculated ejection fraction 72%. No TID. CONCLUSIONS: 1. Normal myocardial perfusion scan without evidence of active ischemia or prior infarction. 2. Normal left ventricular systolic performance without evidence of transient ischemic dilatation or stress-induced segmental wall motion abnormalities. TID: [id number] RECEIPT: [id number] BILL/THONG/THELMA
[2022-06-22 05:00] VITALS: BP 103/51
--- NOTE | 2022-06-22 09:00 | Progress Note ---
Assessment and Plan Impression * Acute kidney injury secondary to prerenal azotemia due to volume depletion in setting of ACEi and diuretic * Hypoglycemia * Hyperkalemia * Hypetension Plan: * SYLVIA resolved with conservative management, IVF * Continue to hold diuretics, ACEi for now - recommend holding at discharge * Encouraged po hydration * Dose medications for renal function * Avoid potential nephrotoxins * Glycemic control per primary team Subjective Date of service: 06/22/22 Principal diagnosis: Elevated Troponin Interval history: Patient has no complaints. Not eating - states that she does not have an appetite. Objective - Vital Signs Vital signs: Vital Signs - 12hr 06/21/22 06/21/22 06/22/22 21:06 23:31 01:16 Temperature 97.8 F 98.4 F Pulse Rate 64 57 L Pulse Rate [ 55 L From Monitor] Respiratory 18 18 18 Rate Blood Pressure 134/62 105/46 O2 Sat by Pulse 99 100 97 Oximetry 06/22/22 04:05 Temperature 97.4 F L Pulse Rate 67 Pulse Rate [ From Monitor] Respiratory 17 Rate Blood Pressure 103/51 O2 Sat by Pulse 100 Oximetry - General Appearance General appearance: well-developed, well-nourished EENT: ATNC Respiratory: Present: Clear to Ascultation Cardiology: regular, S1S2 Gastrointestinal: normal, no tenderness, no distended Integumentary: warm and dry Neurologic: alert and oriented x3 Psychiatric: cooperative - Lab 06/21/22 23:53 06/22/22 09:48 Most recent lab results Calcium 6.8 mg/dL (8.4-10.2) L D 06/21/22 06:00 Medications & Allergies - Medications Allergies/Adverse Reactions: Allergies No Known Allergies Allergy (Verified 11/26/21 18:42) Home Medications: Home Medications Medication Instructions Recorded Confirmed Last Taken Type ALPRAZolam [Xanax TAB] 0.25 mg PO Q6H PRN 11/27/21 06/19/22 Unknown History AtorvaSTATin [Lipitor] 40 mg PO QHS 11/27/21 06/19/22 Unknown History Furosemide [Lasix TAB] 20 mg PO QDAY 11/27/21 06/19/22 Unknown History Losartan [Cozaar] 100 mg PO QDAY 11/27/21 06/19/22 Unknown History Metoprolol Xl [Metoprolol 50 mg PO QDAY 11/27/21 06/19/22 Unknown History SUCCINATE ER TAB] Pentoxifylline 400 mg PO TID 11/27/21 06/19/22 Unknown History traMADoL [Ultram 50 MG tab] 50 mg PO TID PRN 11/27/21 06/19/22 Unknown History Doxycycline Hyclate [Doxycycline 100 mg PO Q12HR 6 Days #12 tab 11/28/21 06/19/22 Unknown Rx Hyclate TAB] Sodium Hypochlorite [[place]'s Full 1 applic TP Q12H PRN 30 Days #2 11/28/21 06/19/22 Unknown Rx Strength] bottle Apixaban [Eliquis] 5 mg PO Q12HR #60 tablet 06/21/22 Unknown Rx Pantoprazole [Protonix TAB] 40 mg PO QDAY #30 tablet 06/21/22 Unknown Rx megestroL [Megestrol] 40 mg PO QID #30 tablet 06/21/22 Unknown Rx Active Medications: Generic Name Dose Route Start Last Admin Trade Name Freq PRN Reason Stop Dose Admin Acetaminophen 650 mg 06/18/22 22:34 Acetaminophen 325 Mg Tab PO Q6H PRN Pain, Mild (1-3) Alprazolam 0.25 mg 06/18/22 22:38 06/19/22 12:39 Alprazolam 0.25 Mg Tab PO 0.25 mg Q6H PRN Administration Anxiety Apixaban 5 mg 06/21/22 12:00 06/21/22 22:38 Apixaban 5 Mg Tab PO 5 mg Q12HR OLIVIA Administration Protocol Aspirin 325 mg 06/19/22 10:00 06/21/22 12:28 Aspirin Ec 325 Mg Tab PO 325 mg QDAY OLIVIA Administration Atorvastatin Calcium 40 mg 06/19/22 22:00 06/21/22 22:38 Atorvastatin 40 Mg Tab PO 40 mg QHS OLIVIA Administration Dextrose 50 ml 06/18/22 22:34 06/20/22 17:13 Dextrose 50% In Water (25gm) 50 Ml Syringe IV 10 ml Q30MIN PRN Administration Hypoglycemia Protocol Dextrose/Sodium Chloride 1,000 mls @ 100 mls/hr 06/18/22 23:00 06/21/22 21:13 D5/0.45ns IV Infused DIRECT OLIVIA Infusion Insulin Human Lispro 0 unit 06/19/22 00:00 06/22/22 00:21 Insulin Lispro 100 Unit/Ml SUB-Q Not Given Q6HR [facility] Protocol Loperamide HCl 2 mg 06/21/22 22:33 06/22/22 01:03 Loperamide 2 Mg Cap PO 2 mg Q2H PRN Administration Diarrhea Megestrol Acetate 40 mg 06/21/22 18:00 06/21/22 22:53 Megestrol 40 Mg Tab PO 40 mg QID OLIVIA Administration Metoprolol Succinate 50 mg 06/19/22 10:00 06/21/22 12:29 Metoprolol Succinate Xl 50 Mg Tab PO 50 mg QDAY OLIVIA Administration Morphine Sulfate 2 mg 06/18/22 22:34 Morphine 4 Mg/1 Ml Inj IV Q5MIN PRN Chest Pain unrelieved by NTG Nitroglycerin 0.4 mg 06/18/22 22:34 Nitroglycerin 0.4 Mg Tab Subl SL Q5M PRN Chest Pain Ondansetron HCl 4 mg 06/21/22 16:59 06/21/22 17:12 Ondansetron 4 Mg/2 Ml Inj IV 4 mg Q4H PRN Administration Nausea And Vomiting Pantoprazole Sodium 40 mg 06/19/22 10:00 06/21/22 12:30 Pantoprazole 40 Mg Tab PO 40 mg QDAY [facility] Administration Pentoxifylline 400 mg 06/19/22 08:00 06/21/22 22:39 Pentoxifylline Er 400 Mg Tab PO 400 mg TID OLIVIA Administration Sodium Bicarbonate 650 mg 06/19/22 22:00 06/21/22 22:38 Sodium Bicarbonate 650 Mg Tab PO 650 mg BID OLIVIA Administration Sodium Chloride 10 ml 06/18/22 22:34 06/20/22 22:12 Sodium Chloride 0.9% 10 Ml Flush Syringe IV 10 ml PRN PRN Administration LINE FLUSH Tramadol HCl 50 mg 06/18/22 22:34 06/20/22 23:30 Tramadol 50 Mg Tab PO 50 mg Q6H PRN Administration Pain, Moderate (4-6)
--- NOTE | 2022-06-22 09:25 | Discharge Summary ---
Providers - Providers Date of Admission: 06/18/22 22:34 Date of discharge: 06/22/22 Attending physician: ZOEY MOCTEZUMA 06/18/22 Consult to Cardiac Rehabilitation [CONS] Routine Reason For Exam: Phase I 06/18/22 22:34 Consult to Cardiology [CONS] Routine Consulting Provider: BORIS DEE Reason For Exam: Elevated troponin Consult to Dietitian/Nutrition [CONS] Routine Physician Instructions: Reason For Exam: Reason for Consult: Diet education 06/18/22 22:41 Consult to Physician [CONS] Routine Comment: Consulting Provider: JULY CLARK Physician Instructions: Reason For Exam: sylvia Primary care physician: [employer]ER Hospitalization Reason for admission: CP Condition: Stable Hospital course: -- SYLVIA (acute kidney injury) vasomotor nephropathy/POA Gentle hydration , monitor renal function , avoid nephrotoxin Nephrology consulted .renal ultrasound if needed -- Elevated troponin Aspirin 325 mg p.o. daily. Lipitor 40 mg p.o. daily. Serial cardiac enzymes. Echocardiogram. Cardiology evaluation --Hyperkalemia Significantly improved potassium today 5.3 Closely monitor electrolytes, low-dose Kayexalatex 1 --Hypoglycemia D5 half-normal saline at the rate of 100 cc/h. We will monitor the glucose closely. Recheck BMP in the morning. Diabetic education -- Type 2 diabetes mellitus Patient is on metformin, will hold Closely monitor blood sugars, check A1c Avoid hypoglycemic -- Chronic venous stasis ulcers Wound care, antibiotics if needed Patient follows with surgeon Dr. Sterling in the wound clinic Consult if needed Disposition: 30 STILL A PATIENT Final Discharge Diagnosis (Prints w/discharge instructions): Acute kidney injury/vasomotor nephropathy/resolved. Elevated troponin; stress test is negative for reversible ischemia. Hyperkalemia; resolved. Hypoglycemia/poor oral intake improved. Type 2 diabetes mellitus; low blood sugars continue to monitor. Chronic venous stasis ulcers; outpatient wound care Core Measure Documentation - Palliative Care Palliative Care/ Comfort Measures: Not Applicable - Core Measures Any of the following diagnoses?: none Exam - Constitutional Vitals: Temp Pulse Resp BP Pulse Ox 97.4 F L 67 17 103/51 100 06/22/22 04:05 06/22/22 04:05 06/22/22 04:05 06/22/22 04:05 06/22/22 04:05 General appearance: Present: no acute distress, well-nourished - EENT Eyes: Present: PERRL ENT: hearing intact, clear oral mucosa - Neck Neck: Present: supple, normal ROM - Respiratory Respiratory effort: normal Respiratory: bilateral: CTA - Cardiovascular Heart Sounds: Present: S1 & S2. Absent: rub, click - Extremities Extremities: pulses symmetrical, No edema Peripheral Pulses: within normal limits - Abdominal General gastrointestinal: Present: soft, non-tender, non-distended, normal bowel sounds Female genitourinary: Present: normal - Integumentary Integumentary: Present: clear, warm, dry - Musculoskeletal Musculoskeletal: gait normal, strength equal bilaterally - Psychiatric Psychiatric: appropriate mood/affect, intact judgment & insight - Neurologic Neurologic: CNII-XII intact, moves all extremities Plan Activity: advance as tolerated Weight Bearing Status: Weight Bear as Tolerated Follow up with: STEPHON OCAMPO MD [Staff Physician] - 7 Days PRIMARY CARE, [Primary Care Provider] - 7 Days ROGER GRAHAM MD [Staff Physician] - 14 Days Prescriptions: Apixaban [Eliquis] 5 mg PO Q12HR #60 tablet megestroL [Megestrol] 40 mg PO QID #30 tablet Pantoprazole [Protonix TAB] 40 mg PO QDAY #30 tablet
[2022-06-22] MEDS: MEGESTROL 40 MG TAB PO SCH (09:43)
[2022-06-22] MEDS: PANTOPRAZOLE 40 MG TAB PO SCH (09:44)
[2022-06-22] MEDS: METOPROLOL SUCCINATE XL 50 MG TAB PO SCH (09:44)
[2022-06-22] MEDS: APIXABAN 5 MG TAB PO SCH (09:44)
[2022-06-22] MEDS: PENTOXIFYLLINE ER 400 MG TAB PO SCH (09:44)
[2022-06-22] MEDS: SODIUM BICARBONATE 650 MG TAB PO SCH (09:45)
[2022-06-22] MEDS: traMADol 50 MG TAB PO PRN (09:45)
[2022-06-22] MEDS: ASPIRIN EC 325 MG TAB PO SCH (09:45)
[2022-06-22 10:15] LABS: Calcium 6.6 mg/dL (8.4-10.2)
== END 2022-06-22 14:10 | disposition home health service (06) | DRG 638 ==
LOC: ED 16:16 → 4A 22:34
PROVIDERS: ADMIT Hospitalist; ATTEND Hospitalist
DX: E11.649 Type 2 diabetes mellitus with hypoglycemia without coma (principal); B20 Human immunodeficiency virus [HIV] disease; E46 Unspecified protein-calorie malnutrition; Z68.1 Body mass index [BMI] 19.9 or less, adult; N17.0 Acute kidney failure with tubular necrosis; I87.2 Venous insufficiency (chronic) (peripheral); E87.5 Hyperkalemia; I10 Essential (primary) hypertension; E78.00 Pure hypercholesterolemia, unspecified; R77.8 Other specified abnormalities of plasma proteins; W18.39XA Other fall on same level, initial encounter; Y93.89 Activity, other specified; Y92.89 Other specified places as the place of occurrence of the external cause; Y99.8 Other external cause status; E11.51 Type 2 diabetes mellitus with diabetic peripheral angiopathy without gangrene; I83.009 Varicose veins of unspecified lower extremity with ulcer of unspecified site; F32.9 Major depressive disorder, single episode, unspecified; R62.7 Adult failure to thrive; Z95.1 Presence of aortocoronary bypass graft; Z98.61 Coronary angioplasty status; Z79.899 Other long term (current) drug therapy; Z82.49 Family history of ischemic heart disease and other diseases of the circulatory system; Z87.891 Personal history of nicotine dependence; Z79.84 Long term (current) use of oral hypoglycemic drugs
CPT/HCPCS: 36415; 71045; 78452; 80048; 80053; 80061; 82565; 82962; 84484; 85025; 85027; 85610; 85730; 93005; 93017; 93306; 96374; 96375; 99285; G0378; J3490; J7060; J7070; Q9967; A9502; C8929; J0461; J1250; J1644; J1815; J2405

== ENCOUNTER 2022-06-24 17:48 | Inpatient (IN) | payer MEDICARE ==
[2022-06-24] MEDS ORDERED: GLUCAGON (HUMAN RECOMBINANT) 1 MG/ML INJ IM ONE (19:11)
[2022-06-24] MEDS ORDERED: D5W/0.45% NACL 1,000 ML IV SCH (20:00)
[2022-06-24] MEDS: DEXTROSE 50% IN WATER (25GM) 50 ML SYRINGE IV ONE ×2 (20:07→21:55)
[2022-06-24 21:35] LABS: Basophils % (Auto) 0.4 % (0.0-1.8); Eosinophils % (Auto) 0.3 % (0.0-4.3); Hematocrit 36.8 % (30.3-42.9); Hemoglobin 11.4 gm/dl (10.1-14.3); Lymphocytes # (Auto) 2.1 K/mm3 (1.2-5.4); Lymphocytes % (Auto) 24.9 % (13.4-35.0); Mean Corpuscular HGB Conc 31 % (30-34); Mean Corpuscular Volume 86 fl (79-97); Monocytes # (Auto) 0.4 K/mm3 (0.0-0.8); Monocytes % (Auto) 4.7 % (0.0-7.3); Platelet Count 250 K/mm3 (140-440); Red Blood Count 4.28 M/mm3 (3.65-5.03)
[2022-06-24 21:42] LABS: Albumin 3.8 g/dL (3.9-5); Calcium 7.1 mg/dL (8.4-10.2)
[2022-06-24] MEDS ORDERED: SODIUM CHLORIDE 0.9% 1000 ML 1,000 ML IV ONE ×2 (23:40)
[2022-06-24] MEDS ORDERED: MAGNESIUM HYDROXIDE (MOM) ORAL LIQD UDC PO PRN (23:43)
[2022-06-24] MEDS ORDERED: ACETAMINOPHEN 325 MG TAB PO PRN (23:43)
[2022-06-24] MEDS ORDERED: MORPHINE 4 MG/1 ML INJ IV PRN (23:43)
[2022-06-24] MEDS ORDERED: ONDANSETRON 4 MG/2 ML INJ IV PRN (23:43)
[2022-06-24] MEDS ORDERED: MORPHINE 2 MG/1 ML INJ IV PRN (23:43)
[2022-06-24] MEDS ORDERED: D5W/0.9% NACL 1,000 ML IV SCH (23:45)
[2022-06-25] MEDS ORDERED: SODIUM CHLORIDE 0.9% 1000 ML 1,000 ML IV ONE (00:04)
--- NOTE | 2022-06-25 00:11 | Emergency Department Report ---
HPI - General Chief Complaint: Hypoglycemia PUI?: No Time Seen by Provider: 06/24/22 18:41 - HPI HPI: This is a 72-year-old female type 2 insulin-dependent diabetic, with multiple medical comornbidities, brought in by EMS for evaluation of hypoglycemia. ED Past Medical Hx - Past Medical History Previous Medical History?: Yes Hx Hypertension: Yes Hx Diabetes: Yes Hx Deep Vein Thrombosis: Yes Hx HIV: Yes Additional medical history: DIABETIC ULCERS/ HIGH CHLOESTROL - Surgical History Hx Breast Surgery: Yes (Lumpectomy) Additional Surgical History: Lower extremity chronic ulcer debridements - Social History Smoking Status: Never Smoker - Medications Home Medications: Home Medications Medication Instructions Recorded Confirmed Last Taken Type ALPRAZolam [Xanax TAB] 0.25 mg PO Q6H PRN 11/27/21 06/19/22 Unknown History AtorvaSTATin [Lipitor] 40 mg PO QHS 11/27/21 06/19/22 Unknown History Furosemide [Lasix TAB] 20 mg PO QDAY 11/27/21 06/19/22 Unknown History Losartan [Cozaar] 100 mg PO QDAY 11/27/21 06/19/22 Unknown History Metoprolol Xl [Metoprolol 50 mg PO QDAY 11/27/21 06/19/22 Unknown History SUCCINATE ER TAB] Pentoxifylline 400 mg PO TID 11/27/21 06/19/22 Unknown History traMADoL [Ultram 50 MG tab] 50 mg PO TID PRN 11/27/21 06/19/22 Unknown History Doxycycline Hyclate [Doxycycline 100 mg PO Q12HR 6 Days #12 tab 11/28/21 06/19/22 Unknown Rx Hyclate TAB] Sodium Hypochlorite [Dakin's Full 1 applic TP Q12H PRN 30 Days #2 11/28/21 06/19/22 Unknown Rx Strength] bottle Apixaban [Eliquis] 5 mg PO Q12HR #60 tablet 06/21/22 Unknown Rx Pantoprazole [Protonix TAB] 40 mg PO QDAY #30 tablet 06/21/22 Unknown Rx megestroL [Megestrol] 40 mg PO QID #30 tablet 06/21/22 Unknown Rx ED Review of Systems ROS: Stated complaint: LOW SURGAR Other details as noted in HPI Remainder of ROS negative Comment: All other systems reviewed and negative Physical Exam - Physical Exam Vital Signs: Vital Signs 06/24/22 06/24/22 17:48 18:55 Temperature 98.5 F Pulse Rate 100 H Respiratory 16 Rate Blood Pressure 143/90 [Left] O2 Sat by Pulse 100 100 Oximetry General: Gen: pt is well appearing, no acute distress HEENT: Normocephalic atraumatic pupils equally round and reactive to light extraocular muscles intact sclera anicteric Neck: Full range of motion, no midline spinal tenderness palpation, no JVD, no carotid bruits, no nuchal rigidity CVS: S1-S2 regular rate and rhythm with no gallops rubs or murmurs, chest wall nontender Pulmonary: Clear to auscultation bilaterally, no wheezes rales or rhonchi Abdomen: Soft nondistended nontender no guarding or rebound tenderness, no palpable deformities or step-offs, normal active bowel sounds, no hepa tosplenomegaly, no pulsatile masses : Deferred Extremities: No cyanosis no clubbing no edema, intact distal peripheral pulses, Integumentary: Skin normal, no petechia no purpura no abscess no lacerations no evidence of trauma no evidence of infection Neuro: Patient is awake alert and oriented to person place time situation, mentating well, cranial nerves II through XII intact, no focal neurodeficits, sensation grossly tact Psych: Calm cooperative, mood affect normal ED Course Vital Signs 06/24/22 06/24/22 17:48 18:55 Temperature 98.5 F Pulse Rate 100 H Respiratory 16 Rate Blood Pressure 143/90 [Left] O2 Sat by Pulse 100 100 Oximetry - Reevaluation(s) Reevaluation #1: 06/25/22 00:10 pt is Aox4,. mentating well, no focal deficits ED Medical Decision Making - Lab Data Result diagrams: 06/24/22 21:05 06/24/22 21:05 - EKG Data -: EKG Interpreted by Me EKG shows normal: sinus rhythm Rate: normal - EKG Data When compared to previous EKG there are: no significant change - Medical Decision Making 72-year-old female with multiple medical comorbidities including insulin- dependent diabetes brought in by EMS for hypoglycemia with a fingerstick of 31. Vital signs stable. Patient hypoglycemic here. She was given juice but was persistently hypoglycemic. She was started on D5 half NS drip. Serum labs reviewed. Patient's mentation remains normal and she remains hemodynamically stable. Patient has been accepted by Dr. Aragon for admission to the hospitalist service. Critical Care Time: No Critical care attestation.: If time is entered above; I have spent that time in minutes in the direct care of this critically ill patient, excluding procedure time. ED Disposition Clinical Impression: Hypoglycemia, Lactic acidosis Disposition: ADMITTED INPATIENT Is pt being admited?: Yes Does the pt Need Aspirin: No Condition: Stable
--- NOTE | 2022-06-25 00:22 | History and Physical Report ---
History of Present Illness Date of examination: 06/24/22 Date of admission: 06/24/2022 Chief complaint: Altered mental status Hypoglycemia History of present illness: 72-year-old female with known history of diabetes mellitus, hypertension, history of HIV and diabetic foot ulcers presents to the emergency room today for evaluation of hypoglycemia. Initial blood sugar was said to be about 26.. Patient was given D50 and orange juice with significant improvement. Patient states she has not been having good oral intake and has been using her insulin as recommended. She denies any chest pain or shortness of breath, no nausea or vomiting and no abdominal pain. Work-up in the emergency room today, lab reveals creatinine of 3.0, blood glucose of 62, lactic acid of 4.3 Patient admitted and started on IV fluids. Past History Past Medical History: diabetes, HIV/AIDS, hypertension, hyperlipidemia Past Surgical History: Other (Lumpectomy, bilateral lower extremity ulcers with debridement.) Social history: smoking (Former smoker) Family history: no significant family history Medications and Allergies Allergies Allergy/AdvReac Type Severity Reaction Status Date / Time No Known Allergies Allergy Verified 06/24/22 18:08 Home Medications Medication Instructions Recorded Confirmed Last Taken Type ALPRAZolam [Xanax TAB] 0.25 mg PO Q6H PRN 11/27/21 06/19/22 Unknown History AtorvaSTATin [Lipitor] 40 mg PO QHS 11/27/21 06/19/22 Unknown History Furosemide [Lasix TAB] 20 mg PO QDAY 11/27/21 06/19/22 Unknown History Losartan [Cozaar] 100 mg PO QDAY 11/27/21 06/19/22 Unknown History Metoprolol Xl [Metoprolol 50 mg PO QDAY 11/27/21 06/19/22 Unknown History SUCCINATE ER TAB] Pentoxifylline 400 mg PO TID 11/27/21 06/19/22 Unknown History traMADoL [Ultram 50 MG tab] 50 mg PO TID PRN 11/27/21 06/19/22 Unknown History Doxycycline Hyclate [Doxycycline 100 mg PO Q12HR 6 Days #12 tab 11/28/21 06/19/22 Unknown Rx Hyclate TAB] Sodium Hypochlorite [Dakin's Full 1 applic TP Q12H PRN 30 Days #2 11/28/21 06/19/22 Unknown Rx Strength] bottle Apixaban [Eliquis] 5 mg PO Q12HR #60 tablet 06/21/22 Unknown Rx Pantoprazole [Protonix TAB] 40 mg PO QDAY #30 tablet 06/21/22 Unknown Rx megestroL [Megestrol] 40 mg PO QID #30 tablet 06/21/22 Unknown Rx Active Meds: Active Medications Dextrose/Sodium Chloride (D5/0.45ns) 1,000 mls @ 150 mls/hr IV DIRECT OLIVIA Last Admin: 06/24/22 22:11 Dose: 150 mls/hr Sodium Chloride (Nacl 0.9% 1000 Ml) 1,000 mls @ 999 mls/hr IV BOLUS ONE Stop: 06/25/22 00:40 Last Admin: 06/25/22 00:00 Dose: 999 mls/hr Sodium Chloride (Nacl 0.9% 1000 Ml) 1,000 mls @ 999 mls/hr IV BOLUS ONE Stop: 06/25/22 00:40 Last Admin: 06/25/22 00:00 Dose: 999 mls/hr Sodium Chloride (Nacl 0.9% 1000 Ml) 1,000 mls @ 999 mls/hr IV BOLUS ONE Stop: 06/25/22 01:04 Review of Systems All systems: negative (As stated in the HPI) Exam - Constitutional Vitals: Temp Pulse Resp BP Pulse Ox 98.5 F 100 H 16 143/90 100 06/24/22 17:48 06/24/22 17:48 06/24/22 17:48 06/24/22 17:48 06/24/22 18:55 General appearance: Present: no acute distress, well-nourished - EENT Eyes: Present: PERRL, EOM intact. Absent: scleral icterus ENT: hearing intact, clear oral mucosa, dentition normal - Neck Neck: Present: supple, normal ROM - Respiratory Respiratory effort: normal Respiratory: bilateral: CTA - Cardiovascular Rhythm: regular Heart Sounds: Present: S1 & S2. Absent: gallop, systolic murmur, diastolic murmur, rub, click - Extremities Extremities: no ischemia, pulses intact, No edema, normal temperature, Full ROM, abnormal (Dressing over bilateral lower extremity ulcers) Peripheral Pulses: within normal limits - Abdominal General gastrointestinal: Present: soft, non-tender, non-distended, normal bowel sounds. Absent: mass - Integumentary Integumentary: Present: clear, warm, dry, normal turgor. Absent: rash - Musculoskeletal Musculoskeletal: strength equal bilaterally - Psychiatric Psychiatric: appropriate mood/affect, intact judgment & insight, memory intact, cooperative - Neurologic Neurologic: CNII-XII intact, no focal deficits, moves all extremities Results - Labs CBC & Chem 7: 06/24/22 21:05 06/24/22 21:05 Labs: Abnormal lab results 06/24/22 06/24/22 06/24/22 Range/Units 18:20 21:05 21:05 MCH 27 L (28-32) pg Chloride 109.0 H (98-107) mmol/L Carbon Dioxide 14 L (22-30) mmol/L Creatinine 3.0 H D (0.6-1.2) mg/dL Glucose 62 L (65-100) mg/dL POC Glucose 26 L (70-105) mg/dL Lactic Acid (0.7-2.0) mmol/L Calcium 7.1 L (8.4-10.2) mg/dL Albumin 3.8 L (3.9-5) g/dL 06/24/22 Range/Units 21:05 MCH (28-32) pg Chloride (98-107) mmol/L Carbon Dioxide (22-30) mmol/L Creatinine (0.6-1.2) mg/dL Glucose (65-100) mg/dL POC Glucose (70-105) mg/dL Lactic Acid 4.30 H* (0.7-2.0) mmol/L Calcium (8.4-10.2) mg/dL Albumin (3.9-5) g/dL Assessment and Plan Assessment: 1. Hypoglycemia 2. Bilateral lower extremity ulcers 3. Altered mental status 4. Hypertension 5. Diabetes mellitus Plan: 1. Patient admitted and placed on dextrose IV fluid. We will monitor Accu- Cheks 2. We will resume routine home medications monitor vital signs closely. 3. Dietary consult for evaluation. 4. Wound care evaluation. DVT prophylaxis: Sequential compression device. CODE STATUS: Full code
[2022-06-25] MEDS: DEXTROSE 50% IN WATER (25GM) 50 ML SYRINGE IV PRN ×2 (04:08→18:49)
[2022-06-25 04:51] LABS: Bilirubin,Urine NEG (Negative); Blood,Urine NEG (Negative); Color,Urine Straw (Yellow); Protein,Urine <15 mg/dL mg/dL (Negative); RBC,Urine < 1.0 /HPF (0.0-6.0); Urobilinogen,Urine < 2 mg/dL (<2.0)
[2022-06-25] MEDS ORDERED: INSULIN LISPRO 100 UNIT/ML SUB-Q SCH (06:00)
[2022-06-25 07:03] LABS: Calcium 6.5 mg/dL (8.4-10.2)
[2022-06-25] MEDS ORDERED: traMADol 50 MG TAB PO PRN (11:32)
[2022-06-25] MEDS ORDERED: ALPRAZolam 0.25 MG TAB PO PRN (11:32)
[2022-06-25] MEDS ORDERED: SODIUM HYPOCHLORITE, DAKIN'S FULL STRENGTH (0.5%) 473 ML TOPICAL SOLN TP PRN (11:32)
--- NOTE | 2022-06-25 11:39 | Event Note ---
Date: 06/25/22 Patient seen today with her sister at the bedside. She was released from the hospital on 06/12 after being treated for hypoglycemia. Metformin was discontinued at that time. Medication list was reviewed which showed Tresiba 35 units daily and Humalog 8 units with meals. Patient reports taking insulin after discharge. We discussed not taking insulin or metformin at discharge. Sister updated as well. Patient has an upcoming visit with her primary care doctor to discuss her diabetes medication regimen. She was prescribed megase at discharge but it was not ready for pickup until today. Will continue home medications, D5W and megase. If patient glucose and appetite improves, anticipated discharge in the morning.
[2022-06-25] MEDS ORDERED: METOPROLOL SUCCINATE XL 50 MG TAB PO SCH (12:00)
[2022-06-25] MEDS ORDERED: PANTOPRAZOLE 40 MG TAB PO SCH (12:00)
[2022-06-25] MEDS ORDERED: CITALOPRAM 20 MG TAB PO SCH (12:00)
[2022-06-25] MEDS: MEGESTROL 40 MG TAB PO SCH ×3 (14:04→21:08)
[2022-06-25] MEDS: PENTOXIFYLLINE ER 400 MG TAB PO SCH ×2 (14:05→21:08)
[2022-06-25 14:32] LABS: Hematocrit 31.8 % (30.3-42.9); Hemoglobin 10.3 gm/dl (10.1-14.3); Mean Corpuscular HGB Conc 33 % (30-34); Mean Corpuscular Volume 83 fl (79-97); Platelet Count 244 K/mm3 (140-440); Red Blood Count 3.82 M/mm3 (3.65-5.03); Red Cell Distribution Width 14.3 % (13.2-15.2)
[2022-06-25 14:40] LABS: INR 1.03 (0.87-1.13)
[2022-06-25 14:41] LABS: Partial Thromboplastin Time 30.4 Sec. (24.2-36.6)
[2022-06-25] MEDS ORDERED: POTASSIUM CHLORIDE ER 20 MEQ TAB PO ONE (15:13)
[2022-06-25 21:00] VITALS: BP 109/50
[2022-06-25] MEDS ORDERED: NON-FORMULARY EACH (Apixaban 5 MG Tablet) PO SCH (22:00)
[2022-06-25] MEDS ORDERED: APIXABAN 5 MG TAB PO SCH ×2 (22:00)
== END 2022-06-25 22:48 | disposition home or self-care (01) | DRG 593 ==
LOC: ED 17:48 → 3A 23:47
PROVIDERS: ADMIT Internal Medicine Geriatric Medicine; ATTEND Student in an Organized Health Care Education/Training Program
DX: L97.909 Non-pressure chronic ulcer of unspecified part of unspecified lower leg with unspecified severity (principal); B20 Human immunodeficiency virus [HIV] disease; E87.2 Acidosis; I10 Essential (primary) hypertension; E11.649 Type 2 diabetes mellitus with hypoglycemia without coma
CPT/HCPCS: 36415; 80048; 80053; 81001; 82140; 82565; 82962; 85025; 85027; 85610; 85730; G0378; J3490; J7070; J7030; J7042